=== PATIENT | female | born 1935 | race Caucasian/White ===

== ENCOUNTER 2019-08-30 13:57 | Inpatient (IN) | payer MEDICARE, SELFPAY ==
[2019-08-30] VITALS (8 sets, daily range): BP systolic 157–190; BP diastolic 98–109; PULSE 75–103; RESP 18–24; TEMP 36.2–37.4; O2SAT 83–95; BMI 27.3
--- NOTE | ~2019-08-30 | NM_ITS ---
EXAMINATION: NM pulmonary perfusion DATE: 08/31/2019 13:28 INDICATION: Severe hypoxemia. TECHNIQUE: 5.5 mCi Tc-99m MAA was administered intravenously for perfusion images. Scintigraphic maribel ges of the chest were obtained. COMPARISON: Chest single view 08/30/2019 FINDINGS: Perfusion images show small defects in the upper lobes. ] IMPRESSION: 1. Pulmonary embolism absent (normal or very low probability). Reviewed, dictated and finalized at location A.
--- NOTE | ~2019-08-30 | CT_ITS ---
EXAMINATION: CTA chest PE protocol DATE: 08/31/2019 13:04 INDICATION: Hypoxia, shortness of breath TECHNIQUE: Computed tomography angiography (CTA) of the chest was performed with 100 mL Omnipaque-350 intravenous contrast timed to evaluate the pulmonary arteries. Coronal maximum intensity projection 3D-reconstructions were created by the technologist. Automated exposure control and iterative reconst ruction technique were employed. Exam dose: 223.32 mGy-cm total exam DLP. COMPARISON: 08/30/2019 portable AP chest FINDINGS: There is diagnostic contrast enhancement of the pulmonary arteries and no evidence of main or segmental pulmonary artery embolism. The peripheral pulmonary arteries are not optimally demonstra noemy due to motion. Cardiomegaly. No pericardial or pleural effusion. No hilar or mediastinal mass lesion or lymphadenopathy. Normal size and homogeneous enhancement of th e thyroid gland. Mild thoracic aortic aneurysm, the ascending aorta measuring up to 4.2 cm approximat e diameter, the aortic arch approximately 3.1 cm diameter. No evidence of thoracic aortic dissection. No pulmonary consolidation. Normal adrenal glands. Status post cholecystectomy. Diverticulosis of the colon. There is a large osteosclerotic lesion of L1, most likely a bone island; osteosclerotic metastatic le carly would be less likely. IMPRESSION: No evidence of pulmonary embolism Mild thoracic aortic aneurysm Reviewed, dictated and finalized at Location A. Reviewed, dictated and finalized at location B.
--- NOTE | ~2019-08-30 | XR_ITS ---
EXAMINATION: XR chest 1V portable EXAM DATE: 08/30/2019 15:55 INDICATION: Hypoxia and shortness of breath. TECHNIQUE: Portable AP frontal chest x-ray was obtained. Comparison is made to prior examination from 08/17/2018. FINDINGS: The lungs are clear. There are no pleural effusions. The cardiac silhouette is enlarged. There is no pneumothorax suspected. Bones appear osteopenic. IMPRESSION: Cardiomegaly. Reviewed, dictated and finalized at location A. IMPRESSION: Cardiomegaly.
--- NOTE | 2019-08-30 14:38 | ECG_ITS ---
Measurements Intervals [place] Rate: 98 P: -2 [place]: 169 QRS: -21 QRSD: 93 T: -18 QT: 344 QTc: 439 Interpretive Statements SINUS RHYTHM WITH SINUS ARRHYTHMIA POSSIBLE LEFT ATRIAL ENLARGEMENT POSSIBLE LEFT VENTRICULAR HYPERTROPHY BORDERLINE ST-T WAVE ABNORMALITY- DIFFUSE LEADS BASELINE ARTIFACT- I, III, AVL, AVF BORDERLINE ECG Electronically Signed On 08-30-2019 16:14:19 CDT by Nithin Lobo D.O.
--- NOTE | 2019-08-30 14:45 | ED.SOB ---
HPI - SOB/Dyspnea General Chief Complaint: Shortness of Breath/Dyspnea Stated Complaint: sob. sent from md office Time Seen by Provider: 08/30/19 14:23 Source: patient and family Mode of arrival: wheelchair Limitations: no limitations History of Present Illness HPI Narrative: THis patient is an 83 year old female with history of chronic hypoxemia, on home oxygen who presents from Dr. Wilde's office due to low oxygen saturation. Patient states that she wears 2 NC at home and she went for follow up appointment today. Patient was told that her oxygen was too low and she was found to have high blood pressure so she was sent to ER. Patient reports she does not feel more short of breath than usual. She denies worsening cough, fever, chills, nausea or vomiting. She also denies URI symptoms. Patient also denies chest pain. She reportes she has some anxiousness and dizziness early but she states she feels fine. She states she does not want to be intubated but she is okay with BIPAP. Related Data Home Medications Medication Instructions Recorded Confirmed aspirin 81 mg tablet,delayed 81 mg PO DAILY 01/27/19 08/30/19 release calcium carbonate 600 mg calcium 600 mg PO DAILY 01/27/19 08/30/19 (1,500 mg) tablet docusate sodium 50 mg capsule 50 mg PO DAILY 01/27/19 08/30/19 ibuprofen 200 mg tablet 200 mg PO Q6H PRN 01/27/19 08/30/19 multivitamin 1 tablet PO DAILY 01/27/19 08/30/19 vitamin B complex 1 tablet PO DAILY 01/27/19 08/30/19 Allergies Allergy/AdvReac Type Severity Reaction Status Date / Time Iodinated Contrast Media Allergy Unknown Hives Verified 08/30/19 14:43 iodine Allergy Unknown Unknown Verified 08/30/19 14:43 Penicillins Allergy Unknown Rash Verified 08/30/19 14:43 shellfish derived Allergy Unknown Hives Verified 08/30/19 14:43 IV CONTRAST Allergy Unknown unknown Uncoded 08/30/19 14:43 Review of Systems Review of Systems: All systems reviewed & are unremarkable except as noted in HPI and below Constitutional: Constitutional: Denies chills, Denies fever(s) and Denies weakness Cardiovascular: Cardiovascular: Denies chest pain Respiratory: Respiratory: Denies chest congestion, Denies cough, Reports dyspnea (chronc) and Denies wheezing Gastrointestinal: Gastrointestinal: Denies abdominal pain, Denies diarrhea, Denies nausea and Denies vomiting Integumentary/Breasts: Skin/Breast: Denies breast pain PMFSH Past Medical History Medical History (Updated 08/30/19 @ 18:56 by Yanni Contreras MD) Breast cancer Hypertension PFO (patent foramen ovale) Family History Family History (Updated 05/27/17 @ 08:18 by DOCTOR UNKNOWN) Father Family history of cardiovascular disease Mother Family history of cardiovascular disease Sibling Family history of cardiovascular disease Social History Social History Smoking status: Never smoker Second hand tobacco smoke exposure: No Alcohol intake: never Exam Narrative: Exam Narrative: GENERAL: Well-appearing, well-nourished, and in no acute distress. HEAD: Normocephalic, atraumatic EYES: PERRLA and EOMI, conjunctiva clear without discharge EARS: TM's clear bilaterally without erythema or dullness NOSE: Nares clear, no rhinorrhea or epistaxis THROAT:Mucous membranes moist, Oropharynx normal without erythema, exudate, peritonsillar swelling or fluctuance NECK: Supple, without lymphadenopathy or mass RESPIRATORY: No respiratory distress, Airway patent, Respirations non-labored, Clear to auscultation without rales, rhonchi or wheeze HEART: Regular rate and rhythm. No murmur heard. Normal peripheral pulses. ABDOMEN: Soft, nontender, nondistended, normal active bowel sounds. No masses. No rebound or guarding, No organomegaly. EXTREMITIES: No edema, normal strength with full range of motion. SKIN: Warm, dry, normal color without rash NEURO: Alert and oriented x3. CN 2-12 grossly intact.
[2019-08-30 15:05] LABS: Alveolar/Arterial O2 Gradient 290.7 mmHg; Base Excess ABG -1.8 mEq/l (+/-2.0); Carboxyhemoglobin 0.6 % THb (0-2.0); Fractional Inspired Oxygen 52 %; HCO3 ABG 20.8 mEq/l (22.0-26.0); Methemoglobin ABG 0.3 %THb (0-1.5); Oxygen Content ABG 20.6 %vol (16.0-22.0); Oxyhemoglobin 84.9 % THb (90.0-100.0); PCO2 ABG 30.5 mmHg (35.0-45.0); PO2 FiO2 Ratio Arterial Blood 0.88 %; Reduced Hemoglobin 14.2 %THb (0-5.0); Total Hemoglobin 17.3 g/dL (12.0-18.0); pH ABG 7.451 (7.350-7.450)
[2019-08-30 15:10] LABS: PO2 ABG 45.9 mmHg (80.0-100.0)
[2019-08-30 15:11] LABS: Device NASAL CANNULA; Modified Allen's Test Pass; Oxygen Saturation ABG 84.5 % (95.0-100.0); Site Drawn RIGHT RADIAL
[2019-08-30 15:21] LABS: Basophils Absolute Auto 0.1 K/mm3 (0.0-0.1); Basophils Percent Auto 0.5 % (0.2-1.2); Eosinophils Absolute Auto 0.2 K/mm3 (0-0.3); Eosinophils Percent Auto 2.3 % (0-4.4); Hematocrit 51.6 % (37.0-47.0); Hemoglobin 17.2 g/dL (12.0-15.0); Immature Granulocyte Absolute 0.04 K/mm3 (0.00-0.031); Immature Granulocyte Percent A 0.4 % (0-0.5); Lymphocytes Absolute Auto 2.09 K/mm3 (0.9-3.2); Lymphocytes Percent Auto 21.8 % (18.3-44.2); Mean Corpuscular HGB Conc 33.3 g/dl (32-36); Mean Corpuscular Hemoglobin 29.5 pg (26-34); Mean Corpuscular Volume 88.5 fl (80-100); Mean Platelet Volume 9.3 fl (7.4-10.4); Monocytes Absolute Auto 0.6 K/mm3 (0.1-0.6); Monocytes Percent Auto 6.1 % (2.6-8.5); Neutrophils Absolute Auto 6.6 K/mm3 (1.3-6.7); Neutrophils Percent Auto 68.9 % (45.5-73.1); Platelet Count Result 324 k/mm3 (150-375); Red Blood Count 5.83 M/mm3 (4.2-5.4); Red Cell Distribution Width 14.7 % (11.5-14.5); White Blood Count 9.6 K/mm3 (4.5-10.0)
[2019-08-30 15:37] LABS: Alanine Aminotransferase 23 U/L (4-35); Albumin Level 4.5 g/dL (3.5-5.1); Alkaline Phosphatase 114 U/L (38-126); Aspartate Amino Transferase 31 U/L (14-36); Bilirubin,Total 0.7 mg/dL (0.2-1.3); Blood Urea Nitrogen 14 mg/dL (7-17); Carbon Dioxide 25 mmol/L (22-30); Chloride 103 mmol/L (98-107); Estimated CRCL calculation 49 ml/min; Estimated Glomerular Filt Rate > 60; Glucose 100 mg/dL (65-105); Potassium 3.6 mmol/L (3.4-5.0); Sodium 137 mmol/L (137-145)
[2019-08-30] MEDS: ENOXAPARIN 80 MG/0.8 ML SYRINGE 70 MG SUB-Q (17:31)
--- NOTE | 2019-08-30 19:38 | ADMGEN ---
This patient, Allison Gong, was admitted to IMU Room 204-01. Patient/family oriented to hospital policies and general routines including ID bracelet, bed and alarms, visiting hours, pain management, procedures, bathroom and other care routines, personal items, smoking policy, room service/diet, and visiting hours. Valuables list has been completed. Information on how to activate the Rapid Response Team has been discussed. Patient/Family are encouraged to report perceived risks to care and to ask questions if they do not understand what they are told or what they should do.
--- NOTE | 2019-08-30 21:59 | PM.IMHP ---
H&P: HPI History of Present Illness Chief complaint: chronic hypoxemia/hypertension Narrative: Allisno Gong is a 83 year old female the patient has had chronic hypoxia has been on O2 at 2 L during the day and 1 L at night. The patient tells me that she feels fine she is not short of breath. She tells me that she has had an extensive workup for her hypoxia in the past. The patient does have a patent pfo. there is a temporary closure of the PFO at 1 time to see if her hypoxia improved and had not. The patient saw Pieter bruno and Dr. Wilde is office today and the patient's O2 saturations were found to be too low. And her blood pressure was high. The patient does not feel any more short of breath than usual. She has no fever no chills no cough no dizziness. She states that she feels fine. She was sent to the emergency room due to low O2 saturations and high blood pressure. Dr. Wilde has been notified. The patient is unable to get a CT pulmonary at this time due to contrast allergy. However subcu Lovenox was given prophylactically for possible PE. The patient has had a small PE in the past had had been on Xarelto For short period of time. Patient was placed on a non-rebreather. The patient is now satting 95% on 15 L per nasal cannula. Date of service 08/30/2019 Review of Systems Review of Systems: All systems reviewed & are unremarkable except as noted in HPI and below Constitutional: Constitutional: Reports as per HPI and Reports no additional constitutional complaints Eyes: Eyes: Reports as per HPI and Reports no additional eye complaints ENT: Reports system reviewed and no additional complaints, except as documented and Reports Normal hearing present Cardiovascular: Cardiovascular: Reports no additional cardiovascular complaints Respiratory: Respiratory: Reports no additional respiratory complaints and Reports no additional respiratory complaints Gastrointestinal: Gastrointestinal: Reports as per HPI and Reports no additional gastrointestinal complaints Musculoskeletal: Musculoskeletal: Reports no additional musculoskeletal complaints Integumentary/Breasts: Skin/Breast: Reports system reviewed and no additional complaints, except as docu and Reports as per HPI Neurologic: Reports system reviewed and no additional complaints, except as documented, Reports as per HPI and Reports Normal hearing present Psychiatric: Psychiatric: Reports no additional psychiatric complaints and Reports as per HPI Endocrine: Endocrine: Reports no additional endocrine complaints Hematologic/Lymphatic: Hematologic/Lymphatic: Reports no additional hematologic/lymphatic complaints Allergic/Immunologic: Allergic/Immunologic: Reports no additional allergic/immunologic complaints PMFSH Past Medical History Medical History (Updated 08/30/19 @ 22:14 by Florecita Moseley NP) Breast cancer CVA (cerebral vascular accident) cerebellar Depression History of breast cancer lumpectomy and tamoxifen History of kidney stones Hyperlipidemia Hypertension Hypertension Migraines Osteoporosis PFO (patent foramen ovale) Pulmonary emboli the patient stated that she was on Xarelto for Scharff. Time. Right wrist fracture Surgical History Surgical History (Updated 08/30/19 @ 22:10 by Florecita Moseley NP) H/O cataract extraction bilateral History of appendectomy History of laparoscopic cholecystectomy Status post left breast lumpectomy Status post-operative repair of closed fracture of right hip Family History Family History (Updated 08/30/19 @ 22:11 by Florecita Moseley NP) Father Family history of cardiovascular disease Mother Family history of cardiovascular disease Cancer Sibling Family history of cardiovascular disease Son Murder of stranger Social History Social History (Updated 08/30/19 @ 22:12 by Florecita Moseley NP) Social History: the patient has been recently and has lost her son. She had 7 children prior
[2019-08-30] MEDS: DOCUSATE SODIUM 100 MG CAPSULE PO (22:33)
[2019-08-30] MEDS: AMITRIPTYLINE HCL 10 MG TABLET PO (22:33)
[2019-08-30] MEDS: predniSONE 10 MG TABLET 50 MG PO (22:34)
[2019-08-30] MEDS: IBUPROFEN 200 MG TABLET PO (22:36)
[2019-08-31] VITALS (19 sets, daily range): BP systolic 114–148; BP diastolic 66–92; PULSE 71–100; RESP 16–22; TEMP 36.5–36.9; O2SAT 90–100
--- NOTE | 2019-08-31 | ECHO_ITS ---
Patient Info Name: Allison Gong Age: 83 years : 1935 Gender: Female Ht: 62 in Wt: 149 lbs BSA: 1.74 m2 HR: 74 bpm BP: 114 / 66 mmHg Heart Rhythm: Sinus Rhythm Exam Date: 08/31/2019 10:27 AM Exam Location: [facility] Pulmonary Patient Status: Inpatient Admit Date: 08/30/2019 Staff Ordering Physician: Anneliese Mayo MD Crystal Attacher: Charo Galvez RDCS Attending Provider: Helio Fitzgerald MD Exam Type: CA echo doppler w bubble study Study Info Indications - HYPOXEMIA H/O PARTIAL PFO CLOSURE Complete two-dimensional, color flow and Doppler transthoracic echocardiogram is performed with agitated saline. Contrast/Agitated Saline Contrast/Ag. Saline: Agitated Saline Amount: 20.00 ml Administered By: Sergei Dalton RN Existing IV Access: Yes IV Access Condition: patent with no signs of infiltration Summary 1. Left ventricular chamber dimension is normal. 2. Left ventricular systolic function is normal, estimated at >70%. 3. There is no increased left ventricular wall thickness. 4. Left ventricular septal wall motion is normal. 5. The left ventricular diastolic function is abnormal. 6. Left atrial chamber dimension is moderately enlarged. 7. Right atrial chamber dimension is mildly enlarged. 8. Atrial septal defect occluder visualized by agitated saline imaging. 9. Positive agitated saline study consistent with PFO. 10. There is mild aortic valve regurgitation. 11. There is mild tricuspid valve regurgitation. 12. There is mild pulmonic regurgitation. Left Ventricle Left ventricular chamber dimension is normal. Left ventricular systolic function is normal, estimated at >70%. There is no increased left ventricular wall thickness. Left ventricular septal wall motion is normal. The left ventricular diastolic function is abnormal. Right Ventricle Right ventricular chamber dimension is normal. Right ventricular systolic function is normal. Left Atria Left atrial chamber dimension is moderately enlarged. Right Atria Right atrial chamber dimension is mildly enlarged. Atrial Septum Atrial septal defect occluder visualized by agitated saline imaging. Positive agitated saline study consistent with PFO. Aortic Valve The aortic valve is trileaflet. There is mild aortic valve sclerosis. There is no aortic valve stenosis. There is mild aortic valve regurgitation. Pulmonic Valve The pulmonic valve is normal. There is no pulmonic valve stenosis. There is mild pulmonic regurgitation. Mitral Valve The mitral valve has calcified annulus. There is no mitral valve stenosis. There is trace mitral valve regurgitation. Tricuspid Valve The tricuspid valve leaflets are normal. There is no significant tricuspid valve stenosis. There is mild tricuspid valve regurgitation. No pulmonary hypertension, estimated pulmonary arterial systolic pressure is 29 mmHg. Pericardium/Pleural The pericardium appears normal. There is trivial pericardial effusion. Inferior Vena Cava Normal inferior vena cava with >50% collapse upon inspiration consistent with elevated right atrial pressure, 10 mmHg. Aorta The aortic root size at the sinus of Valsalva is normal. The prox ascending aorta size is normal. Left Ventricular Outflow Tract Name Value Normal
[2019-08-31] MEDS: hydrALAZINE HCL 20 MG/ML VIAL 10 MG IV PUSH (00:03)
[2019-08-31 05:04] LABS: Lactic Acid 3.2 mmol/L (0.7-2.1)
[2019-08-31 05:10] LABS: Alanine Aminotransferase 21 U/L (4-35); Albumin Level 4.2 g/dL (3.5-5.1); Alkaline Phosphatase 112 U/L (38-126); Aspartate Amino Transferase 27 U/L (14-36); Bilirubin,Total 0.8 mg/dL (0.2-1.3); Blood Urea Nitrogen 15 mg/dL (7-17); CRP 0.5 mg/dL (<1.0); Calcium 10.4 mg/dL (8.4-10.2); Carbon Dioxide 22 mmol/L (22-30); Chloride 104 mmol/L (98-107); Estimated CRCL calculation 55 ml/min; Estimated Glomerular Filt Rate > 60; Glucose 155 mg/dL (65-105); Magnesium 2.2 mg/dL (1.6-2.3); Potassium 3.6 mmol/L (3.4-5.0); Sodium 137 mmol/L (137-145)
[2019-08-31] MEDS: predniSONE 10 MG TABLET 50 MG PO ×2 (05:20→12:05)
--- NOTE | 2019-08-31 09:28 | PM.CNPUL ---
Assessment and Plan Assessment and plan (1) Acute on chronic respiratory failure with hypoxemia: Code(s): J96.21 - Acute and chronic respiratory failure with hypoxia Status: Acute Assessment and Plan: Likely due to PFO or other intracardiac shunts or extracardiac shunting. I agree with ruling out P.E. although this is unlikely - since she has signs of worsening hypoxemia with elevated Hgb and Hct she should be transferred to [place] for further workup of intracardiac shunting and to reconsider closure of PFO. History of Present Illness History of Present Illness Consult date: 08/31/19 Chief complaint: chronic hypoxemia/hypertension Narrative: 83 y/o with chronic hypoxemia presents with acute on chronic hypoxemia in the clinic with sats into low 80's. We admitted her to the hospital even thougth she was asymptomatic and she required up to 15 liters of oxygen overnight and this morning weaned to 5 liters with sats remaining above 92%. Her Hgb and Hct wwere also increased suggesting worsening chronic hypoxemia at home. She has normal PFT with normal DLCO. She does have a PFO with partial closure showing no improvment in O2 saturation. Her BP was also a bit high yesterday. She feels fine today and is asymptomatic. Review of Systems Review of Systems: All systems reviewed & are unremarkable except as noted in HPI and below PMFSH Past Medical History Medical History (Updated 08/31/19 @ 09:38 by Anneliese Maoy MD) Breast cancer CVA (cerebral vascular accident) cerebellar Depression History of breast cancer lumpectomy and tamoxifen History of kidney stones Hyperlipidemia Hypertension Hypertension Migraines Osteoporosis PFO (patent foramen ovale) Pulmonary emboli the patient stated that she was on Xarelto for Scharff. Time. Right wrist fracture Surgical History Surgical History (Updated 08/30/19 @ 22:10 by Florecita Moseley NP) H/O cataract extraction bilateral History of appendectomy History of laparoscopic cholecystectomy Status post left breast lumpectomy Status post-operative repair of closed fracture of right hip Family History Family History (Updated 08/30/19 @ 22:11 by Florecita Moseley NP) Father Family history of cardiovascular disease Mother Family history of cardiovascular disease Cancer Sibling Family history of cardiovascular disease Son Murder of stranger Social History Social History (Updated 08/30/19 @ 22:12 by Florecita Moseley NP) Social History: the patient has been recently and has lost her son. She had 7 children prior to that. 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 No alcohol or illicit drugs. She has a modified code she does want to be on the ventilator. Koki Sutton is her daughter who is a durable power bee robber for healthcare. Smoking status: Never smoker Second hand tobacco smoke exposure: No Alcohol intake: never Substance use: never Gender identity (if verbalized by the patient): Female Spiritual care concerns: Yes Meds Home Medications and Allergies Home Medications Medication Instructions Recorded Confirmed Type aspirin 81 mg tablet,delayed 81 mg PO DAILY 01/27/19 08/30/19 History release calcium carbonate 600 mg calcium 600 mg PO QAM 01/27/19 08/30/19 History (1,500 mg) tablet docusate sodium 50 mg capsule 50 mg PO QPM 01/27/19 08/30/19 History ibuprofen 200 mg tablet 200 mg PO Q6H PRN 01/27/19 08/30/19 History multivitamin 1 tablet PO DAILY 01/27/19 08/30/19 History vitamin B complex 1 tablet PO DAILY 01/27/19 08/30/19 History hydrochlorothiazide 25 mg tablet 25 mg PO DAILY #90 tablet 02/08/19 08/30/19 Rx lisinopril 40 mg tablet 40 mg PO DAILY #90 tablet 03/26/19 08/30/19 Rx atorvastatin 20 mg tablet 20 mg PO DAILY #90 tablet 05/17/19 08/30/19 Rx pramipexole 0.25 mg tablet 0.25 mg PO BID #180 tablet 06/07/19 08/30/19 Rx amitriptyline 10 mg tablet 10 mg PO .qhs #30 tablet 0
[2019-08-31] MEDS: CALCIUM CARBONATE (OSCAL) 500 MG TABLET PO (10:21)
[2019-08-31] MEDS: ASPIRIN 81 MG ENTERIC TABLET PO (10:21)
[2019-08-31] MEDS: ATORVASTATIN 20 MG TABLET PO (10:21)
[2019-08-31] MEDS: ENOXAPARIN 80 MG/0.8 ML SYRINGE 70 MG SUB-Q (10:21)
[2019-08-31] MEDS: hydroCHLOROthiazide 25 MG TABLET PO (10:22)
[2019-08-31] MEDS: MULTIVITAMINS THERAPEUTIC TAB (*BKC) 1 TABLET PO (10:22)
[2019-08-31] MEDS: lisinopriL 20 MG TABLET 40 MG PO (10:22)
[2019-08-31] MEDS: VITAMIN B COMPLEX CAPSULE 1 CAP PO (10:23)
[2019-08-31] MEDS: diphenhydrAMINE HCl CAP 25 MG CAPSULE PO (12:06)
--- NOTE | 2019-08-31 17:16 | PM.IMPN ---
Progress Note: A&P Assessment and Plan (1) Hypoxemia: Code(s): R09.02 - Hypoxemia Status: Chronic Assessment and Plan: Even when the patient is on a non-rebreather and also on high-flow the patient's O2 saturations not come up any greater than 89%. This is a chronic condition and the patient apparently has been tolerating this. She does not look toxic and is not short of breath. Patient has a patent PF all and even when that was temporarily closed it still did not make any difference. Will do a CT pulmonary to check for any PEs as she has had a history of having small PE in the past. She had been on Xarelto for small prior and of time. Weight empirically started her on some subcu Lovenox in the event that she would possibly have of PE. However the patient is not tachycardic or tachypneic I do not believe that it is a PE but just for thoroughness sake will check CT a pulmonary. Pulmonology has been consulted. 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 however this is chronic condition for the patient, patient was seen at the [facility] and had extensive workup without any surgical correction of her PFO, patient has remained clinically stable and does not wish to be transferred to [facility]. patient is seen by her central office inspector and further recommendation to follow (2) Hypertension: Code(s): I10 - Essential (primary) hypertension Status: Acute Assessment and Plan: P.r.n. hydralazine. Continue with hydrochlorothiazide and lisinopril. (3) PFO (patent foramen ovale): Code(s): Q21.1 - Atrial septal defect Status: Chronic Assessment and Plan: Patient was seen by specialist. It is a chronic condition. We will repeat an echo but not with the bubble study his VRE know that she has a patent PFO. (4) Depression: Code(s): F32.9 - Major depressive disorder, single episode, unspecified Status: Chronic Assessment and Plan: Continue with amitriptyline. (5) Hyperlipidemia: Code(s): E78.5 - Hyperlipidemia, unspecified Status: Chronic Assessment and Plan: Continue with Lipitor. 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 however this is chronic condition for the patient, patient was seen at the [facility] and had extensive workup without any surgical correction of her PFO, patient has remained clinically stable and does not wish to be transferred to [facility]. patient is seen by her central office inspector and further recommendation to follow Review of Systems Review of Systems: All systems reviewed & are unremarkable except as noted in HPI and below Exam Narrative: Exam Narrative: elderly frail Const: General: comfortable and no acute distress HENMT: General nose exam: Normal nares present Mouth: Yes moist mucous membranes Eyes: Sclera: sclerae normal Neck: Neck: supple Resp: Other: bilateral poor air entry with harsh breath sounds Cardio: Rate: regular rate Rhythm: regular rhythm GI: Auscultation: normal bowel sounds Skin: General skin exam: normal colo
[2019-08-31] MEDS: AMITRIPTYLINE HCL 10 MG TABLET PO (19:59)
[2019-08-31] MEDS: DOCUSATE SODIUM 100 MG CAPSULE PO (20:00)
[2019-08-31] MEDS: IBUPROFEN 200 MG TABLET PO (20:00)
[2019-08-31] MEDS: PRAMIPEXOLE 0.25 MG TABLET PO (20:00)
[2019-09-01] VITALS (10 sets, daily range): BP systolic 112–148; BP diastolic 82–99; PULSE 60–87; RESP 18–22; TEMP 36.6–36.8; O2SAT 90–99
[2019-09-01 04:43] LABS: Hematocrit 46.9 % (37.0-47.0); Hemoglobin 15.9 g/dL (12.0-15.0); Mean Corpuscular HGB Conc 33.9 g/dl (32-36); Mean Corpuscular Hemoglobin 30.2 pg (26-34); Mean Corpuscular Volume 89.2 fl (80-100); Mean Platelet Volume 9.6 fl (7.4-10.4); Platelet Count Result 330 k/mm3 (150-375); Red Blood Count 5.26 M/mm3 (4.2-5.4); Red Cell Distribution Width 14.7 % (11.5-14.5); White Blood Count 19.6 K/mm3 (4.5-10.0)
[2019-09-01 04:55] LABS: Blood Urea Nitrogen 22 mg/dL (7-17); Calcium 11.2 mg/dL (8.4-10.2); Carbon Dioxide 22 mmol/L (22-30); Chloride 101 mmol/L (98-107); Estimated CRCL calculation 47 ml/min; Estimated Glomerular Filt Rate > 60; Glucose 123 mg/dL (65-105); Potassium 3.4 mmol/L (3.4-5.0); Sodium 134 mmol/L (137-145)
--- NOTE | 2019-09-01 06:02 | WPDCDIQUERY2 ---
CDI Query Clarification Request - Pt on home O2 at 2L per history - Acute on chronic respiratory failure and Chronic hypoxemia presents with acute on chronic hypoxemia in the clinic with sats into low80's. We admitted her to the hospital even though she was asymptomatic, she required up to 15 liters of oxygen overnight and this morning weaned to 5 liters with sats remaining above 92%. documented by auto claim representative. - 08/29 ABG's pH 7.451 pCO2 30.5, pO2 45.9, HCO3 20.8, O2sats 84.9% on 8L O2 - Chronic respiratory failure documented by hospitalists. Please clarify if acute respiratory failure was ruled in or ruled out. <Suri Enrique RN - Last Filed: 09/01/19 08:02>
[2019-09-01] MEDS: lisinopriL 20 MG TABLET 40 MG PO (08:25)
[2019-09-01] MEDS: hydroCHLOROthiazide 25 MG TABLET PO (08:25)
[2019-09-01] MEDS: ATORVASTATIN 20 MG TABLET PO (08:25)
[2019-09-01] MEDS: CALCIUM CARBONATE (OSCAL) 500 MG TABLET PO (08:25)
[2019-09-01] MEDS: ASPIRIN 81 MG ENTERIC TABLET PO (08:25)
[2019-09-01] MEDS: VITAMIN B COMPLEX CAPSULE 1 CAP PO (08:26)
[2019-09-01] MEDS: MULTIVITAMINS THERAPEUTIC TAB (*BKC) 1 TABLET PO (08:26)
--- NOTE | 2019-09-01 14:43 | PM.IMPN ---
Progress Note: A&P Assessment and Plan (1) Hypoxemia: Code(s): R09.02 - Hypoxemia Status: Chronic Assessment and Plan: Even when the patient is on a non-rebreather and also on high-flow the patient's O2 saturations not come up any greater than 89%. This is a chronic condition and the patient apparently has been tolerating this. She does not look toxic and is not short of breath. Patient has a patent PF all and even when that was temporarily closed it still did not make any difference. Will do a CT pulmonary to check for any PEs as she has had a history of having small PE in the past. She had been on Xarelto for small prior and of time. Weight empirically started her on some subcu Lovenox in the event that she would possibly have of PE. However the patient is not tachycardic or tachypneic I do not believe that it is a PE but just for thoroughness sake will check CT a pulmonary. Pulmonology has been consulted. 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 however this is chronic condition for the patient, patient was seen at the [facility] and had extensive workup without any surgical correction of her PFO, patient has remained clinically stable and does not wish to be transferred to [facility]. patient is seen by her high school english teacher and further recommendation to follow, today patient states is feeling much able to ambulate to the bathroom without any difficulty, is not a short of breath as when she arrived, will have a PT OT evaluate patient, patient be seen by Dr. Wilde and further recommendation to follow (2) Hypertension: Code(s): I10 - Essential (primary) hypertension Status: Acute Assessment and Plan: P.r.n. hydralazine. Continue with hydrochlorothiazide and lisinopril. (3) PFO (patent foramen ovale): Code(s): Q21.1 - Atrial septal defect Status: Chronic Assessment and Plan: Patient was seen by specialist. It is a chronic condition. We will repeat an echo but not with the bubble study his VRE know that she has a patent PFO. (4) Depression: Code(s): F32.9 - Major depressive disorder, single episode, unspecified Status: Chronic Assessment and Plan: Continue with amitriptyline. (5) Hyperlipidemia: Code(s): E78.5 - Hyperlipidemia, unspecified Status: Chronic Assessment and Plan: Continue with Lipitor. (6) Acute on chronic respiratory failure with hypoxemia: Code(s): J96.21 - Acute and chronic respiratory failure with hypoxia Status: Acute Assessment and Plan: patient with a history of chronic respiratory failure on home oxygen now presents with acute on chronic respiratory failure most likely exacerbation of her PFO. 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 however this is chronic condition for the patient, patient was seen at the [facility] and had extensive workup without any surgical correction of her PFO, patient has remained clinically stable and does not wish to be transferred to [facility]. patient is seen by her high school english teacher
--- NOTE | 2019-09-01 17:16 | PM.PNPUL ---
Progress Note: A&P Assessment and Plan (1) Acute on chronic respiratory failure with hypoxemia: Code(s): J96.21 - Acute and chronic respiratory failure with hypoxia Status: Acute Assessment and Plan: Likely due to PFO or other intracardiac shunts or extracardiac shunting. She does not have a PE, had a negative CTA 08/30. She does not want additional evaluation at [facility]. She has elevated Hgb and Hct indicating worsening hypoxemia. Subjective Date/time seen: 09/01/19 17:16 This patient is 83 yo, seen in follow up for hypoxemia due to PFO. She is on 3 L min with saturation 86-92%. Her saturation drops with exertion. I spoke with Dae, . He asked questions about titrating O2. It is fine for her to increase flow rate if her saturation drops. However, a PFO is a shunt, and additional supplemental O2 does not often help saturation in the setting of a shunt. Increased O2 may help if she has another process such as pneumonia, mucus plugging, which she does nto seem to have now. Her CTA was negative for PE. She is free to follow up in the office. I told him that I am not providing much in the way of therapeutic intervention, but at her age, many patients like the routine of going to a doctor's visit, so she is welcome to have an appointment when she pleases. I let Dr Neves know that she is stable to discharge from a pulmonary standpoint. She has been to [facility] twice for this, and was not a candidate to have the PFO closed previously. Goal is O2 to keep saturation 88-92% on supplemental O2, now at 3 L/min. Review of Systems Review of Systems: All systems reviewed & are unremarkable except as noted in HPI and below (HPI) Exam Const: General: comfortable and no acute distress HENMT: Other: no perioral cyanosis present Eyes: General: appearance normal, both eyes and all related structures Neck: Neck: supple and no JVD Resp: Effort & Inspection: normal respiratory effort Auscultation: clear to auscultation bilaterally, no crackles, no rales, no rhonchi, no wheezes and lung sounds not diminished Cardio: Rate: regular rate Rhythm: regular rhythm Heart sounds: no murmurs GI: Auscultation: normal bowel sounds Skin: General skin exam: normal color Extrem: General: normal to inspection and no edema Other: no cyanosis or clubbing Objective Data Vital Signs Vital Signs: Vital Signs - 24 hr 08/31/19 18:00 08/31/19 19:11 08/31/19 20:00 Temperature 36.6 C Pulse Rate 98 97 96 Respiratory Rate 18 18 Blood Pressure 143/80 H Pulse Oximetry 97 90 08/31/19 22:00 08/31/19 23:53 09/01/19 00:00 Temperature 36.6 C Pulse Rate 86 87 72 Respiratory Rate 20 18 Blood Pressure 130/82 Pulse Oximetry 97 94 09/01/19 02:00 09/01/19 04:00 09/01/19 06:00 Temperature 36.6 C Pulse Rate 71 82 70 Respiratory Rate 20 Blood Pressure 136/99 H Pulse Oximetry 99 09/01/19 08:00 09/01/19 10:00 09/01/19 12:00 Temperature 36.6 C 36.8 C Pulse Rate 60 79 76 Respiratory Rate 20 18 Blood Pressure 148/82 H 130/89 Pulse Oximetry 93 92 09/01/19 16:00 09/01/19 17:09 Temperature Pulse Rate 74 87 Respiratory Rate 18 Blood Pressure Pulse Oximetry 92 Intake/Output Intake/Output: Intake & Output 08/29/19 08/30/19 08/31/19 09/01/19 23:59 23:59 23:59 23:59 Intake Total 600 300 Output Total 1500 1750 Balance -900 -1450 Meds/Results Medications: Active Medications Generic Name Dose Route Start Last Admin Trade Name Freq PRN Reason Stop Dose Admin Amitriptyline HCl 10 mg 08/30/19 22:10 08/31/19 19:59 Elavil PO 10 mg HS YEN Administration Aspirin 81 mg 08/31/19 09:00 09/01/19 08:25 Aspirin Ec PO 81 mg DAILY YEN Administration Atorvastatin Calcium 20 mg 08/31/19 09:00 09/01/19 08:25 Lipitor PO 20 mg DAILY YEN Administration Calcium Carbonate 500 mg 08/31/19 09:00 09/01/19 08:25 Oscal 500 Mg PO 09/30/19 09:01 500 mg
--- NOTE | 2019-09-01 17:50 | PM.DS ---
DS: Admitting Diagnosis Admitting Diagnosis Admitting Diagnosis: Hypoxemia DS: Discharge Diagnosis Discharge Diagnosis (1) Hypoxemia: Code(s): R09.02 - Hypoxemia Status: Chronic Assessment and Plan: Even when the patient is on a non-rebreather and also on high-flow the patient's O2 saturations not come up any greater than 89%. This is a chronic condition and the patient apparently has been tolerating this. She does not look toxic and is not short of breath. Patient has a patent PF all and even when that was temporarily closed it still did not make any difference. Will do a CT pulmonary to check for any PEs as she has had a history of having small PE in the past. She had been on Xarelto for small prior and of time. Weight empirically started her on some subcu Lovenox in the event that she would possibly have of PE. However the patient is not tachycardic or tachypneic I do not believe that it is a PE but just for thoroughness sake will check CT a pulmonary. Pulmonology has been consulted. 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 however this is chronic condition for the patient, patient was seen at the [facility] and had extensive workup without any surgical correction of her PFO, patient has remained clinically stable and does not wish to be transferred to [facility]. patient is seen by her heavy duty diesel mechanic and further recommendation to follow, today patient states is feeling much able to ambulate to the bathroom without any difficulty, is not a short of breath as when she arrived, will have a PT OT evaluate patient, patient be seen by Dr. Wilde and further recommendation to follow (2) Hypertension: Code(s): I10 - Essential (primary) hypertension Status: Acute Assessment and Plan: P.r.n. hydralazine. Continue with hydrochlorothiazide and lisinopril. (3) PFO (patent foramen ovale): Code(s): Q21.1 - Atrial septal defect Status: Chronic Assessment and Plan: Patient was seen by specialist. It is a chronic condition. We will repeat an echo but not with the bubble study his VRE know that she has a patent PFO. (4) Depression: Code(s): F32.9 - Major depressive disorder, single episode, unspecified Status: Chronic Assessment and Plan: Continue with amitriptyline. (5) Hyperlipidemia: Code(s): E78.5 - Hyperlipidemia, unspecified Status: Chronic Assessment and Plan: Continue with Lipitor. (6) Acute on chronic respiratory failure with hypoxemia: Code(s): J96.21 - Acute and chronic respiratory failure with hypoxia Status: Acute Assessment and Plan: patient with a history of chronic respiratory failure on home oxygen now presents with acute on chronic respiratory failure most likely exacerbation of her PFO. DS: Summary Hospital Course Reason for hospitalization: Narrative: Allison Gong is a 83 year old female the patient has had chronic hypoxia has been on O2 at 2 L during the day and 1 L at night. The patient tells me that she feels fine she is not short of breath. She tells me that she has had an extensive workup for her hypoxia in the past. The patient does have a patent pfo. there is a temporary closure of the PFO at 1 time to see if her hypoxia improved and had not. The patient saw Pieter bruno and Dr. Wilde is office today and the patient's O2 saturations were found to be too low. And her blood pressure was high. The patient does not feel any more short of breath than usual. She
== END 2019-09-01 19:40 | disposition home or self-care (01) | DRG 189 ==
LOC: ANHED 14:45 → ANHIMU 18:56
PROVIDERS: Nurse Practitioner; Admitting Provider Internal Medicine; Emergency Provider General Practice; PCP Family Medicine; Visit Provider Family Medicine
DX: J96.21 Acute and chronic respiratory failure with hypoxia; Q21.1 Atrial septal defect; Z99.81 Dependence on supplemental oxygen; E78.5 Hyperlipidemia, unspecified; I10 Essential (primary) hypertension; F32.9 Major depressive disorder, single episode, unspecified; M81.0 Age-related osteoporosis without current pathological fracture; Z79.82 Long term (current) use of aspirin; Z85.3 Personal history of malignant neoplasm of breast; Z86.711 Personal history of pulmonary embolism; Z86.73 Personal history of transient ischemic attack (TIA), and cerebral infarction without residual deficits; Z98.41 Cataract extraction status, right eye; Z98.42 Cataract extraction status, left eye; Z79.899 Other long term (current) drug therapy
CPT/HCPCS: 36415; 36600; 71045; 71275; 78580; 80048; 80053; 82375; 82805; 83050; 83605; 83735; 84443; 85025; 85027; 86140; 93005; 93306; 96375; 97161; 97165; 99285; A9270; A9540; J0360; J1650; J7512; Q9967

== ENCOUNTER 2020-04-06 07:22 | Outpatient (CLI) | payer MEDICARE, SELFPAY ==
--- NOTE | ~2020-04-06 | DEXA_ITS ---
Bone Density Report Name: Allison Gong Age: 84 Sex: Female Ethnicity: White Date of : 1935 Indication: osteopenia; monitoring treatment; height loss; prior fracture; cancer; Referring Provider: Sergei Luis Study: Bone densitometry was performed. Exam Date: April 06, 2020 Accession number: [id number] Bone Density: Region BMD T-score Z-score Classification AP Spine (L1, L4) 0.928 -1.0 1.8 Normal Femoral Neck (Left) 0.556 -2.6 -0.2 Osteoporosis Total Hip (Left) 0.650 -2.4 -0.1 Osteopenia World Health Organization criteria for BMD impression classify patients as: Normal (T-score at or above -1.0), Osteopenia (T-score between -1.0 and -2.5), or Osteoporosis (T-score at or below -2.5). 10-year Fracture Risk: FRAX not reported because: Some T-score for Spine Total or Hip Total or Femoral Neck at or below -2.5 Prior hip or vertebral fracture Treated for osteopor Previous Exams: Region Exam Age BMD T-score BMD Change BMD Change Date g/cm2 vs Baseline vs Previous AP Spine(L1, L4) 04/06/2020 84 0.928 -1.0 0.020(2.2%)# -0.078(-7.7%)* 05/30/2017 81 1.006 -0.3 0.098(10.8%)# 0.017(1.8%)# 12/19/2009 74 0.988 -0.4 0.081(8.9%)* 0.081(8.9%)* 10/07/2005 70 0.908 -1.2 Total Hip(Left) 04/06/2020 84 0.650 -2.4 -0.086(-11.7%) -0.062(-8.7%)* 05/30/2017 81 0.713 -1.9 -0.024(-3.2%)# -0.001(-0.2%)# 12/19/2009 74 0.714 -1.9 -0.022(-3.0%) -0.022(-3.0%) 10/07/2005 70 0.736 -1.7 *Denotes significance at 95% confidence level, LSC for AP Spine = 0.022 g/cm2, LSC for Total Hip = 0.027 g/cm2 Clinical Information Provided by Patient: Have had a previous hip or vertebral fracture Has had a low trauma fracture Is being treated for osteoporosis Has used the following medications: Fosamax (i.e. alendronate), Vitamin D, Calcium Has the following medical conditions: Cancer Patient maximum height was 64 Menopause Age: 46 Drinks caffeinated beverages Onset of menses at age 15 Number of children 7 Impression: The patient has established osteoporosis, based on the Left Femoral Neck T-score and the existence of a prior fracture. The patient has risk factors, including: previous fracture. The BMD for the AP Spine(L1, L4) decreased, changing by -7.7% since the last DXA exam. The BMD for the Total Hip(Left) decreased, changing by -8.7% since the last DXA exam. Discussion: SIGNIFICANT BONE LOSS OBSERVED. Adherence to therapy (including calcium and vitamin D intake) should be assessed. If compliance is not
--- NOTE | ~2020-04-06 | NM_ITS ---
EXAMINATION: NM parathyroid w imaging DATE: 04/06/2020 11:34 INDICATION: Hypercalcemia TECHNIQUE: 21.1 mCi Tc99m sestamibi (Cardiolite) was administered by intravenous route. Anterior imag es of the neck were obtained at 10 minutes and 2 hours. COMPARISON: None. FINDINGS/IMPRESSION: There is no focus of persistent activity in the area of the thyroid or mediastinum to suggest parathy roid adenoma. Reviewed, dictated and finalized at location A. L BOAT OPERATOR
--- NOTE | ~2020-04-06 | MM_ITS ---
EXAMINATION: MM screening lauryn BI w girma HISTORY: Screening mammogram, history of left breast cancer TECHNIQUE: Craniocaudal and mediolateral oblique 3-D tomosynthesis images were obtained and synthetic 2-D images were generated. CAD analysis was submitted and interpreted. COMPARISON: 05/30/2017, 01/24/2017, 12/25/2015, 11/24/2014 BREAST PARENCHYMAL COMPOSITION: There are scattered areas of fibroglandular density. FINDINGS: There is no evidence of suspicious mass, calcification, or architectural distortion to sugg est malignancy in either breast. There has been no suspicious interval change. IMPRESSION: 1. No mammographic evidence of malignancy. 2. Recommend routine screening mammography while the patient remains in good health. BI-RADS Category 2: Benign finding(s). Reviewed, dictated and finalized at location A. RTMENTAL BUYER IMPRESSION: 1. No mammographic evidence of malignancy. 2. Recommend routine screening mammography while the patient remains in good he alth. BI-RADS Category 2: Benign finding(s).
== END 2020-04-06 07:23 | disposition home or self-care (01) ==
PROVIDERS: Family Provider Family Medicine; PCP Family Medicine; Visit Provider Family Medicine
DX: Z78.0 Asymptomatic menopausal state (principal); E83.52 Hypercalcemia; Z12.31 Encounter for screening mammogram for malignant neoplasm of breast; M81.0 Age-related osteoporosis without current pathological fracture; M85.852 Other specified disorders of bone density and structure, left thigh
CPT/HCPCS: 77063; 77067; 77080; 78070; A9500

== ENCOUNTER 2020-06-26 13:17 | Inpatient (IN) | payer MEDICARE, SELFPAY ==
[2020-06-26] VITALS (22 sets, daily range): BP systolic 145–173; BP diastolic 92–110; PULSE 93–116; RESP 11–20; TEMP 37; O2SAT 88–94; BMI 26.2
--- NOTE | ~2020-06-26 | NM_ITS ---
EXAMINATION: NM pulmonary perfusion DATE: 07/06/2020 13:16 INDICATION: Shortness of breath. TECHNIQUE: 5.3 mCi Tc-99m MAA was administered intravenously for perfusion images. Scintigraphic maribel ges of the chest, head, and abdomen were obtained. COMPARISON: Chest single view 07/04/2020, chest CT 07/01/2020 FINDINGS: Perfusion images show normal perfusion in the lungs. There is no significant activity in the brain or kidneys. IMPRESSION: 1. No significant right to left shunt. 2. Pulmonary embolism absent. Reviewed, dictated and finalized at location B.
--- NOTE | ~2020-06-26 | XR_ITS ---
XR chest 1V portable DATE: 06/26/2020 14:02 INDICATION: Cough, sore throat TECHNIQUE: Portable AP chest on 06/26/2020 at 1358 hours COMPARISON: 08/31/2019 pulmonary perfusion scan 08/31/2019 CT pulmonary scan 08/30/2019 portable AP chest FINDINGS: Cardiac megaly. Aortic ectasia, calcification, tortuosity. Mild elevation right diaphragm. Minimal infiltrate or atelectasis at right lung base. The lungs other stewart appear clear. Surgical clips overlie left breast. Surgical clips, right upper quadrant, consistent with cholecystectomy. Diffuse osteopenia. Thoracic and lumbar scoliosis and degenerative change IMPRESSION: Cardiomegaly Aortic calcification, ectasia and tortuosity Mild infiltrate or atelectasis at the right lung base, mild elevation right diaphragm Reviewed, dictated and finalized at location A. IMPRESSION: Cardiomegaly Aortic calcification, ectasia and tortuosity Mild infiltrate or atelectasis at the right lung base, mild elevation right arabella phragm
--- NOTE | ~2020-06-26 | XR_ITS ---
EXAMINATION: XR chest 1V portable DATE: 07/04/2020 10:49 INDICATION: Shortness of breath. Congestive heart failure. TECHNIQUE: A single frontal view of the chest was obtained. COMPARISON: Chest single view 07/02/2020, chest CT 07/01/2020 FINDINGS: There is mild atelectasis in the lower lung zones. A calcified right lung nodule is consist ent with old granulomatous disease. No pleural effusion or pneumothorax. Cardiomegaly is noted. Surgi bridget clips in the right upper quadrant are likely from cholecystectomy. IMPRESSION: 1. Mild atelectasis in the lower lung zones. 2. Cardiomegaly. Reviewed, dictated and finalized at location B.
--- NOTE | ~2020-06-26 | CT_ITS ---
EXAMINATION: CT diagnostic chest wo con DATE: 06/26/2020 18:10 INDICATION: Shortness of breath TECHNIQUE: Computed tomography (CT) of the chest was performed without intravenous contrast. The dose -length product (DLP) was 08/31/2019 mGy-cm. Automated exposure control and iterative reconstruction t echnique were employed. COMPARISON: 08/31/2019 FINDINGS: There are minimal airspace opacities in the right lower lobe. No pleural effusion or pneumo thorax is identified. Cardiomegaly is noted. There is calcified coronary artery atherosclerosis. Ther e are no pathologically enlarged thoracic lymph nodes. Punctate calcifications in an otherwise normal spleen likely represent healed granulomatous disease. There is moderate thoracic spondylosis. IMPRESSION: 1. Minimal airspace opacities of the right lower lobe, consistent with atelectasis versus pneumonia. Reviewed, dictated and finalized at location A. IMPRESSION: 1. Minimal airspace opacities of the right lower lobe, consistent with atelecta sis versus pneumonia.
--- NOTE | ~2020-06-26 | XR_ITS ---
EXAMINATION: XR chest 1V portable DATE: 07/02/2020 08:38 INDICATION: Pneumonia TECHNIQUE: frontal view of the chest was obtained. COMPARISON: Chest radiograph dated 06/30/[address] dated 07/01/2020 FINDINGS: Mild elevation right hemidiaphragm with adjacent mild right basilar atelectasis. Additional discoid a telectasis/scarring in the left lower lung zone. Calcified nodule in the right lower lung zone and ca lcified right hilar lymph nodes consistent with old granulomatous disease. No pneumonia, pulmonary ed jesus, pleural effusion or pneumothorax. Cardiomegaly. Tortuous and ectatic thoracic aorta. Cholecystec idania clips in the right upper quadrant. Surgical clips at the inferolateral left breast. Severe right glenohumeral osteoarthritis. IMPRESSION: 1. Mild atelectasis in the bilateral lower lung zones. 2. Cardiomegaly 3. Tortuous and ectatic thoracic aorta. Reviewed, dictated and finalized at location A.
--- NOTE | ~2020-06-26 | XR_ITS ---
EXAMINATION: XR chest 1V portable EXAM DATE: 06/29/2020 09:28 INDICATION: Worsening hypoxemia. TECHNIQUE: Portable AP frontal chest x-ray was obtained. Comparison is made to prior examination from 06/26/2020. FINDINGS: There is cardiomegaly. There is tortuosity of the aorta. Right midlung zone granuloma. Some patchy right basilar atelectasis or pneumonia unchanged. The lungs are otherwise clear. There are n o pleural effusions. The cardiomediastinal silhouette is within normal limits. There is no pneumoth orax suspected. There are bony degenerative changes. IMPRESSION: 1. Unchanged patchy right basilar atelectasis and/or pneumonia. 2. Cardiomegaly. Reviewed, dictated and finalized at location A.
--- NOTE | ~2020-06-26 | XR_ITS ---
EXAMINATION: XR chest 2V DATE: 06/30/2020 08:50 INDICATION: Pneumonia. TECHNIQUE: Frontal and lateral views of the chest were obtained. COMPARISON: Chest single view 06/29/2020, chest CT 06/26/2020 FINDINGS: There are airspace opacities in right lower lung zone. A calcified right lung nodule and ca lcified right hilar lymph nodes are consistent with old granulomatous disease. No pleural effusion or pneumothorax. The heart size is normal. Surgical clips in the right upper quadrant are likely from c holecystectomy. IMPRESSION: 1. Worsened airspace opacities in right lower lung zone, consistent with atelectasis versus pneumonia . Reviewed, dictated and finalized at location A. IMPRESSION: 1. Worsened airspace opacities in right lower lung zone, consistent with atelec tasis versus pneumonia.
--- NOTE | ~2020-06-26 | CT_ITS ---
EXAMINATION: CTA chest PE protocol DATE: 07/01/2020 10:14 INDICATION: Hypoxia TECHNIQUE: Computed tomography angiography (CTA) of the chest was performed with 100 mL Omnipaque-350 intravenous contrast timed to evaluate the pulmonary arteries. Coronal maximum intensity projection 3D-reconstructions were created by the technologist. The dose-length product (DLP) was 421.64 mGy-cm. Automated exposure control and iterative reconstruction technique were employed. COMPARISON: 06/26/2020 FINDINGS: The pulmonary arteries are well-opacified. No pulmonary embolism is identified. There is wo rsening dependent atelectasis. No pleural effusion or pneumothorax is identified. A calcified nodule of the right lower lobe is consistent with old granulomatous disease. Cardiomegaly is noted. There ar e no pathologically enlarged thoracic nodes. There is moderate thoracic spondylosis. Punctate calcifi cations in an otherwise normal spleen likely represent healed granulomatous disease. The gallbladder is surgically absent. IMPRESSION: 1. No pulmonary embolism. 2. Worsening dependent atelectasis. 3. Cardiomegaly. Reviewed, dictated and finalized at location A.
--- NOTE | 2020-06-26 13:27 | ECG_ITS ---
Measurements Intervals [place] Rate: 92 P: -10 OR: 163 QRS: -22 QRSD: 95 T: -27 QT: 347 QTc: 431 Interpretive Statements SINUS RHYTHM ATRIAL PREMATURE COMPLEX LEFT VENTRICULAR HYPERTROPHY WITH ST-T CHANGE NONSPECIFIC ST & T-WAVE ABNORMALITY- DIFFUSE LEADS BASELINE ARTIFACT- I, III, AVL, V3-V5 BORDERLINE ECG Electronically Signed On 06-26-2020 13:45:14 CDT by Nithin Lobo D.O.
--- NOTE | 2020-06-26 13:58 | ED.SOB ---
HPI - SOB/Dyspnea General Chief Complaint: Shortness of Breath/Dyspnea <DO Jonathan Gonzalez Last Filed: 06/26/20 17:02> Stated Complaint: DIFFICULTY BREATHING,COUGH,FEVER <DO Jonathan Gonzalez Last Filed: 06/26/20 17:02> Time Seen by Provider: 06/26/20 13:30 <Rigoberto Henderson DO - Last Filed: 06/26/20 17:02> Source: RN notes reviewed <Rigoberto Henderson DO - Last Filed: 06/26/20 17:02> History of Present Illness HPI Narrative: Patient presents to emergency department from home for shortness of breath. Patient has a history of PFO and is chronically on 2 L nasal cannula she states that she developed a cough yesterday that is nonproductive as well as a fever up to 101 and a sore throat patient denies take anything for the fever she denies any chest pain abdominal pain nausea vomiting or any other symptoms. Patient states she does not use albuterol or any inhalers at home <DO Jonathan Gonzalez Last Filed: 06/26/20 17:02> Related Data Home Medications: Home Medications Medication Instructions Recorded Confirmed aspirin 81 mg tablet,delayed 81 mg PO DAILY 01/27/19 06/26/20 release calcium carbonate 600 mg calcium 600 mg PO QAM 01/27/19 06/26/20 (1,500 mg) tablet docusate sodium 50 mg capsule 50 mg PO QPM 01/27/19 06/26/20 ibuprofen 200 mg tablet 200 mg PO Q6H PRN 01/27/19 06/26/20 multivitamin 1 tablet PO DAILY 01/27/19 06/26/20 vitamin B complex 1 tablet PO DAILY 01/27/19 06/26/20 amitriptyline 10 mg PO HS 06/26/20 06/26/20 lisinopril 40 mg PO DAILY 06/26/20 06/26/20 lisinopril 40 mg PO DAILY 06/26/20 06/26/20 <DO Jonathan Gonzalez Last Filed: 06/26/20 17:02> Allergies/Adverse Reactions: Allergies Allergy/AdvReac Type Severity Reaction Status Date / Time Iodinated Contrast Media Allergy Unknown Hives Verified 06/26/20 13:27 iodine Allergy Unknown Unknown Verified 06/26/20 13:27 Penicillins Allergy Unknown Rash Verified 06/26/20 13:27 shellfish derived Allergy Unknown Hives Verified 06/26/20 13:27 IV CONTRAST Allergy Unknown unknown Uncoded 06/26/20 13:27 <Rigoberto Henderson DO - Last Filed: 06/26/20 17:02> Review of Systems Review of Systems: Narrative: Gen.: Reports fever Eyes: Denies eye pain or visual change ENT: Denies congestion reports sore throat Respiratory: See HPI CV: Denies chest pain or palpitations GI: Denies abdominal pain nausea, emesis or diarrhea Musculoskeletal: Denies back pain or muscle pain Neuro: Denies numbness, tingling, weakness or focal weakness Skin: Denies rash Except as documented, all other systems reviewed and negative <Rigoberto Henderson DO - Last Filed: 06/26/20 17:02> PMFSH Past Medical History Medical History: Medical History Breast cancer CVA (cerebral vascular accident) cerebellar Depression History of breast cancer lumpectomy and tamoxifen History of kidney stones Hyperlipidemia Hypertension Hypertension Migraines Osteoporosis PFO (patent foramen ovale) Pulmonary emboli the patient stated that she was on Xarelto for Scharff. Time. Right wrist fracture Thoracic aortic aneurysm <Rigoberto Henderson DO - Last Filed: 06/26/20 17:02> Surgical History Surgical History: Surgical History H/O cataract extraction bilateral History of appendectomy History of laparoscopic cholecystectomy Status post left breast lumpectomy Status post-operative repair of closed fracture of right hip <Rigoberto Henderson DO - Last Filed: 06/26/20 17:02> Family History Family History: Family History Father Family history of cardiovascular disease Mother Family history of cardiovascular disease Cancer Sibling Family history of cardiovascular disease Son Murder of stranger <Rigoberto Henderson DO - Last Filed: 06/26/20 17:02> Social History
[2020-06-26 14:09] LABS: Alveolar/Arterial O2 Gradient 197.7 mmHg; Base Excess ABG 0.5 mEq/l (+/-2.0); Fractional Inspired Oxygen 40 %; HCO3 ABG 23.6 mEq/l (22.0-26.0); Oxygen Content ABG 20.6 %vol (16.0-22.0); Oxyhemoglobin 86.1 % THb (90.0-100.0); PCO2 ABG 33.9 mmHg (35.0-45.0); PO2 FiO2 Ratio Arterial Blood 1.21 %; Total Hemoglobin 17.1 g/dL (12.0-18.0)
[2020-06-26 14:10] LABS: PO2 ABG 48.5 mmHg (80.0-100.0)
[2020-06-26 14:11] LABS: Device NASAL CANNULA; Modified Allen's Test Pass; Oxygen Saturation ABG 86.7 % (95.0-100.0); Site Drawn RIGHT RADIAL
[2020-06-26 14:11] LABS: Basophils Absolute Auto 0.1 K/mm3 (0.0-0.1); Basophils Percent Auto 0.5 % (0.2-1.2); Eosinophils Absolute Auto 0.3 K/mm3 (0-0.3); Hematocrit 47.9 % (37.0-47.0); Hemoglobin 16.1 g/dL (12.0-15.0); Immature Granulocyte Absolute 0.08 K/mm3 (0.00-0.031); Immature Granulocyte Percent A 0.5 % (0-0.5); Lymphocytes Absolute Auto 1.53 K/mm3 (0.9-3.2); Lymphocytes Percent Auto 9.4 % (18.3-44.2); Mean Corpuscular HGB Conc 33.6 g/dl (32-36); Mean Corpuscular Hemoglobin 30.3 pg (26-34); Mean Corpuscular Volume 90.2 fl (80-100); Mean Platelet Volume 9.1 fl (7.4-10.4); Monocytes Absolute Auto 0.8 K/mm3 (0.1-0.6); Monocytes Percent Auto 4.7 % (2.6-8.5); Neutrophils Absolute Auto 13.5 K/mm3 (1.3-6.7); Neutrophils Percent Auto 82.9 % (45.5-73.1); Platelet Count Result 273 k/mm3 (150-375); Red Blood Count 5.31 M/mm3 (4.2-5.4); Red Cell Distribution Width 14.8 % (11.5-14.5); White Blood Count 16.3 K/mm3 (4.5-10.0)
[2020-06-26] MEDS: IPRATROPIUM BR 0.02% INH SOLN 0.5 MG/2.5 ML VIAL INHALATION ×2 (14:17→22:21)
[2020-06-26] MEDS: ALBUTEROL SULFATE NEB 2.5 MG/0.5 ML INH 5 MG INHALATION (14:17)
[2020-06-26 14:21] LABS: INR 0.9; Prothrombin Time 12.9 Seconds (11.1-14.7)
[2020-06-26 14:22] LABS: Partial Thromboplastin Time 26.9 SECONDS (22.3-36.8)
[2020-06-26 14:51] LABS: Lactic Acid Reflex 1.7 mmol/L (0.7-2.1)
[2020-06-26 15:27] LABS: Alanine Aminotransferase 26 U/L (4-35); Albumin Level 4.3 g/dL (3.5-5.1); Alkaline Phosphatase 112 U/L (38-126); Anion Gap 8 mmol/L (8-16); Aspartate Amino Transferase 31 U/L (14-36); Blood Urea Nitrogen 14 mg/dL (7-17); Calcium 10.9 mg/dL (8.4-10.2); Carbon Dioxide 25 mmol/L (22-30); Chloride 106 mmol/L (98-107); Estimated CRCL calculation 52 ml/min; Estimated Glomerular Filt Rate > 60; Glucose 123 mg/dL (65-105); Potassium 3.2 mmol/L (3.4-5.0); Sodium 139 mmol/L (137-145)
[2020-06-26] MEDS: SODIUM CHLORIDE 0.9% IV 1,000 ML 999 ML IV CONT (16:57)
--- NOTE | 2020-06-26 17:11 | PC.NURSE ---
Dr. Henderson at bedside discussing results with pt.
[2020-06-26] MEDS: ACETAMINOPHEN 500 MG TABLET 1000 MG PO (17:23)
--- NOTE | 2020-06-26 18:02 | PC.NURSE ---
Pt to CT.
--- NOTE | 2020-06-26 19:16 | PC.NURSE ---
Report given to ENAM Park
--- NOTE | 2020-06-26 20:14 | PC.NURSE ---
Report received from ENMA Park.
--- NOTE | 2020-06-26 20:37 | ADMIMU ---
This patient, Allison Gong, was admitted to IMU status, and placed in Intensive Care Unit-1 at 2024 on 06/26/21. Patient/family oriented to hospital policies and general routines including ID bracelet, bed and alarms, visiting hours, pain management, procedures, bathroom and other care routines, personal items, smoking policy, room service/diet, and visiting hours. Valuables list has been completed. Information on how to activate the Rapid Response Team has been discussed. Patient/Family are encouraged to report perceived risks to care and to ask questions if they do not understand what they are told or what they should do.
[2020-06-27] VITALS (23 sets, daily range): BP systolic 132–165; BP diastolic 83–91; PULSE 64–87; RESP 13–24; TEMP 36.1–36.9; O2SAT 84–98
--- NOTE | 2020-06-27 00:03 | PM.IMHP ---
H&P: HPI History of Present Illness Date/Time: 06/27/20 00:03 Chief Complaint: Shortness of breath Narrative: 84-year-old female with past medical history significant for chronic hypoxic respiratory failure on supplemental oxygen patient states that she is supposed to have it on at all times however she only were said when she feels short of breath after she has been up and about going about her daily routine, hypertension, peripheral neuropathy, osteoporosis, thoracic aortic aneurysm, migraines headaches, dyslipidemia, a stroke. Patient presented to the emergency room after she has has noticed worsening shortness of breath that started sometime during the night she was not able to go back to sleep she also had cough, sore throat a sputum production that is a yellowish to greenish. Patient denies any chest pain she has not been able to eat due to poor appetite. She denies any leg swelling she denies syncope or near syncope, had chills , rigors , fevers she states that she has been in her usual state of health up until this happened. Preliminary workup was significant for a CT of chest with right lower with bgase infiltrates. Review of Systems Review of Systems: Narrative: Worsening shortness of breath Constitutional: Constitutional: Reports chills, Reports fatigue, Reports fever(s), Reports malaise and Reports poor appetite Eyes: Eyes: Denies change in vision ENT: Denies dizziness, Denies nasal congestion, Denies nasal discharge, Denies post nasal drip and Reports sore throat Cardiovascular: Cardiovascular: Denies chest pain and Denies leg edema Respiratory: Respiratory: Reports change in phlegm color, Reports chest congestion, Reports cough and Reports dyspnea Gastrointestinal: Gastrointestinal: Denies abdominal pain Genitourinary: Genitourinary: Denies dysuria Musculoskeletal: Musculoskeletal: Denies myalgias and Denies arthralgias Integumentary/Breasts: Skin/Breast: Denies rash Neurologic: Denies focal weakness Endocrine: Endocrine: Reports no additional endocrine complaints Hematologic/Lymphatic: Hematologic/Lymphatic: Reports no additional hematologic/lymphatic complaints Allergic/Immunologic: Allergic/Immunologic: Reports no additional allergic/immunologic complaints [facility] Past Medical History Medical History Breast cancer CVA (cerebral vascular accident) cerebellar Depression History of breast cancer lumpectomy and tamoxifen History of kidney stones Hyperlipidemia Hypertension Hypertension Migraines Osteoporosis PFO (patent foramen ovale) Pulmonary emboli the patient stated that she was on Xarelto for Scharff. Time. Right wrist fracture Thoracic aortic aneurysm Surgical History Surgical History H/O cataract extraction bilateral History of appendectomy History of laparoscopic cholecystectomy Status post left breast lumpectomy Status post-operative repair of closed fracture of right hip Family History Family History Father Family history of cardiovascular disease Mother Family history of cardiovascular disease Cancer Sibling Family history of cardiovascular disease Son Murder of stranger Social History Social History Social History: the patient has been recently and has lost her son. She had 7 children prior to that. 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 No alcohol or illicit drugs. She has a modified code she does want to be on the ventilator. Koki Sutton is her daughter who is a durable power trust and estates attorney for healthcare. Smoking status: Never smoker Second hand tobacco smoke exposure: Yes Alcohol intake: former Substance use: never Gender identity (if verbalized by the patient): Female Spiritual care concerns: Ye
[2020-06-27 00:50] LABS: Alveolar/Arterial O2 Gradient 311.8 mmHg; Base Excess ABG -1.2 mEq/l (+/-2.0); Fractional Inspired Oxygen 60 %; HCO3 ABG 21.8 mEq/l (22.0-26.0); Oxygen Content ABG 22.2 %vol (16.0-22.0); Oxygen Saturation ABG 96.4 % (95.0-100.0); Oxyhemoglobin 95.6 % THb (90.0-100.0); PCO2 ABG 32.2 mmHg (35.0-45.0); PO2 ABG 80.6 mmHg (80.0-100.0); PO2 FiO2 Ratio Arterial Blood 1.34 %; Total Hemoglobin 16.5 g/dL (12.0-18.0); pH ABG 7.448 (7.350-7.450)
[2020-06-27 00:51] LABS: Device HIGH FLOW NASAL CANN; Modified Allen's Test Pass; Site Drawn RIGHT RADIAL
[2020-06-27] MEDS: IPRATROPIUM BR 0.02% INH SOLN 0.5 MG/2.5 ML VIAL INHALATION ×4 (02:06→19:56)
[2020-06-27] MEDS: AMITRIPTYLINE HCL 10 MG TABLET PO ×2 (03:53→20:10)
[2020-06-27] MEDS: AZTREONAM 2 GM in DEXTROSE 5% 100 ML 200 ML IVPB ×3 (03:53→18:41)
[2020-06-27 05:51] LABS: Basophils Absolute Auto 0.1 K/mm3 (0.0-0.1); Basophils Percent Auto 0.5 % (0.2-1.2); Eosinophils Absolute Auto 0.3 K/mm3 (0-0.3); Eosinophils Percent Auto 2.2 % (0-4.4); Hematocrit 48.7 % (37.0-47.0); Immature Granulocyte Absolute 0.06 K/mm3 (0.00-0.031); Immature Granulocyte Percent A 0.5 % (0-0.5); Lymphocytes Absolute Auto 2.01 K/mm3 (0.9-3.2); Lymphocytes Percent Auto 16.1 % (18.3-44.2); Mean Corpuscular HGB Conc 32.9 g/dl (32-36); Mean Corpuscular Hemoglobin 30.2 pg (26-34); Mean Corpuscular Volume 91.9 fl (80-100); Mean Platelet Volume 9.2 fl (7.4-10.4); Monocytes Absolute Auto 0.8 K/mm3 (0.1-0.6); Monocytes Percent Auto 6.2 % (2.6-8.5); Neutrophils Absolute Auto 9.3 K/mm3 (1.3-6.7); Neutrophils Percent Auto 74.5 % (45.5-73.1); Platelet Count Result 276 k/mm3 (150-375); Red Cell Distribution Width 14.7 % (11.5-14.5); White Blood Count 12.5 K/mm3 (4.5-10.0)
[2020-06-27 05:55] LABS: Alanine Aminotransferase 24 U/L (4-35); Albumin Level 4.2 g/dL (3.5-5.1); Alkaline Phosphatase 103 U/L (38-126); Anion Gap 8 mmol/L (8-16); Aspartate Amino Transferase 35 U/L (14-36); Bilirubin,Total 1.1 mg/dL (0.2-1.3); Blood Urea Nitrogen 9 mg/dL (7-17); Carbon Dioxide 28 mmol/L (22-30); Chloride 105 mmol/L (98-107); Estimated CRCL calculation 48 ml/min; Estimated Glomerular Filt Rate > 60; Glucose 116 mg/dL (65-105); Potassium 3.1 mmol/L (3.4-5.0); Sodium 141 mmol/L (137-145)
[2020-06-27] MEDS: lisinopriL 20 MG TABLET 40 MG PO (09:24)
[2020-06-27] MEDS: amLODIPine BESYLATE 2.5 MG TABLET PO (09:25)
[2020-06-27] MEDS: ASPIRIN 81 MG ENTERIC TABLET PO (09:25)
[2020-06-27] MEDS: hydroCHLOROthiazide 25 MG TABLET PO (09:26)
[2020-06-27] MEDS: PRAMIPEXOLE 0.25 MG TABLET PO ×2 (09:26→18:42)
[2020-06-27] MEDS: ATORVASTATIN 20 MG TABLET PO (09:26)
[2020-06-27] MEDS: MULTIVITAMINS THERAPEUTIC TAB (*BKC) 1 TABLET PO (09:27)
[2020-06-27] MEDS: VITAMIN B COMPLEX CAPSULE 1 CAP PO (09:28)
[2020-06-27] MEDS: CALCIUM CARBONATE (OSCAL) 500 MG TABLET PO (09:28)
--- NOTE | 2020-06-27 10:17 | PC.NURSE ---
Son. Pearl updated on plan of care for the day.
--- NOTE | 2020-06-27 10:57 | WPDINTPN ---
Progress Note: A&P Assessment and Plan (1) Acute on chronic respiratory failure with hypoxemia: Code(s): J96.21 - Acute and chronic respiratory failure with hypoxia Status: Acute Assessment and Plan: Patient is usually on oxygen at home 2 L by nasal cannula she is supposed to wear continuously however patient uses only after the she gets short of breath after doing her activities of daily living she will wear it on and off. Patient was requiring 10 L high-flow by nasal cannula oxygen and was placed on Bipap overnight Now off of Bipap and saturating adequately on nasal cannula 8 L Up in chair and incentive spirometry (2) Right lower lobe pulmonary infiltrate: Code(s): R91.8 - Other nonspecific abnormal finding of lung field Status: Acute Assessment and Plan: CT IMPRESSION: 1. Minimal airspace opacities of the right lower lobe, consistent with atelectasis versus pneumonia. Continue aztreonam and Zithromax Await cultures Check urine Legionella and strep antigen SARS-CoV-2 PCR sent and results pending although her clinical picture is not consistent with COVID Patient is in Airborne, Droplet and Contact Isolation (3) Idiopathic peripheral neuropathy: Code(s): G60.9 - Hereditary and idiopathic neuropathy, unspecified Status: Acute Assessment and Plan: Continue home meds (4) PFO (patent foramen ovale): Code(s): Q21.1 - Atrial septal defect Status: Chronic Assessment and Plan: Continue Aspirin (5) Hypertension: Code(s): I10 - Essential (primary) hypertension Status: Acute Assessment and Plan: Continue home meds Continue to monitor (6) Restless legs syndrome: Code(s): G25.81 - Restless legs syndrome Status: Acute Assessment and Plan: Continue home meds continue to monitor (7) Thoracic aortic aneurysm: Code(s): I71.2 - Thoracic aortic aneurysm, without rupture Status: Acute Assessment and Plan: Continue to monitor try and keep blood pressure at 130/80 Restart home meds (8) Electrolyte abnormality: Code(s): E87.8 - Other disorders of electrolyte and fluid balance, not elsewhere classified Status: Acute Assessment and Plan: Replace low potassium Additional Plan DVT prophylaxis -start Lovenox Nutrition -advance diet Code Status - Full Code Subjective Date/time seen: 06/27/20 10:57 Patient states her breathing is much better today and she denies feeling shortness of breath at this time. She does continue to have cough which is associated with greenish to whitish sputum. She feels weak but denies any fever. Patient denies chest pain, shortness of breath, nausea vomiting, abdominal pain, diarrhea, headache or constipation. All other systems were reviewed and were negative Review of Systems Review of Systems: All systems reviewed & are unremarkable except as noted in HPI and below (HPI) Exam Narrative: Exam Narrative: General: Pt is alert awake and in NAD Lungs/Chest: Trachea central course BS B/L, No crackles or wheezing. Cardiac: RRR. Normal S1 S2. No murmurs Circulation: Pedal pulses are intact and symmetrical. Abdomen: Normal bowel sounds.. Soft. NT. ND. Extremities: No clubbing, cyanosis or edema. Warm : Julio in place Neurologic: Follows commands. Moves all 4 extremities PERRL Skin: No Rash Objective Data Vital Signs Vital Signs: Vital Signs - 24 hr 06/26/20 13:22 06/26/20 13:43 06/26/20 14:18 Temperature 37.0 C Pulse Rate 102 H 99 Respiratory Rate 20 18 Blood Pressure 163/106 H Pulse Oximetry 90 90 06/26/20 14:26 06/26/20 14:29 06/26/20 15:27 Temperature Pulse Rate 99 109 H 111 H Respiratory Rate 18 18 18 Blood Pressure 145/105 H 145/92 H Pulse Oximetry 89 L 90 06/26/20 16:19 06/26/20 16:51 06/26/20 17:27 Temperature Pulse Rate 116 H 113 H 107 H Respiratory Rate 16 20 20 Blood Pressure 173/101 H 158/103 H Pul
[2020-06-27] MEDS: POTASSIUM CHLORIDE 20 MEQ TABLET 40 MEQ PO (12:44)
[2020-06-27] MEDS: ENOXAPARIN 40 MG/0.4 ML SYRINGE SUB-Q (12:44)
--- NOTE | 2020-06-27 13:49 | PM.CNPUL ---
Assessment and Plan Assessment and plan (1) Acute bronchitis: Code(s): J20.9 - Acute bronchitis, unspecified Status: Acute Assessment and Plan: I see no evidence of pneumonia but she does have signs and symptoms of acute bronchitis and this is what likely exacerbated the chronic hypoxemic respiratory failure with PFO and led to acute hypoxemia. Her CT scan is fairly clear. I recommend treatment with antibiotics covering for community-acquired bacteria. Of course COVID PCR is still pending and should rule out COVID. (2) Acute respiratory failure with hypoxemia: Code(s): J96.01 - Acute respiratory failure with hypoxia Status: Acute (3) PFO (patent foramen ovale): Code(s): Q21.1 - Atrial septal defect Status: Chronic History of Present Illness History of Present Illness Consult date: 06/27/20 Chief complaint: pneumonia, oxygen dependent Narrative: This is an 84-year-old female well known to me with a history of PFO with chronic hypoxemia and polycythemia. She presents after a 1-2 day history of cough productive of thick sputum that began suddenly. She denied sore throat, runny nose, loss of taste or smell, diarrhea or fever chills or night sweats. She did have some vomiting with the coughing but no nausea. She was significantly [place] [id number] [place] left shift. Although a chest x-ray suggested a basilar infiltrate she underwent a CT scan which showed no evidence of pneumonia or other parenchymal infiltrates. Today she has been weaned down from 15 L to about 7.5 L satting around 95% and her cough has improved with antibiotic therapy. Her COVID PCR test is currently pending. She has received 2 doses of med during a vaccine and her 2nd dose was in April of 2020. Review of Systems Review of Systems: All systems reviewed & are unremarkable except as noted in HPI and below PMFSH Past Medical History Medical History Breast cancer CVA (cerebral vascular accident) cerebellar Depression History of breast cancer lumpectomy and tamoxifen History of kidney stones Hyperlipidemia Hypertension Hypertension Migraines Osteoporosis PFO (patent foramen ovale) Pulmonary emboli the patient stated that she was on Xarelto for Scharff. Time. Right wrist fracture Thoracic aortic aneurysm Surgical History Surgical History H/O cataract extraction bilateral History of appendectomy History of laparoscopic cholecystectomy Status post left breast lumpectomy Status post-operative repair of closed fracture of right hip Family History Family History Father Family history of cardiovascular disease Mother Family history of cardiovascular disease Cancer Sibling Family history of cardiovascular disease Son Murder of stranger Social History Social History Social History: the patient has been recently and has lost her son. She had 7 children prior to that. 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 No alcohol or illicit drugs. She has a modified code she does want to be on the ventilator. Koki Sutton is her daughter who is a durable power state's attorney for healthcare. Smoking status: Never smoker Second hand tobacco smoke exposure: Yes Alcohol intake: former Substance use: never Gender identity (if verbalized by the patient): Female Spiritual care concerns: Yes (Nondenominational) Meds Home Medications and Allergies Home Medications Medication Instructions Recorded Confirmed Type aspirin 81 mg tablet,delayed 81 mg PO DAILY 01/27/19 06/26/20 History release calcium carbonate 600 mg calcium 600 mg PO QAM 01/27/19 06/26/20 History (1,500 mg) tablet docusate sodium 50 mg capsule 50
[2020-06-27] MEDS: POTASSIUM CHLORIDE 20 MEQ PACKET (FOR LIQUID) 40 MEQ PO (18:41)
[2020-06-27] MEDS: DOCUSATE SODIUM LIQ 100 MG/10 ML UDC 50 MG PO (18:42)
[2020-06-27 20:06] LABS: SARS-CoV-2 RNA PCR Negative
[2020-06-27] MEDS: MELATONIN 5 MG TABLET PO (20:10)
[2020-06-28] VITALS (22 sets, daily range): BP systolic 111–150; BP diastolic 81–93; PULSE 50–92; RESP 14–22; TEMP 36–36.8; O2SAT 83–98
[2020-06-28] MEDS: IPRATROPIUM BR 0.02% INH SOLN 0.5 MG/2.5 ML VIAL INHALATION ×4 (01:33→19:42)
[2020-06-28] MEDS: AZTREONAM 2 GM in DEXTROSE 5% 100 ML 200 ML IVPB ×3 (01:55→17:19)
[2020-06-28 04:46] LABS: Hematocrit 47.3 % (37.0-47.0); Hemoglobin 15.6 g/dL (12.0-15.0); Mean Corpuscular Hemoglobin 30.1 pg (26-34); Mean Corpuscular Volume 91.3 fl (80-100); Mean Platelet Volume 9.2 fl (7.4-10.4); Platelet Count Result 266 k/mm3 (150-375); Red Blood Count 5.18 M/mm3 (4.2-5.4); Red Cell Distribution Width 14.8 % (11.5-14.5); White Blood Count 11.7 K/mm3 (4.5-10.0)
[2020-06-28 05:16] LABS: Anion Gap 5 mmol/L (8-16); Blood Urea Nitrogen 12 mg/dL (7-17); Calcium 10.3 mg/dL (8.4-10.2); Carbon Dioxide 28 mmol/L (22-30); Chloride 104 mmol/L (98-107); Estimated CRCL calculation 48 ml/min; Estimated Glomerular Filt Rate > 60; Glucose 125 mg/dL (65-105); Magnesium 2.3 mg/dL (1.6-2.3); Sodium 137 mmol/L (137-145)
[2020-06-28] MEDS: amLODIPine BESYLATE 2.5 MG TABLET PO (08:05)
[2020-06-28] MEDS: ATORVASTATIN 20 MG TABLET PO (08:05)
[2020-06-28] MEDS: ASPIRIN 81 MG ENTERIC TABLET PO (08:05)
[2020-06-28] MEDS: CALCIUM CARBONATE (OSCAL) 500 MG TABLET PO (08:05)
[2020-06-28] MEDS: PRAMIPEXOLE 0.25 MG TABLET PO ×2 (08:05→17:19)
[2020-06-28] MEDS: ENOXAPARIN 40 MG/0.4 ML SYRINGE SUB-Q (08:05)
[2020-06-28] MEDS: VITAMIN B COMPLEX CAPSULE 1 CAP PO (08:06)
[2020-06-28] MEDS: hydroCHLOROthiazide 25 MG TABLET PO (08:06)
[2020-06-28] MEDS: MULTIVITAMINS THERAPEUTIC TAB (*BKC) 1 TABLET PO (08:06)
[2020-06-28] MEDS: lisinopriL 20 MG TABLET 40 MG PO (08:06)
--- NOTE | 2020-06-28 11:47 | PC.NURSE ---
This patient, Allison Gong, was received from [ ICU] on 06/28/20 at 1148. Patient/family oriented to unit policies and routines
--- NOTE | 2020-06-28 12:38 | PC.NURSE ---
This patient, Allison Gong, was transferred to [ ] on 06/28/20 at 1142. Personal belongings sent with patient. Report given to [Lilian NORWOOD ]. Appropriate documentation sent with patient.
--- NOTE | 2020-06-28 17:02 | PM.IMPN ---
Progress Note: A&P Assessment and Plan (1) Acute on chronic respiratory failure with hypoxemia: Code(s): J96.21 - Acute and chronic respiratory failure with hypoxia Status: Acute Assessment and Plan: Patient is usually on oxygen at home 2 L by nasal cannula she is supposed to wear continuously however patient uses only after the she gets short of breath after doing her activities of daily living she will wear it on and off. Patient was requiring 10 L high-flow by nasal cannula oxygen Decided to place on BiPAP continues overnight Try and keep oxygen saturation at 88 at % or above patient's baseline is 88% Patient is feeling much better. Will continue current treatment transfer to medical floor. (2) Right lower lobe pulmonary infiltrate: Code(s): R91.8 - Other nonspecific abnormal finding of lung field Status: Acute Assessment and Plan: Patient has allergy to penicillins Is started on aztreonam and Zithromax Await cultures Deescalate antibiotics as needed (3) Idiopathic peripheral neuropathy: Code(s): G60.9 - Hereditary and idiopathic neuropathy, unspecified Status: Acute Assessment and Plan: Continue home meds (4) PFO (patent foramen ovale): Code(s): Q21.1 - Atrial septal defect Status: Chronic Assessment and Plan: No murmurs auscultated at physical exam Continue to monitor (5) Hypertension: Code(s): I10 - Essential (primary) hypertension Status: Acute Assessment and Plan: Continue home meds Continue to monitor (6) Restless legs syndrome: Code(s): G25.81 - Restless legs syndrome Status: Acute Assessment and Plan: Continue home meds continue to monitor (7) Thoracic aortic aneurysm: Code(s): I71.2 - Thoracic aortic aneurysm, without rupture Status: Acute Assessment and Plan: Continue to monitor try and keep blood pressure at 130/80 Restart home meds Additional Plan Will continue with current plan of care and treatment. Monitor oxygen. Monitor CBC. Will also order urine culture, Urine was slightly cloudy. Subjective Date/time seen: 06/28/20 17:02 Patient was seen during the rounds today. Patient is feeling much better. Decreased shortness of breath, no chest pain. No nausea vomiting or diarrhea. Mood stable. Review of Systems Constitutional: Constitutional: Reports chills, Reports fatigue, Reports fever(s), Reports malaise and Reports poor appetite Eyes: Eyes: Denies change in vision ENT: Denies dizziness, Denies nasal congestion, Denies nasal discharge, Denies post nasal drip and Reports sore throat Cardiovascular: Cardiovascular: Denies chest pain, Denies leg edema and Reports dyspnea Respiratory: Respiratory: Reports change in phlegm color, Reports chest congestion, Reports cough and Reports dyspnea Gastrointestinal: Gastrointestinal: Denies abdominal pain Genitourinary: Genitourinary: Denies dysuria Musculoskeletal: Musculoskeletal: Denies myalgias and Denies arthralgias Integumentary/Breasts: Skin/Breast: Denies rash Neurologic: Denies dizziness and Denies focal weakness Endocrine: Endocrine: Reports no additional endocrine complaints and Reports fatigue Hematologic/Lymphatic: Hematologic/Lymphatic: Reports no additional hematologic/lymphatic complaints Allergic/Immunologic: Allergic/Immunologic: Reports no additional allergic/immunologic complaints Exam Narrative: Exam Narrative: Patient is laying in bed she is on oxygen 2 L by nasal cannula. Const: General: comfortable, no acute distress, well developed, alert and awake Nutritional Appearance: average body habitus Orientation/consciousness: patient oriented x3 HENMT: Head: normal to inspection, normocephalic and atraumatic Ears: hearing grossly normal bilaterally Face and sinus: normal facial exam Eyes: General: appearance normal, both eyes and all related structures Pupils: Equal, round and reacti
[2020-06-28] MEDS: DOCUSATE SODIUM LIQ 100 MG/10 ML UDC 50 MG PO (17:19)
[2020-06-28] MEDS: MELATONIN 5 MG TABLET PO (19:59)
[2020-06-28] MEDS: AMITRIPTYLINE HCL 10 MG TABLET PO (19:59)
[2020-06-28 22:31] LABS: Pneumococcal Antigen Urine Not Detected (Not Detected)
[2020-06-29] VITALS (24 sets, daily range): BP systolic 105–136; BP diastolic 70–85; PULSE 67–92; RESP 18–24; TEMP 36.2–36.6; O2SAT 81–91
[2020-06-29] MEDS: AZTREONAM 2 GM in DEXTROSE 5% 100 ML 200 ML IVPB ×2 (00:59→09:06)
[2020-06-29] MEDS: IPRATROPIUM BR 0.02% INH SOLN 0.5 MG/2.5 ML VIAL INHALATION ×4 (01:49→21:00)
[2020-06-29 06:26] LABS: Hematocrit 45.6 % (37.0-47.0); Hemoglobin 15.1 g/dL (12.0-15.0); Mean Corpuscular HGB Conc 33.1 g/dl (32-36); Mean Corpuscular Hemoglobin 29.9 pg (26-34); Mean Corpuscular Volume 90.3 fl (80-100); Mean Platelet Volume 9.2 fl (7.4-10.4); Platelet Count Result 296 k/mm3 (150-375); Red Blood Count 5.05 M/mm3 (4.2-5.4); Red Cell Distribution Width 14.8 % (11.5-14.5); White Blood Count 11.2 K/mm3 (4.5-10.0)
--- NOTE | 2020-06-29 06:48 | PM.IMPN ---
Progress Note: A&P Assessment and Plan (1) Acute on chronic respiratory failure with hypoxemia: Code(s): J96.21 - Acute and chronic respiratory failure with hypoxia Status: Acute Assessment and Plan: Patient is usually on oxygen at home 2 L by nasal cannula she is supposed to wear continuously however patient uses only after the she gets short of breath after doing her activities of daily living she will wear it on and off. Patient was requiring 10 L high-flow by nasal cannula oxygen Decided to place on BiPAP continues overnight Try and keep oxygen saturation at 88 at % or above patient's baseline is 88% Patient is feeling much better. Will continue current treatment. Increase activity. Repeat x-ray. Possible discharge in the morning. (2) Right lower lobe pulmonary infiltrate: Code(s): R91.8 - Other nonspecific abnormal finding of lung field Status: Acute Assessment and Plan: Patient has allergy to penicillins Is started on aztreonam and Zithromax Await cultures Continue antibiotics. possible discharge in the morning. (3) Idiopathic peripheral neuropathy: Code(s): G60.9 - Hereditary and idiopathic neuropathy, unspecified Status: Acute Assessment and Plan: Continue home meds (4) PFO (patent foramen ovale): Code(s): Q21.1 - Atrial septal defect Status: Chronic Assessment and Plan: No murmurs auscultated at physical exam Continue to monitor (5) Hypertension: Code(s): I10 - Essential (primary) hypertension Status: Acute Assessment and Plan: Continue home meds Continue to monitor (6) Restless legs syndrome: Code(s): G25.81 - Restless legs syndrome Status: Acute Assessment and Plan: Continue home meds continue to monitor (7) Thoracic aortic aneurysm: Code(s): I71.2 - Thoracic aortic aneurysm, without rupture Status: Acute Assessment and Plan: Continue to monitor try and keep blood pressure at 130/80 Restart home meds Additional Plan Will continue with current plan of care and treatment. Monitor oxygen. Monitor CBC. Will also order urine culture, Urine was slightly cloudy. Check cultures. Repeat chest x-ray. Increase activity. Possible discharge in the morning. Subjective Date/time seen: 06/29/20 06:48 Patient was seen during the morning rounds today. Feeling slightly better. Decreased shortness of breath. No chest pain. No nausea or vomiting. Mood stable. Review of Systems Review of Systems: All systems reviewed & are unremarkable except as noted in HPI and below ( the history and physical exam) Constitutional: Constitutional: Reports chills, Reports fatigue, Reports fever(s), Reports malaise and Reports poor appetite Eyes: Eyes: Denies change in vision ENT: Denies dizziness, Denies nasal congestion, Denies nasal discharge, Denies post nasal drip and Reports sore throat Cardiovascular: Cardiovascular: Denies chest pain, Denies leg edema and Reports dyspnea Respiratory: Respiratory: Reports change in phlegm color, Reports chest congestion, Reports cough and Reports dyspnea Gastrointestinal: Gastrointestinal: Denies abdominal pain Genitourinary: Genitourinary: Denies dysuria Musculoskeletal: Musculoskeletal: Denies myalgias and Denies arthralgias Integumentary/Breasts: Skin/Breast: Denies rash Neurologic: Denies dizziness and Denies focal weakness Endocrine: Endocrine: Reports no additional endocrine complaints and Reports fatigue Hematologic/Lymphatic: Hematologic/Lymphatic: Reports no additional hematologic/lymphatic complaints Allergic/Immunologic: Allergic/Immunologic: Reports no additional allergic/immunologic complaints Exam Narrative: Exam Narrative: Patient is laying in bed she is on oxygen 2 L by nasal cannula. Const: General: comfortable, no acute distress, well developed, alert and awake Nutritional Appearance: average body habitus [place]
[2020-06-29 06:52] LABS: Anion Gap 5 mmol/L (8-16); Blood Urea Nitrogen 11 mg/dL (7-17); Calcium 10.6 mg/dL (8.4-10.2); Carbon Dioxide 28 mmol/L (22-30); Chloride 103 mmol/L (98-107); Estimated CRCL calculation 66 ml/min; Estimated Glomerular Filt Rate > 60; Glucose 102 mg/dL (65-105); Magnesium 2.1 mg/dL (1.6-2.3); Potassium 3.7 mmol/L (3.4-5.0); Sodium 136 mmol/L (137-145)
[2020-06-29] MEDS: CALCIUM CARBONATE (OSCAL) 500 MG TABLET PO (08:31)
[2020-06-29] MEDS: PRAMIPEXOLE 0.25 MG TABLET PO ×2 (08:31→18:22)
[2020-06-29] MEDS: amLODIPine BESYLATE 2.5 MG TABLET PO (08:31)
[2020-06-29] MEDS: MULTIVITAMINS THERAPEUTIC TAB (*BKC) 1 TABLET PO (08:31)
[2020-06-29] MEDS: ASPIRIN 81 MG ENTERIC TABLET PO (08:31)
[2020-06-29] MEDS: VITAMIN B COMPLEX CAPSULE 1 CAP PO (08:31)
[2020-06-29] MEDS: ENOXAPARIN 40 MG/0.4 ML SYRINGE SUB-Q ×2 (08:31→22:02)
[2020-06-29] MEDS: ATORVASTATIN 20 MG TABLET PO (08:31)
[2020-06-29] MEDS: hydroCHLOROthiazide 25 MG TABLET PO (08:31)
[2020-06-29] MEDS: lisinopriL 20 MG TABLET 40 MG PO (08:31)
--- NOTE | 2020-06-29 10:01 | P.CDI_ITS ---
CDI Query Clarification Request -Right lower lobe pulmonary infiltrate and Is started on aztreonam and Zithromax has been documented -06/29 CXR impression:Unchanged patchy right basilar atelectasis and/or pneumonia. Please clarify if there is a possible corresponding diagnosis for above Xray findings of right lower lobe pulmonary infiltrate. * Atelectasis * Pneumonia * Other * Unable to determine
[2020-06-29 10:43] LABS: Legionella pneumophila Ag Ur Not Detected (Not Detected)
[2020-06-29 11:18] LABS: Alveolar/Arterial O2 Gradient 441.6 mmHg; Base Excess ABG 1.5 mEq/l (+/-2.0); Carboxyhemoglobin 0.1 % THb (0-2.0); Fractional Inspired Oxygen 72 %; HCO3 ABG 24.1 mEq/l (22.0-26.0); Methemoglobin ABG 0.3 %THb (0-1.5); Oxygen Content ABG 17.9 %vol (16.0-22.0); Oxyhemoglobin 76.8 % THb (90.0-100.0); PO2 FiO2 Ratio Arterial Blood 0.51 %; Reduced Hemoglobin 22.8 %THb (0-5.0); Total Hemoglobin 16.7 g/dL (12.0-18.0); pH ABG 7.482 (7.350-7.450)
[2020-06-29 11:20] LABS: Device HIGH FLOW NASAL CANN; Oxygen Saturation ABG 74.8 % (95.0-100.0); PO2 ABG 36.5 mmHg (80.0-100.0); Site Drawn LEFT BRACHIAL
--- NOTE | 2020-06-29 13:03 | PM.PNPUL ---
Progress Note: A&P Assessment and Plan (1) Acute respiratory failure with hypoxemia: Code(s): J96.01 - Acute respiratory failure with hypoxia Status: Acute (2) Acute bronchitis: Code(s): J20.9 - Acute bronchitis, unspecified Status: Acute Assessment and Plan: Does not need broad-spectrum antibiotics. I will switch her to Levaquin 500 mg daily for an additional 5 days. (3) PFO (patent foramen ovale): Code(s): Q21.1 - Atrial septal defect Status: Chronic Assessment and Plan: She has presence of shunt physiology with increasing hypoxemia but no obvious lung parenchymal causes and no suspicion of pulmonary embolism. This is very difficult to treat. Laying down versus sitting up may help also will try a dose of Lasix to see if we can decrease the right atrial pressure a bit which may help as well. Otherwise continue high-flow oxygen to maintain O2 saturations at 85% or above. Subjective Date/time seen: 06/29/20 13:03 Interval history: She feels well today and in fact tells me that she feels much better than when she came in. She still has a productive cough Which is getting better. She continues to be hypoxic and I suspect that this is due to her underlying PFO with [id number] shunting that is currently exacerbated. Her CT scan is unimpressive for pneumonia and I do not suspect pulmonary embolism. Review of Systems Review of Systems: All systems reviewed & are unremarkable except as noted in HPI and below Exam Const: General: comfortable, no acute distress, well developed, alert and awake Nutritional Appearance: average body habitus Orientation/consciousness: patient oriented x3 HENMT: Head: normal to inspection, normocephalic and atraumatic Ears: hearing grossly normal bilaterally Face and sinus: normal facial exam Eyes: General: appearance normal, both eyes and all related structures Pupils: Equal, round and reactive pupils present EOM: EOMs intact bilaterally Neck: Neck: full ROM, no lymphadenopathy and no JVD Thyroid: thyroid normal Lymphatic: no lymphadenopathy noted Resp: Effort & Inspection: normal respiratory effort and able to speak in complete sentences Auscultation: clear to auscultation bilaterally Cardio: Jugular venous distension: no JVD Rate: regular rate Rhythm: regular rhythm Heart sounds: S1 normal heart sound present and S2 normal heart sound present : General: Yes deferred Skin: Rashes: no rashes Wounds: no wounds Neuro: General: patient oriented x3 and CN's II-XI intact bilaterally Cranial nerves: Yes CN's II-XII intact bilaterally and Yes Equal, round and reactive pupils present Cognition (Neuro): normal cognition Speech: normal speech Gait exam (Neuro): Normal gait present Motor exam (neuro): 5/5 motor strength present throughout Extrem: General: normal to inspection, full ROM, no joint enlargement and no pedal edema Objective Data Vital Signs Vital Signs: Vital Signs - 24 hr 06/28/20 13:42 06/28/20 13:44 06/28/20 13:50 Temperature Pulse Rate 92 82 Respiratory Rate 20 20 Blood Pressure Pulse Oximetry 93 06/28/20 14:00 06/28/20 16:00 06/28/20 19:45 Temperature 36.6 C Pulse Rate 86 85 78 Respiratory Rate 20 20 Blood Pressure 118/81 Pulse Oximetry 91 90 06/28/20 19:52 06/28/20 20:00 06/28/20 22:00 Temperature 36.3 C L Pulse Rate 79 78 88 Respiratory Rate 20 20 Blood Pressure 143/90 H Pulse Oximetry 93 89 L 06/29/20 00:00 06/29/20 01:50 06/29/20 02:00 Temperature Pulse Rate 78 74 72 Respiratory Rate 20 20 Blood Pressure Pulse Oximetry 06/29/20 03:15 06/29/20 04:00 06/29/20 06:00 Temperature 36.6 C Pulse Rate 74 67 Respiratory Rate 22 H Blood Pressure 122/75 Pulse Oximetry 87 L 90 06/29/20 07:45 06/29/20 07:47 06/29/20 07:48 Temperature Pulse Rate 71 Respiratory Rate 20 Blood Pressure Pulse Oximetry 87 L 90 06/29/20 08:00
[2020-06-29] MEDS: FUROSEMIDE INJ 40 MG/4 ML VIAL 20 MG IV PUSH (13:40)
--- NOTE | 2020-06-29 13:45 | PC.NURSE ---
This patient, Allison Gong, was received from [ [facility] [place] ] on 06/29/20 at 1330. Patient/family oriented to unit policies and routines
[2020-06-29] MEDS: levoFLOXacin 500 MG/D5W 100 ML 500 MG/100 ML BAG 100 MG IVPB (15:52)
[2020-06-29] MEDS: DOCUSATE SODIUM LIQ 100 MG/10 ML UDC 50 MG PO (18:22)
[2020-06-29] MEDS: AMITRIPTYLINE HCL 10 MG TABLET PO (22:02)
[2020-06-29] MEDS: MELATONIN 5 MG TABLET PO (22:03)
[2020-06-30] VITALS (26 sets, daily range): BP systolic 101–144; BP diastolic 66–82; PULSE 68–90; RESP 17–24; TEMP 36.2–37.1; O2SAT 78–90
[2020-06-30] MEDS: CALCIUM CARBONATE (TUMS) 500 MG (200 MG ELEMENTAL) PO (00:36)
[2020-06-30] MEDS: IPRATROPIUM BR 0.02% INH SOLN 0.5 MG/2.5 ML VIAL INHALATION ×4 (02:33→20:33)
[2020-06-30 05:08] LABS: Hemoglobin 15.7 g/dL (12.0-15.0); Mean Corpuscular HGB Conc 33.4 g/dl (32-36); Mean Corpuscular Hemoglobin 30.4 pg (26-34); Mean Corpuscular Volume 90.9 fl (80-100); Mean Platelet Volume 9.2 fl (7.4-10.4); Platelet Count Result 281 k/mm3 (150-375); Red Blood Count 5.17 M/mm3 (4.2-5.4); Red Cell Distribution Width 14.6 % (11.5-14.5); White Blood Count 11.8 K/mm3 (4.5-10.0)
[2020-06-30 05:23] LABS: Anion Gap 6 mmol/L (8-16); Blood Urea Nitrogen 14 mg/dL (7-17); Calcium 11.3 mg/dL (8.4-10.2); Carbon Dioxide 28 mmol/L (22-30); Chloride 99 mmol/L (98-107); Estimated CRCL calculation 57 ml/min; Estimated Glomerular Filt Rate > 60; Glucose 111 mg/dL (65-105); Magnesium 1.8 mg/dL (1.6-2.3); Potassium 3.4 mmol/L (3.4-5.0); Sodium 133 mmol/L (137-145)
[2020-06-30] MEDS: lisinopriL 20 MG TABLET 40 MG PO (09:02)
[2020-06-30] MEDS: hydroCHLOROthiazide 25 MG TABLET PO (09:02)
[2020-06-30] MEDS: ASPIRIN 81 MG ENTERIC TABLET PO (09:02)
[2020-06-30] MEDS: PRAMIPEXOLE 0.25 MG TABLET PO ×2 (09:02→19:33)
[2020-06-30] MEDS: ATORVASTATIN 20 MG TABLET PO (09:02)
[2020-06-30] MEDS: VITAMIN B COMPLEX CAPSULE 1 CAP PO (09:03)
[2020-06-30] MEDS: ENOXAPARIN 40 MG/0.4 ML SYRINGE SUB-Q (09:03)
[2020-06-30] MEDS: amLODIPine BESYLATE 2.5 MG TABLET PO (09:03)
[2020-06-30] MEDS: CALCIUM CARBONATE (OSCAL) 500 MG TABLET PO (09:03)
[2020-06-30] MEDS: MULTIVITAMINS THERAPEUTIC TAB (*BKC) 1 TABLET PO (09:03)
[2020-06-30] MEDS: levoFLOXacin 500 MG/D5W 100 ML 500 MG/100 ML BAG 100 MG IVPB (09:03)
[2020-06-30] MEDS: ENOXAPARIN 60 MG/0.6 ML SYRINGE 55 MG SUB-Q (10:16)
--- NOTE | 2020-06-30 11:14 | PCPTNOTE ---
Attempted PT evsondra. Deepika RN stated to hold therapy due to O2 issues. Will follow.
--- NOTE | 2020-06-30 11:24 | PCOTNOTE ---
Attempted OT evaluation, but unable to complete at this time. ENMA Poe recommended to hold on therapy evaluation at this time due to low oxygen levels. RN to call MD. Will continue to follow.
[2020-06-30] MEDS: MAG HYDROX/AL HYDROX/SIMETH 30 ML UDC PO (12:57)
[2020-06-30] MEDS: PANTOPRAZOLE SODIUM IV 40 MG VIAL IV PUSH (13:58)
[2020-06-30] MEDS: guaiFENesin 12 HR 600 MG TABCR 1200 MG PO ×2 (13:59→21:41)
--- NOTE | 2020-06-30 16:27 | PM.IMPN ---
Progress Note: A&P Assessment and Plan (1) Acute on chronic respiratory failure with hypoxemia: Code(s): J96.21 - Acute and chronic respiratory failure with hypoxia Status: Acute Assessment and Plan: Patient is usually on oxygen at home 2 L by nasal cannula she is supposed to wear continuously however patient uses only after the she gets short of breath after doing her activities of daily living she will wear it on and off. Patient was requiring 10 L high-flow by nasal cannula oxygen Decided to place on BiPAP continues overnight Try and keep oxygen saturation at 88 at % or above patient's baseline is 88% Patient is feeling much better. Will continue current treatment. Increase activity. Repeat x-ray presence of shunt physiology with increasing hypoxemia, no PE (2) Right lower lobe pulmonary infiltrate: Code(s): R91.8 - Other nonspecific abnormal finding of lung field Status: Acute Assessment and Plan: Patient has allergy to penicillins Is started on aztreonam and Zithromax Await cultures Continue antibiotics. swtihced to levaquin. (3) Idiopathic peripheral neuropathy: Code(s): G60.9 - Hereditary and idiopathic neuropathy, unspecified Status: Acute Assessment and Plan: Continue home meds (4) PFO (patent foramen ovale): Code(s): Q21.1 - Atrial septal defect Status: Chronic Assessment and Plan: No murmurs auscultated at physical exam Continue to monitor will get echo. echo from 08/2019 reveiwed. had an ASD workup (5) Hypertension: Code(s): I10 - Essential (primary) hypertension Status: Acute Assessment and Plan: Continue home meds Continue to monitor (6) Restless legs syndrome: Code(s): G25.81 - Restless legs syndrome Status: Acute Assessment and Plan: Continue home meds continue to monitor (7) Thoracic aortic aneurysm: Code(s): I71.2 - Thoracic aortic aneurysm, without rupture Status: Acute Assessment and Plan: Continue to monitor try and keep blood pressure at 130/80 Restart home meds (8) Enterococcus UTI: Code(s): N39.0 - Urinary tract infection, site not specified; B95.2 - Enterococcus as the cause of diseases classified elsewhere Status: Acute Assessment and Plan: add nitrofurantoin Additional Plan Subjective Date/time seen: 06/30/20 16:27 Interval history: She feels about the same, she is on high larry xogyen. oxygenatin has been the same, low to mid 80s. she is feeling better than when she came in. cough persist, sshe has undelrign PFO with right to left shunting Review of Systems Review of Systems: All systems reviewed & are unremarkable except as noted in HPI and below ( the history and physical exam) Constitutional: Constitutional: Reports chills, Reports fatigue, Reports fever(s), Reports malaise and Reports poor appetite Eyes: Eyes: Denies change in vision ENT: Denies dizziness, Denies nasal congestion, Denies nasal discharge, Denies post nasal drip and Reports sore throat Cardiovascular: Cardiovascular: Denies chest pain, Denies leg edema and Reports dyspnea Respiratory: Respiratory: Reports change in phlegm color, Reports chest congestion, Reports cough and Reports dyspnea Gastrointestinal: Gastrointestinal: Denies abdominal pain Genitourinary: Genitourinary: Denies dysuria Musculoskeletal: Musculoskeletal: Denies myalgias and Denies arthralgias Integumentary/Breasts: Skin/Breast: Denies rash Neurologic: Denies dizziness and Denies focal weakness Endocrine: Endocrine: Reports no additional endocrine complaints and Reports fatigue Hematologic/Lymphatic: Hematologic/Lymphatic: Reports no additional hematologic/lymphatic complaints Allergic/Immunologic: Allergic/Immunologic: Reports no additional allergic/immunologic complaints Exam Narrative: Exam Narrative: GENERAL: The patient is well developed, not in acute distress, hyp
[2020-06-30] MEDS: DOCUSATE SODIUM LIQ 100 MG/10 ML UDC 50 MG PO (19:33)
[2020-06-30] MEDS: predniSONE 40 MG, predniSONE 10 MG 50 MG PO (21:42)
[2020-06-30] MEDS: AMITRIPTYLINE HCL 10 MG TABLET PO (21:42)
[2020-06-30] MEDS: NITROFURANTOIN MONOHYD MACROCR 100 MG CAP PO (21:42)
[2020-06-30] MEDS: MELATONIN 5 MG TABLET PO (21:42)
[2020-06-30] MEDS: ENOXAPARIN 100 MG/ML SYRINGE 95 MG SUB-Q (21:43)
[2020-07-01] VITALS (23 sets, daily range): BP systolic 101–133; BP diastolic 61–91; PULSE 63–98; RESP 16–20; TEMP 36–36.7; O2SAT 78–90
--- NOTE | 2020-07-01 | ECHO_ITS ---
Patient Info Name: Allison Gong Age: 84 years : 1935 Gender: Female Ht: 62 in Wt: 213 lbs BSA: 2.11 m2 HR: 98 bpm BP: 126 / 86 mmHg Heart Rhythm: Atrial Fibrillation Technical Quality: Good Exam Date: 07/01/2020 11:36 AM Exam Location: [facility] Pulmonary Exam Room: 212 Patient Status: Inpatient Admit Date: 06/27/2020 Staff Ordering Physician: Seferino Josue MD Correction Officer: Светлана Perez RDCS Attending Provider: Seferino Josue MD Exam Type: CA echo doppler color flow Study Info Indications - ASD S/P CLOSURE Complete two-dimensional, color flow and Doppler transthoracic echocardiogram is performed. Summary 1. Complete two-dimensional, color flow and Doppler transthoracic echocardiogram is performed. 2. Left ventricular systolic function is hyperdynamic, estimated at >70%. 3. Atrial septal occluder device is noted. 4. Mildly sclerotic aortic valve otherwise no significant valvular lesions. 5. Compared to exam from August of 2019 no significant change, saline contrast not injected during today's exam. Left Ventricle Left ventricular chamber dimension is normal. Left ventricular systolic function is hyperdynamic, estimated at >70%. The left ventricular diastolic function is grade I diastolic dysfunction. Right Ventricle Right ventricular chamber dimension is normal. Left Atria Left atrial chamber dimension is mildly enlarged. Right Atria Right atrial chamber dimension is mildly enlarged. Atrial Septum Atrial septal occluder device is noted. Aortic Valve The aortic valve is not well visualized. There is mild aortic valve sclerosis. There is trace aortic valve regurgitation. Pulmonic Valve The pulmonic valve is not well visualized. Mitral Valve The mitral valve has normal leaflets. Tricuspid Valve The tricuspid valve leaflets are normal. Pericardium/Pleural The pericardium appears normal. Aorta The aortic root size at the sinus of Valsalva is normal. Left Ventricular Outflow Tract Name Value Normal LVOT 2D LVOT Diameter 2.0 cm LVOT Doppler LVOT Peak Gradient 6 mmHg LVOT Mean Gradient 3 mmHg LVOT VTI 17 cm LVOT VTI/AV VTI Ratio 0.8 LVOT Stroke Volume 52 ml LVOT CO 14.4 l/min LVOT CI 6.8 l/min/m2 Pulmonic Valve Name Value Normal PV Doppler PV Peak Gradient 2 mmHg Mitral Valve Name Value Normal MV Doppler MV Decel [place]
[2020-07-01] MEDS: predniSONE 40 MG, predniSONE 10 MG 50 MG PO ×2 (02:01→08:50)
[2020-07-01] MEDS: IPRATROPIUM BR 0.02% INH SOLN 0.5 MG/2.5 ML VIAL INHALATION ×4 (02:49→20:37)
[2020-07-01 05:46] LABS: Hematocrit 47.3 % (37.0-47.0); Mean Corpuscular HGB Conc 33.8 g/dl (32-36); Mean Corpuscular Hemoglobin 29.9 pg (26-34); Mean Corpuscular Volume 88.2 fl (80-100); Mean Platelet Volume 9.3 fl (7.4-10.4); Platelet Count Result 318 k/mm3 (150-375); Red Blood Count 5.36 M/mm3 (4.2-5.4); Red Cell Distribution Width 14.2 % (11.5-14.5)
[2020-07-01 06:18] LABS: Anion Gap 7 mmol/L (8-16); Blood Urea Nitrogen 17 mg/dL (7-17); Calcium 10.9 mg/dL (8.4-10.2); Carbon Dioxide 27 mmol/L (22-30); Chloride 95 mmol/L (98-107); Estimated CRCL calculation 48 ml/min; Estimated Glomerular Filt Rate > 60; Glucose 170 mg/dL (65-105); Magnesium 1.9 mg/dL (1.6-2.3); Potassium 3.4 mmol/L (3.4-5.0); Sodium 129 mmol/L (137-145)
[2020-07-01] MEDS: diphenhydrAMINE HCl CAP 25 MG CAPSULE 50 MG PO (08:50)
[2020-07-01 08:54] LABS: Add Urine Microscopic? YES; Appearance Urine Cloudy (Clear); Bacteria Urine 3+ /hpf; Bilirubin Urine Negative (Negative); Blood Urine Negative (Negative); Color Urine Yellow (Yellow); Glucose Urine UA Negative (Negative); Ketones Urine Negative (Negative); Leukocyte Esterase Ur 2+ LEU/UL (NEGATIVE); Mucus Urine Rare /lpf; Nitrate Urine Negative (Negative); Protein Urine Negative (Negative); Specific Grav Ur 1.013 (1.001-1.035); Squamous Epithelial Cell Urine Many /hpf (Few); Urobilinogen Urine Negative mg/dL (<2.0); WBC Urine 16-20 /hpf (0-3)
--- NOTE | 2020-07-01 09:33 | PM.IMPN ---
Progress Note: A&P Assessment and Plan (1) Acute on chronic respiratory failure with hypoxemia: Code(s): J96.21 - Acute and chronic respiratory failure with hypoxia Status: Acute Assessment and Plan: Patient is usually on oxygen at home 2 L by nasal cannula she is supposed to wear continuously however patient uses only after the she gets short of breath after doing her activities of daily living she will wear it on and off. Patient was requiring 10 L high-flow by nasal cannula oxygen Decided to place on BiPAP continues overnight Try and keep oxygen saturation at 88 at % or above patient's baseline is 88% Patient is feeling much better. Will continue current treatment. Increase activity. Repeat x-ray presence of shunt physiology with increasing hypoxemia, no PE Will continue current treatment and repeat chest x-ray in the morning. (2) Right lower lobe pulmonary infiltrate: Code(s): R91.8 - Other nonspecific abnormal finding of lung field Status: Acute Assessment and Plan: Patient has allergy to penicillins Is started on aztreonam and Zithromax Await cultures Continue antibiotics. swtihced to levaquin. Repeat chest x-ray in the morning. (3) Idiopathic peripheral neuropathy: Code(s): G60.9 - Hereditary and idiopathic neuropathy, unspecified Status: Acute Assessment and Plan: Continue home meds (4) PFO (patent foramen ovale): Code(s): Q21.1 - Atrial septal defect Status: Chronic Assessment and Plan: No murmurs auscultated at physical exam Continue to monitor will get echo. echo from 08/2019 reveiwed. had an ASD workup (5) Hypertension: Code(s): I10 - Essential (primary) hypertension Status: Acute Assessment and Plan: Continue home meds Continue to monitor (6) Restless legs syndrome: Code(s): G25.81 - Restless legs syndrome Status: Acute Assessment and Plan: Continue home meds continue to monitor (7) Thoracic aortic aneurysm: Code(s): I71.2 - Thoracic aortic aneurysm, without rupture Status: Acute Assessment and Plan: Continue to monitor try and keep blood pressure at 130/80 Restart home meds (8) Enterococcus UTI: Code(s): N39.0 - Urinary tract infection, site not specified; B95.2 - Enterococcus as the cause of diseases classified elsewhere Status: Acute Assessment and Plan: add nitrofurantoin Additional Plan Will continue with oxygen and IV antibiotics. Point alert and electrolytes. Increase activity as tolerated. Repeat chest x-ray in the morning. Subjective Date/time seen: 07/01/20 09:33 Interval history: 07/01:- Patient was seen during the morning rounds today. She feels about the same, she is on high flow oxygen. Saturation has been the same, low to mid 80s. She is feeling slightly better than when she came in.She has underling PFO with right to left shunting. No abdominal pain, nausea vomiting. Mood stable. Review of Systems Review of Systems: All systems reviewed & are unremarkable except as noted in HPI and below ( the history and physical exam) Constitutional: Constitutional: Reports chills, Reports fatigue, Reports fever(s), Reports malaise and Reports poor appetite Eyes: Eyes: Denies change in vision ENT: Denies dizziness, Denies nasal congestion, Denies nasal discharge, Denies post nasal drip and Reports sore throat Cardiovascular: Cardiovascular: Denies chest pain, Denies leg edema and Reports dyspnea Respiratory: Respiratory: Reports change in phlegm color, Reports chest congestion, Reports cough and Reports dyspnea Gastrointestinal: Gastrointestinal: Denies abdominal pain Genitourinary: Genitourinary: Denies dysuria Musculoskeletal: Musculoskeletal: Denies myalgias and Denies arthralgias Integumentary/Breasts: Skin/Breast: Denies rash Neurologic: Denies dizziness and Denies focal weakness Endocrine: Endocrine: Reports no add
[2020-07-01] MEDS: ALPRAZolam (*CRX) 0.5 MG TABLET PO (09:57)
[2020-07-01] MEDS: PRAMIPEXOLE 0.25 MG TABLET PO ×2 (10:25→17:52)
[2020-07-01] MEDS: ATORVASTATIN 20 MG TABLET PO (10:26)
[2020-07-01] MEDS: amLODIPine BESYLATE 2.5 MG TABLET PO (10:26)
[2020-07-01] MEDS: NITROFURANTOIN MONOHYD MACROCR 100 MG CAP PO ×2 (10:27→21:47)
[2020-07-01] MEDS: VITAMIN B COMPLEX CAPSULE 1 CAP PO (10:27)
[2020-07-01] MEDS: lisinopriL 20 MG TABLET 40 MG PO (10:27)
[2020-07-01] MEDS: ASPIRIN 81 MG ENTERIC TABLET PO (10:27)
[2020-07-01] MEDS: levoFLOXacin 500 MG/D5W 100 ML 500 MG/100 ML BAG 100 MG IVPB (10:36)
--- NOTE | 2020-07-01 12:08 | PM.PNPUL ---
Progress Note: A&P Assessment and Plan (1) Acute respiratory failure with hypoxemia: Code(s): J96.01 - Acute respiratory failure with hypoxia Status: Acute Assessment and Plan: PE rule out. This most likely is PFO exacerbation with Right to left shunting. She may need a repeat Echo or ROLANDO with contrast to see if there is significant right to left shunting. (2) Acute bronchitis: Code(s): J20.9 - Acute bronchitis, unspecified Status: Acute Assessment and Plan: Resolving, continue Levaquin as prescribed. No evidence of pneumonia (3) PFO (patent foramen ovale): Code(s): Q21.1 - Atrial septal defect Status: Chronic Assessment and Plan: She has presence of shunt physiology with increasing hypoxemia but no obvious lung parenchymal causes and no suspicion of pulmonary embolism. This is very difficult to treat. Laying down versus sitting up may help also will try a dose of Lasix to see if we can decrease the right atrial pressure a bit which may help as well. Otherwise continue high-flow oxygen to maintain O2 saturations at 85% or above. (4) Atelectasis of both lungs: Code(s): J98.11 - Atelectasis Status: Acute Assessment and Plan: mild, continue incentive spirometer Q2h while awake Subjective Date/time seen: 07/01/20 12:08 Interval history: CT scan PE protocol shows no obvious pulmonary embolism in the central pulmonary emboli but still awaiting for radiology report for confirmation. There is some mild bibasilar atelectasis but no obvious pneumonia or other pulmonary infiltrates. Review of Systems Review of Systems: All systems reviewed & are unremarkable except as noted in HPI and below Exam Const: General: comfortable, no acute distress, well developed, alert and awake Nutritional Appearance: average body habitus Orientation/consciousness: patient oriented x3 HENMT: Head: normal to inspection, normocephalic and atraumatic Ears: hearing grossly normal bilaterally Face and sinus: normal facial exam Eyes: General: appearance normal, both eyes and all related structures Pupils: Equal, round and reactive pupils present EOM: EOMs intact bilaterally Neck: Neck: full ROM, no lymphadenopathy and no JVD Thyroid: thyroid normal Lymphatic: no lymphadenopathy noted Resp: Effort & Inspection: normal respiratory effort and able to speak in complete sentences Auscultation: clear to auscultation bilaterally Cardio: Jugular venous distension: no JVD Rate: regular rate Rhythm: regular rhythm Heart sounds: S1 normal heart sound present and S2 normal heart sound present : General: Yes deferred Skin: Rashes: no rashes Wounds: no wounds Neuro: General: patient oriented x3 and CN's II-XI intact bilaterally Cranial nerves: Yes CN's II-XII intact bilaterally and Yes Equal, round and reactive pupils present Cognition (Neuro): normal cognition Speech: normal speech Gait exam (Neuro): Normal gait present Motor exam (neuro): 5/5 motor strength present throughout Extrem: General: normal to inspection, full ROM, no joint enlargement and no pedal edema Objective Data Vital Signs Vital Signs: Vital Signs - 24 hr 06/30/20 13:42 06/30/20 13:43 06/30/20 13:50 Temperature Pulse Rate 81 82 Respiratory Rate 18 20 Blood Pressure Pulse Oximetry 80 L 06/30/20 14:00 06/30/20 15:49 06/30/20 16:00 Temperature 36.7 C Pulse Rate 78 83 Respiratory Rate 17 Blood Pressure 115/75 Pulse Oximetry 78 L 81 L 06/30/20 18:00 06/30/20 19:17 06/30/20 20:00 Temperature 36.6 C Pulse Rate 79 76 78 Respiratory Rate 20 Blood Pressure 122/74 Pulse Oximetry 85 L 80 L 06/30/20 20:34 06/30/20 20:36 06/30/20 20:45 Temperature Pulse Rate 80 75 82 Respiratory Rate 20 20 20 Blood Pressure Pulse Oximetry 80 L 06/30/20 22:00 07/01/20 00:00 07/01/20 02:00 Temperature 36.4 C Pulse Rate 87 76 67 Respiratory Rate 16 Blood Pres
[2020-07-01] MEDS: MULTIVITAMINS THERAPEUTIC TAB (*BKC) 1 TABLET PO (15:22)
[2020-07-01] MEDS: ENOXAPARIN 80 MG/0.8 ML SYRINGE 70 MG SUB-Q ×2 (15:23→21:47)
[2020-07-01] MEDS: PANTOPRAZOLE SODIUM IV 40 MG VIAL IV PUSH (15:23)
[2020-07-01] MEDS: DOCUSATE SODIUM LIQ 100 MG/10 ML UDC 50 MG PO (17:53)
[2020-07-01] MEDS: MELATONIN 5 MG TABLET PO (21:47)
[2020-07-01] MEDS: AMITRIPTYLINE HCL 10 MG TABLET PO (21:47)
[2020-07-02] VITALS (20 sets, daily range): BP systolic 94–128; BP diastolic 56–80; PULSE 55–88; RESP 14–20; TEMP 36.1–36.6; O2SAT 89–99
[2020-07-02] MEDS: IPRATROPIUM BR 0.02% INH SOLN 0.5 MG/2.5 ML VIAL INHALATION ×4 (01:59→20:41)
[2020-07-02 04:51] LABS: Hematocrit 42.1 % (37.0-47.0); Hemoglobin 14.5 g/dL (12.0-15.0); Mean Corpuscular HGB Conc 34.4 g/dl (32-36); Mean Corpuscular Hemoglobin 30.5 pg (26-34); Mean Corpuscular Volume 88.6 fl (80-100); Mean Platelet Volume 9.3 fl (7.4-10.4); Platelet Count Result 291 k/mm3 (150-375); Red Blood Count 4.75 M/mm3 (4.2-5.4); White Blood Count 18.9 K/mm3 (4.5-10.0)
[2020-07-02 05:17] LABS: Anion Gap 5 mmol/L (8-16); Blood Urea Nitrogen 16 mg/dL (7-17); Calcium 10.3 mg/dL (8.4-10.2); Carbon Dioxide 28 mmol/L (22-30); Chloride 94 mmol/L (98-107); Estimated CRCL calculation 56 ml/min; Estimated Glomerular Filt Rate > 60; Glucose 137 mg/dL (65-105); Magnesium 2.1 mg/dL (1.6-2.3); Potassium 2.9 mmol/L (3.4-5.0); Sodium 127 mmol/L (137-145)
[2020-07-02 05:24] LABS: NT Pro B Type Natriuretic Pept 131 pg/mL (5-100)
--- NOTE | 2020-07-02 08:56 | PM.IMPN ---
Progress Note: A&P Assessment and Plan (1) Acute on chronic respiratory failure with hypoxemia: Code(s): J96.21 - Acute and chronic respiratory failure with hypoxia Status: Acute Assessment and Plan: Patient is usually on oxygen at home 2 L by nasal cannula she is supposed to wear continuously however patient uses only after the she gets short of breath after doing her activities of daily living she will wear it on and off. Patient was requiring 10 L high-flow by nasal cannula oxygen Decided to place on BiPAP continues overnight Try and keep oxygen saturation at 88 at % or above patient's baseline is 88% Patient is feeling much better. Will continue current treatment. Increase activity. Repeat x-ray presence of shunt physiology with increasing hypoxemia, no PE 07/02:- Will continue current treatment, oxygen and antibiotic (2) Right lower lobe pulmonary infiltrate: Code(s): R91.8 - Other nonspecific abnormal finding of lung field Status: Acute Assessment and Plan: Patient has allergy to penicillins Is started on aztreonam and Zithromax Await cultures Continue antibiotics. swtihced to levaquin. Repeat chest x-ray in am. (3) Idiopathic peripheral neuropathy: Code(s): G60.9 - Hereditary and idiopathic neuropathy, unspecified Status: Acute Assessment and Plan: Continue home meds (4) PFO (patent foramen ovale): Code(s): Q21.1 - Atrial septal defect Status: Chronic Assessment and Plan: No murmurs auscultated at physical exam Continue to monitor will get echo. echo from 08/2019 reveiwed. had an ASD workup (5) Hypertension: Code(s): I10 - Essential (primary) hypertension Status: Acute Assessment and Plan: Continue home meds Continue to monitor (6) Restless legs syndrome: Code(s): G25.81 - Restless legs syndrome Status: Acute Assessment and Plan: Continue home meds continue to monitor (7) Thoracic aortic aneurysm: Code(s): I71.2 - Thoracic aortic aneurysm, without rupture Status: Acute Assessment and Plan: Continue to monitor try and keep blood pressure at 130/80 Restart home meds (8) Enterococcus UTI: Code(s): N39.0 - Urinary tract infection, site not specified; B95.2 - Enterococcus as the cause of diseases classified elsewhere Status: Acute Assessment and Plan: add nitrofurantoin Additional Plan Will continue with oxygen and IV antibiotics. Point alert and electrolytes. Increase activity as tolerated. Repeat chest x-ray in the morning. Potassium was replaced, will repeat in a.m.. Subjective Date/time seen: 07/02/20 08:56 Interval history: 07/01:- Patient was seen during the morning rounds today. She feels about the same, she is on high flow oxygen. Saturation has been the same, low to mid 80s. She is feeling slightly better than when she came in.She has underling PFO with right to left shunting. No abdominal pain, nausea vomiting. Mood stable. 07/02:-patient was seen during morning rounds. Mild shortness of breath, no chest pain. No abdominal pain, no nausea, no vomiting. Mood stable. Review of Systems Review of Systems: All systems reviewed & are unremarkable except as noted in HPI and below ( the history and physical exam) Constitutional: Constitutional: Reports chills, Reports fatigue, Reports fever(s), Reports malaise and Reports poor appetite Eyes: Eyes: Denies change in vision ENT: Denies dizziness, Denies nasal congestion, Denies nasal discharge, Denies post nasal drip and Reports sore throat Cardiovascular: Cardiovascular: Denies chest pain, Denies leg edema and Reports dyspnea Respiratory: Respiratory: Reports change in phlegm color, Reports chest congestion, Reports cough and Reports dyspnea Gastrointestinal: Gastrointestinal: Denies abdominal pain Genitourinary: Genitourinary: Denies dysuria Musculoskeletal: Musculoskeletal: Denies myalg
[2020-07-02] MEDS: lisinopriL 20 MG TABLET 40 MG PO (09:01)
[2020-07-02] MEDS: NITROFURANTOIN MONOHYD MACROCR 100 MG CAP PO ×2 (09:01→20:56)
[2020-07-02] MEDS: ASPIRIN 81 MG ENTERIC TABLET PO (09:01)
[2020-07-02] MEDS: amLODIPine BESYLATE 2.5 MG TABLET PO (09:01)
[2020-07-02] MEDS: VITAMIN B COMPLEX CAPSULE 1 CAP PO (09:01)
[2020-07-02] MEDS: PANTOPRAZOLE SODIUM IV 40 MG VIAL IV PUSH (09:01)
[2020-07-02] MEDS: PRAMIPEXOLE 0.25 MG TABLET PO ×2 (09:02→17:46)
[2020-07-02] MEDS: ATORVASTATIN 20 MG TABLET PO (09:02)
[2020-07-02] MEDS: levoFLOXacin 500 MG/D5W 100 ML 500 MG/100 ML BAG 100 MG IVPB (09:02)
[2020-07-02] MEDS: MULTIVITAMINS THERAPEUTIC TAB (*BKC) 1 TABLET PO (09:02)
[2020-07-02] MEDS: POTASSIUM CHLORIDE 20 MEQ PACKET (FOR LIQUID) PO (09:02)
[2020-07-02] MEDS: ENOXAPARIN 80 MG/0.8 ML SYRINGE 70 MG SUB-Q (09:02)
[2020-07-02] MEDS: FUROSEMIDE INJ 40 MG/4 ML VIAL IV PUSH (09:02)
--- NOTE | 2020-07-02 09:39 | PM.CNCAR ---
Assessment and Plan Additional Plan This is an 84-year-old lady who has a chronically diagnosed patent foramen ovale. Pain foramen ovale will potentially result in paradoxical embolic events. I generally do not consider this to be a likely reason for systemic hypoxemia. There was an elegant study in the cardiac catheterization lab as I mentioned above I will put this on the chart for the benefit of the other physicians. I am not aware of a reason to think that a defect like this would enlarge spontaneously and now resulted in the need to re-evaluate this issue again. Her echocardiogram/from bubble study does represent/demonstrate a persistently positive bubble study but that of course is to be expected and is I do not believe of any additional concern. Awais Pickard MD [facility] History of Present Illness History of Present Illness Consult date/time: 07/02/20 09:39 Reason For Visit: pneumonia, oxygen dependent Narrative: This is an 84-year-old woman who I am asked to see at the request of the hospitalist and pulmonology service apparently to render an opinion as to whether a patent foramen ovale would potentially be causing a now off [id number] intracardiac shunting to explain worsening arterial hypoxemia. The patient has a history of hypoxemia that has been difficult to explain from what I can see in her chart. She apparently has some element of chronic lung disease that is not well delineated. She also for a number of years has been found to have a patent foramen ovale. For this exact same reason she was referred to the Cardiology Department done at [facility] back in 2015. She was seeing the pulmonology and cardiology physicians there to evaluate episodes of increasing hypoxemia. It must be stated clearly that the patient does not have any atrial septal defect she has a small patent foramen ovale. To definitively assess whether not there was an of shunting to explain any of this or whether she would benefit from PFO closure she was brought to the cardiac clinical laboratory service teacher at [facility] on May 05, 2015. She underwent right heart catheterization with oxygen saturation run and test balloon occlusion of the PFO. During that procedure and [place] lots her exchange wire was advanced across the PFO into the left atrium and a balloon occluder was inflated into the patent foramen ovale for 5 minutes without any change in the pressures or in the oxygen saturation results. It was therefore concluded that there was not enough shunting to explain her arterial hypoxemia and that further evaluation of this was not necessary. I must say that I have never been aware of the case of a patent foramen ovale that results in arterial desaturation. Obviously ostium secundum an ostium primum ASD is a can be implicated in this but I have not seen or heard of a case where this happens because of a patent foramen ovale. It seems that this issue was definitively evaluated in the clinical laboratory service teacher at [facility] about 5 years ago. She has no other cardiovascular complaints she denies any chest pain orthopnea PND edema or syncope. Review of Systems Constitutional: Constitutional: Reports fatigue Eyes: Eyes: Reports no additional eye complaints ENT: Reports system reviewed and no additional complaints, except as documented Cardiovascular: Cardiovascular: Reports no additional cardiovascular complaints Respiratory: Respiratory: Reports dyspnea on exertion Gastrointestinal: Gastrointestinal: Reports no additional gastrointestinal complaints Musculoskeletal: Musculoskeletal: Reports no additional musculoskeletal complaints Integumentary/Breasts: Skin/Breast: Reports system reviewed and no additional complaints, except as docu Endocrine: Endocrine: Reports no additional endocrine complaints Hematologic/Lymphatic: Hematologic/Lymphatic: Reports no additional hematologic/lymphatic complaints Allergic/Immunologic: Allergic/Immunologic: Reports no additional allergic/immunologi
[2020-07-02] MEDS: MAGNESIUM OXIDE 200 MG TABLET PO ×2 (12:12→20:56)
[2020-07-02] MEDS: POTASSIUM CHLORIDE 20 MEQ PACKET (FOR LIQUID) 40 MEQ PO (12:13)
--- NOTE | 2020-07-02 13:37 | PM.PNPUL ---
Progress Note: A&P Assessment and Plan (1) Acute respiratory failure with hypoxemia: Code(s): J96.01 - Acute respiratory failure with hypoxia Status: Acute Assessment and Plan: She has no P.E., COPD, Asthma, ILD, pneumonia or other discernable pulmonary reasons for profound hypoxia. Bilateral atelectesis is minimal and does not offer an explaination. Cardiac shunting rather than pulmonary shunting is highly suspected given history of PFO. Although PFO catheter closure testing done many years ago at [place] did not show benefit, I feel this needs to be reexamined. Other causes such as Eustacian valve, pulmonary venous connection or development of pulmonary hypertension with right to left shunting should be examined. (2) Acute bronchitis: Code(s): J20.9 - Acute bronchitis, unspecified Status: Acute Assessment and Plan: Resolving, continue Levaquin as prescribed. No evidence of pneumonia (3) PFO (patent foramen ovale): Code(s): Q21.1 - Atrial septal defect Status: Chronic Assessment and Plan: She has presence of shunt physiology with increasing hypoxemia but no obvious lung parenchymal causes and no suspicion of pulmonary embolism. This is very difficult to treat. Laying down versus sitting up may help also will try a dose of Lasix to see if we can decrease the right atrial pressure a bit which may help as well. Otherwise continue high-flow oxygen to maintain O2 saturations at 85% or above. (4) Atelectasis of both lungs: Code(s): J98.11 - Atelectasis Status: Acute Assessment and Plan: mild, continue incentive spirometer Q2h while awake Subjective Date/time seen: 07/02/20 13:37 Interval history: She has no P.E., COPD, Asthma, ILD, pneumonia or other discernable pulmonary reasons for profound hypoxia. Bilateral atelectesis is minimal and does not offer an explaination. Cardiac shunting rather than pulmonary shunting is highly suspected given history of PFO. Although PFO catheter closure testing done many years ago at [place] did not show benefit, I feel this needs to be reexamined. Other causes such as Eustacian valve, pulmonary venous connection or development of pulmonary hypertension with right to left shunting should be examined. Review of Systems Review of Systems: All systems reviewed & are unremarkable except as noted in HPI and below Exam Const: General: comfortable, no acute distress, well developed, alert and awake Nutritional Appearance: average body habitus Orientation/consciousness: patient oriented x3 HENMT: Head: normal to inspection, normocephalic and atraumatic Ears: hearing grossly normal bilaterally Face and sinus: normal facial exam Eyes: General: appearance normal, both eyes and all related structures Pupils: Equal, round and reactive pupils present EOM: EOMs intact bilaterally Neck: Neck: full ROM, no lymphadenopathy and no JVD Thyroid: thyroid normal Lymphatic: no lymphadenopathy noted Resp: Effort & Inspection: normal respiratory effort and able to speak in complete sentences Auscultation: clear to auscultation bilaterally Cardio: Jugular venous distension: no JVD Rate: regular rate Rhythm: regular rhythm Heart sounds: S1 normal heart sound present and S2 normal heart sound present : General: Yes deferred Skin: Rashes: no rashes Wounds: no wounds Neuro: General: patient oriented x3 and CN's II-XI intact bilaterally Cranial nerves: Yes CN's II-XII intact bilaterally and Yes Equal, round and reactive pupils present Cognition (Neuro): normal cognition Speech: normal speech Gait exam (Neuro): Normal gait present Motor exam (neuro): 5/5 motor strength present throughout Extrem: General: normal to inspection, full ROM, no joint enlargement and no pedal edema Objective Data Vital Signs Vital Signs: Vital Signs - 24 hr 07/01/20 14:00 07/01/20 16:00 07/01/20 18:00 Temperature 36.7 C Pulse Rate 89 80 82 Respirato
[2020-07-02] MEDS: DOCUSATE SODIUM LIQ 100 MG/10 ML UDC 50 MG PO (17:45)
[2020-07-02] MEDS: MELATONIN 5 MG TABLET PO (20:56)
[2020-07-02] MEDS: AMITRIPTYLINE HCL 10 MG TABLET PO (20:56)
[2020-07-03] VITALS (31 sets, daily range): BP systolic 98–117; BP diastolic 49–79; PULSE 57–88; RESP 18–22; TEMP 36.1–37; O2SAT 79–98
[2020-07-03] MEDS: IPRATROPIUM BR 0.02% INH SOLN 0.5 MG/2.5 ML VIAL INHALATION ×4 (02:02→19:48)
[2020-07-03 04:50] LABS: Hematocrit 46.1 % (37.0-47.0); Hemoglobin 15.4 g/dL (12.0-15.0); Mean Corpuscular HGB Conc 33.4 g/dl (32-36); Mean Corpuscular Hemoglobin 29.7 pg (26-34); Mean Corpuscular Volume 88.8 fl (80-100); Mean Platelet Volume 9.2 fl (7.4-10.4); Platelet Count Result 295 k/mm3 (150-375); Red Blood Count 5.19 M/mm3 (4.2-5.4); Red Cell Distribution Width 14.2 % (11.5-14.5); White Blood Count 11.5 K/mm3 (4.5-10.0)
[2020-07-03 06:17] LABS: Anion Gap 1 mmol/L (8-16); Blood Urea Nitrogen 14 mg/dL (7-17); Carbon Dioxide 30 mmol/L (22-30); Chloride 102 mmol/L (98-107); Estimated CRCL calculation 49 ml/min; Estimated Glomerular Filt Rate > 60; Glucose 89 mg/dL (65-105); Sodium 133 mmol/L (137-145)
[2020-07-03] MEDS: levoFLOXacin 500 MG/D5W 100 ML 500 MG/100 ML BAG 100 MG IVPB (08:28)
[2020-07-03] MEDS: lisinopriL 20 MG TABLET 40 MG PO (08:28)
[2020-07-03] MEDS: ATORVASTATIN 20 MG TABLET PO (08:29)
[2020-07-03] MEDS: ASPIRIN 81 MG ENTERIC TABLET PO (08:29)
[2020-07-03] MEDS: amLODIPine BESYLATE 2.5 MG TABLET PO (08:29)
[2020-07-03] MEDS: NITROFURANTOIN MONOHYD MACROCR 100 MG CAP PO ×2 (08:29→21:33)
[2020-07-03] MEDS: MAGNESIUM OXIDE 200 MG TABLET PO ×2 (08:29→21:33)
[2020-07-03] MEDS: FUROSEMIDE INJ 40 MG/4 ML VIAL IV PUSH (08:29)
[2020-07-03] MEDS: MULTIVITAMINS THERAPEUTIC TAB (*BKC) 1 TABLET PO (08:29)
[2020-07-03] MEDS: PRAMIPEXOLE 0.25 MG TABLET PO ×2 (08:29→17:19)
[2020-07-03] MEDS: VITAMIN B COMPLEX CAPSULE 1 CAP PO (08:29)
[2020-07-03] MEDS: PANTOPRAZOLE SODIUM IV 40 MG VIAL IV PUSH (08:29)
[2020-07-03] MEDS: POTASSIUM CHLORIDE 20 MEQ PACKET (FOR LIQUID) PO (08:30)
[2020-07-03] MEDS: ENOXAPARIN 40 MG/0.4 ML SYRINGE SUB-Q (08:30)
--- NOTE | 2020-07-03 09:44 | PM.IMPN ---
Progress Note: A&P Assessment and Plan (1) Acute on chronic respiratory failure with hypoxemia: Code(s): J96.21 - Acute and chronic respiratory failure with hypoxia Status: Acute Assessment and Plan: Patient is usually on oxygen at home 2 L by nasal cannula she is supposed to wear continuously however patient uses only after the she gets short of breath after doing her activities of daily living she will wear it on and off. Patient was requiring 10 L high-flow by nasal cannula oxygen Decided to place on BiPAP continues overnight Try and keep oxygen saturation at 88 at % or above patient's baseline is 88% Patient is feeling much better. Will continue current treatment. Increase activity. Repeat x-ray presence of shunt physiology with increasing hypoxemia, no PE Will continue current treatment, oxygen and antibiotic (2) Right lower lobe pulmonary infiltrate: Code(s): R91.8 - Other nonspecific abnormal finding of lung field Status: Acute Assessment and Plan: Patient has allergy to penicillins Is started on aztreonam and Zithromax Await cultures Continue antibiotics. Repeat chest x-ray in am. (3) Idiopathic peripheral neuropathy: Code(s): G60.9 - Hereditary and idiopathic neuropathy, unspecified Status: Acute Assessment and Plan: Continue home meds (4) PFO (patent foramen ovale): Code(s): Q21.1 - Atrial septal defect Status: Chronic Assessment and Plan: No murmurs auscultated at physical exam Continue to monitor will get echo. echo from 08/2019 reveiwed. had an ASD workup (5) Hypertension: Code(s): I10 - Essential (primary) hypertension Status: Acute Assessment and Plan: Continue home meds Continue to monitor (6) Restless legs syndrome: Code(s): G25.81 - Restless legs syndrome Status: Acute Assessment and Plan: Continue home meds continue to monitor (7) Thoracic aortic aneurysm: Code(s): I71.2 - Thoracic aortic aneurysm, without rupture Status: Acute Assessment and Plan: Continue to monitor try and keep blood pressure at 130/80 Restart home meds (8) Enterococcus UTI: Code(s): N39.0 - Urinary tract infection, site not specified; B95.2 - Enterococcus as the cause of diseases classified elsewhere Status: Acute Assessment and Plan: add nitrofurantoin Additional Plan Will continue with oxygen and IV antibiotics. Point alert and electrolytes. Increase activity as tolerated. Consult noted. Will ask social worker assistant to see patient possible care home placement. Subjective Date/time seen: 07/03/20 09:44 Interval history: 07/01:- Patient was seen during the morning rounds today. She feels about the same, she is on high flow oxygen. Saturation has been the same, low to mid 80s. She is feeling slightly better than when she came in.She has underling PFO with right to left shunting. No abdominal pain, nausea vomiting. Mood stable. 07/02:-patient was seen during morning rounds. Mild shortness of breath, no chest pain. No abdominal pain, no nausea, no vomiting. Mood stable. 07/03:-patient was seen during the morning rounds today. Feeling slightly better. Mild shortness of breath no chest pain. Mood stable. Review of Systems Review of Systems: All systems reviewed & are unremarkable except as noted in HPI and below ( the history and physical exam) Constitutional: Constitutional: Reports chills, Reports fatigue, Reports fever(s), Reports malaise and Reports poor appetite Eyes: Eyes: Denies change in vision ENT: Denies dizziness, Denies nasal congestion, Denies nasal discharge, Denies post nasal drip and Reports sore throat Cardiovascular: Cardiovascular: Denies chest pain, Denies leg edema and Reports dyspnea Respiratory: Respiratory: Reports change in phlegm color, Reports chest congestion, Reports cough and Reports dyspnea Gastrointestinal: Gastrointestinal: Ovi
--- NOTE | 2020-07-03 11:29 | PM.PNPUL ---
Progress Note: A&P Assessment and Plan (1) Acute respiratory failure with hypoxemia: Code(s): J96.01 - Acute respiratory failure with hypoxia Status: Acute Assessment and Plan: 07/03 She has no P.E., COPD, Asthma, ILD, pneumonia or other discernable pulmonary reasons for profound hypoxia. Bilateral atelectesis is minimal and does not offer an explaination. Cardiac shunting rather than pulmonary shunting is highly suspected given history of PFO. Although PFO catheter closure testing done many years ago at [place] did not show benefit, I feel this needs to be reexamined. Other causes such as Eustacian valve, pulmonary venous connection or development of pulmonary hypertension with right to left shunting should be examined. 07/04 She tells me that she will not have any additional testing on heart at [facility]. (2) Acute bronchitis: Code(s): J20.9 - Acute bronchitis, unspecified Status: Acute Assessment and Plan: Group A Streptococcus in throat culture. 07/02 Resolving, continue Levaquin as prescribed. No evidence of pneumonia. 07/03 states less cough and phlegm is now clear. Continue levaquin. (3) PFO (patent foramen ovale): Code(s): Q21.1 - Atrial septal defect Status: Chronic Assessment and Plan: She has presence of shunt physiology with increasing hypoxemia but no obvious lung parenchymal causes and negative CTA for PE. This is very difficult to treat. Laying down versus sitting up may help also will try a dose of Lasix to see if we can decrease the right atrial pressure a bit which may help as well. Otherwise continue high-flow oxygen to maintain O2 saturations at 85% or above. 07/04 no additiona testing to be done per patient. Subjective Date/time seen: 07/03/20 11:29 Interval history: 07/02/20 Interval history: She has no P.E., COPD, Asthma, ILD, pneumonia or other discernable pulmonary reasons for profound hypoxia. Bilateral atelectesis is minimal and does not offer an explaination. Cardiac shunting rather than pulmonary shunting is highly suspected given history of PFO. Although PFO catheter closure testing done many years ago at [place] did not show benefit, I feel this needs to be reexamined. Other causes such as Eustacian valve, pulmonary venous connection or development of pulmonary hypertension with right to left shunting should be examined. 07/03 Patient states that cough is improved, currently on AirVO 40L 45% with sats 89%. Denies any noé SOB at rest. She does not want any additional testing on her heart done at [facility] at this time. Review of Systems Review of Systems: All systems reviewed & are unremarkable except as noted in HPI and below Eyes: Eyes: Reports no additional eye complaints ENT: Reports system reviewed and no additional complaints, except as documented and Reports sinus pressure Cardiovascular: Cardiovascular: Reports no additional cardiovascular complaints Respiratory: Respiratory: Reports no additional respiratory complaints Gastrointestinal: Gastrointestinal: Reports no additional gastrointestinal complaints Musculoskeletal: Musculoskeletal: Reports no additional musculoskeletal complaints Integumentary/Breasts: Skin/Breast: Reports system reviewed and no additional complaints, except as docu Neurologic: Reports system reviewed and no additional complaints, except as documented and Reports behavioral changes Psychiatric: Psychiatric: Reports no additional psychiatric complaints and Reports behavioral changes Endocrine: Endocrine: Reports no additional endocrine complaints Exam Const: General: cooperative and healthy appearing Orientation/consciousness: oriented to person, oriented to place and oriented to time HENMT: Head: normal to inspection Ears: hearing grossly normal bilaterally Mouth: Yes Normal oral and palatal mucosa present Throat: tonsils absent Eyes: General: appearance normal, both eyes and all related
[2020-07-03] MEDS: ACETAMINOPHEN 500 MG TABLET PO (15:05)
[2020-07-03] MEDS: DOCUSATE SODIUM LIQ 100 MG/10 ML UDC 50 MG PO (17:19)
[2020-07-03] MEDS: MELATONIN 5 MG TABLET PO (21:33)
[2020-07-03] MEDS: AMITRIPTYLINE HCL 10 MG TABLET PO (21:33)
[2020-07-04] VITALS (22 sets, daily range): BP systolic 99–135; BP diastolic 65–80; PULSE 60–92; RESP 16–22; TEMP 36.1–36.6; O2SAT 84–97; BMI 28.7
[2020-07-04] MEDS: IPRATROPIUM BR 0.02% INH SOLN 0.5 MG/2.5 ML VIAL INHALATION ×4 (01:56→20:03)
[2020-07-04] MEDS: MAGNESIUM OXIDE 200 MG TABLET PO ×2 (08:27→20:59)
[2020-07-04] MEDS: ASPIRIN 81 MG ENTERIC TABLET PO (08:27)
[2020-07-04] MEDS: MULTIVITAMINS THERAPEUTIC TAB (*BKC) 1 TABLET PO (08:27)
[2020-07-04] MEDS: VITAMIN B COMPLEX CAPSULE 1 CAP PO (08:27)
[2020-07-04] MEDS: ATORVASTATIN 20 MG TABLET PO (08:27)
[2020-07-04] MEDS: FUROSEMIDE INJ 40 MG/4 ML VIAL IV PUSH (08:28)
[2020-07-04] MEDS: POTASSIUM CHLORIDE 20 MEQ PACKET (FOR LIQUID) PO (08:28)
[2020-07-04] MEDS: PANTOPRAZOLE SODIUM IV 40 MG VIAL IV PUSH (08:28)
[2020-07-04] MEDS: PRAMIPEXOLE 0.25 MG TABLET PO ×2 (08:28→17:25)
[2020-07-04] MEDS: ENOXAPARIN 40 MG/0.4 ML SYRINGE SUB-Q (08:28)
[2020-07-04] MEDS: NITROFURANTOIN MONOHYD MACROCR 100 MG CAP PO ×2 (08:28→20:59)
[2020-07-04] MEDS: lisinopriL 20 MG TABLET 40 MG PO (08:28)
[2020-07-04] MEDS: amLODIPine BESYLATE 2.5 MG TABLET PO (08:28)
[2020-07-04] MEDS: levoFLOXacin 500 MG/D5W 100 ML 500 MG/100 ML BAG 100 MG IVPB (08:34)
--- NOTE | 2020-07-04 10:20 | PM.IMPN ---
Progress Note: A&P Assessment and Plan (1) Acute on chronic respiratory failure with hypoxemia: Code(s): J96.21 - Acute and chronic respiratory failure with hypoxia Status: Acute Assessment and Plan: Patient is usually on oxygen at home 2 L by nasal cannula she is supposed to wear continuously however patient uses only after the she gets short of breath after doing her activities of daily living she will wear it on and off. Patient was requiring 10 L high-flow by nasal cannula oxygen Decided to place on BiPAP continues overnight Try and keep oxygen saturation at 88 at % or above patient's baseline is 88% Patient is feeling much better. Will continue current treatment. Increase activity. Repeat x-ray presence of shunt physiology with increasing hypoxemia, no PE Will continue current treatment, oxygen and antibiotic (2) Right lower lobe pulmonary infiltrate: Code(s): R91.8 - Other nonspecific abnormal finding of lung field Status: Acute Assessment and Plan: Patient has allergy to penicillins Is started on aztreonam and Zithromax Await cultures Continue antibiotics. Repeat chest x-ray in am. (3) Idiopathic peripheral neuropathy: Code(s): G60.9 - Hereditary and idiopathic neuropathy, unspecified Status: Acute Assessment and Plan: Continue home meds (4) PFO (patent foramen ovale): Code(s): Q21.1 - Atrial septal defect Status: Chronic Assessment and Plan: No murmurs auscultated at physical exam Continue to monitor will get echo. echo from 08/2019 reveiwed. had an ASD workup (5) Hypertension: Code(s): I10 - Essential (primary) hypertension Status: Acute Assessment and Plan: Continue home meds Continue to monitor (6) Restless legs syndrome: Code(s): G25.81 - Restless legs syndrome Status: Acute Assessment and Plan: Continue home meds continue to monitor (7) Thoracic aortic aneurysm: Code(s): I71.2 - Thoracic aortic aneurysm, without rupture Status: Acute Assessment and Plan: Continue to monitor try and keep blood pressure at 130/80 Restart home meds (8) Enterococcus UTI: Code(s): N39.0 - Urinary tract infection, site not specified; B95.2 - Enterococcus as the cause of diseases classified elsewhere Status: Acute Assessment and Plan: add nitrofurantoin Additional Plan Will continue with oxygen and IV antibiotics. Case discussed with Pulmonary and family in detail. Patient is still requiring high-flow oxygen. Possibility pulmonary hypertension ,shunting and atrial septal defect contributing to the condition. If okay with family will transfer the patient to [facility] further evaluation treatment. Subjective Date/time seen: 07/04/20 10:20 Interval history: 07/01:- Patient was seen during the morning rounds today. She feels about the same, she is on high flow oxygen. Saturation has been the same, low to mid 80s. She is feeling slightly better than when she came in.She has underling PFO with right to left shunting. No abdominal pain, nausea vomiting. Mood stable. 07/02:-patient was seen during morning rounds. Mild shortness of breath, no chest pain. No abdominal pain, no nausea, no vomiting. Mood stable. 07/03:-patient was seen during the morning rounds today. Feeling slightly better. Mild shortness of breath no chest pain. Mood stable. 07/04:-patient was seen during the morning rounds today. Still requiring high-flow oxygen, has mild shortness of breath. No abdominal pain, no nausea or vomiting. No chest pain. Mood stable. Review of Systems Review of Systems: All systems reviewed & are unremarkable except as noted in HPI and below ( the history and physical exam) Constitutional: Constitutional: Reports chills, Reports fatigue, Reports fever(s), Reports malaise and Reports poor appetite Eyes: Eyes: Denies change in vision ENT: Denies dizziness, Denies na
--- NOTE | 2020-07-04 10:22 | PM.PNPUL ---
Progress Note: A&P Assessment and Plan (1) Acute respiratory failure with hypoxemia: Code(s): J96.01 - Acute respiratory failure with hypoxia Status: Acute Assessment and Plan: 07/02 She has no P.E., COPD, Asthma, ILD, pneumonia or other discernable pulmonary reasons for profound hypoxia. Bilateral atelectesis is minimal and does not offer an explaination. Cardiac shunting rather than pulmonary shunting is highly suspected given history of PFO. Although PFO catheter closure testing done in 2016 at [place] did not show benefit, I feel this needs to be reexamined. Other causes such as Eustacian valve, pulmonary venous connection or development of pulmonary hypertension with right to left shunting should be examined. 07/03 My first day seeing patient. Consider pulmonary AVM as cause of hypoxemia, would need angiogram. No pulmonary pressures measures on echo from 07/01. She tells me that she will not have any additional testing on heart at [facility]. 07/04 Patient states that she is essentially unchanged. She denies any rest dyspnea on exertion but states that her cough and phlegm are still increased compared to her baseline. Patient is on high-flow airflow 50 L with 80% FiO2 and saturations 92%. I spoke with daughter, Elizabeth, and again strongly recommended that patient be transferred to higher level of care for refractory hypoxemia with history of PFO. Despite 7 days at [place] she is on high flow oxygen 50L and 80% at this time. Daughter will discuss transfer with remainder of family and let us know. I did mention that alternative option is hospice. (2) Acute bronchitis: Code(s): J20.9 - Acute bronchitis, unspecified Status: Acute Assessment and Plan: Group A Streptococcus in throat culture. 07/02 Resolving, continue Levaquin as prescribed. No evidence of pneumonia. Day 4 07/03 states less cough and phlegm is now clear. Continue levaquin. Day 5. 07/04 Day 6 levaquin, cough and phlegm improved but increased to usual for her. (3) PFO (patent foramen ovale): Code(s): Q21.1 - Atrial septal defect Status: Chronic Assessment and Plan: 07/02 She has presence of shunt physiology with increasing hypoxemia but no obvious lung parenchymal causes and negative CTA for PE. This is very difficult to treat. Laying down versus sitting up may help also will try a dose of Lasix to see if we can decrease the right atrial pressure a bit which may help as well. Otherwise continue high-flow oxygen to maintain O2 saturations at 85% or above. 07/03 Previous work up in 2016 was wihtout change in hypoxia with PFO occluded for 5 minutes. Per patient no additional testing to be done per patient. 07/04 Concern for shunt and I recommend transfer to [place] for re-evaluatin as she has changed clinically since 2016 when last evaluation performed. Family to decide. I spoke with Dr. Macedo regarding my recommendation for transfer. Subjective Date/time seen: 07/04/20 10:22 Interval history: 06/[address] Mayo This is an 84-year-old female well known to me with a history of PFO with chronic hypoxemia and polycythemia. She presents after a 1-2 day history of cough productive of thick sputum that began suddenly. She denied sore throat, runny nose, loss of taste or smell, diarrhea or fever chills or night sweats. She did have some vomiting with the coughing but no nausea. She was significantly [place] [id number] in left shift. Although a chest x-ray suggested a basilar infiltrate she underwent a CT scan which showed no evidence of pneumonia or other parenchymal infiltrates. Today she has been weaned down from 15 L to about 7.5 L satting around 95% and her cough has improved with antibiotic therapy. Her COVID PCR test is currently pending. She has received 2 doses of med during a vaccine and her 2nd dose was in April of 2020. 07/02/20 Interval history: She has no P.E., CO
[2020-07-04 11:01] LABS: Alveolar/Arterial O2 Gradient 498.8 mmHg; Base Excess ABG 0.1 mEq/l (+/-2.0); Fractional Inspired Oxygen 81 %; HCO3 ABG 21.8 mEq/l (22.0-26.0); Oxygen Content ABG 19.6 %vol (16.0-22.0); Oxygen Saturation ABG 88.5 % (95.0-100.0); Oxyhemoglobin 86.9 % THb (90.0-100.0); PCO2 ABG 28.5 mmHg (35.0-45.0); Total Hemoglobin 16.1 g/dL (12.0-18.0)
[2020-07-04 11:02] LABS: Device HIGH FLOW THERAPY; Modified Allen's Test Pass; PO2 ABG 48.9 mmHg (80.0-100.0); Site Drawn RIGHT RADIAL; pH ABG 7.501 (7.350-7.450)
[2020-07-04] MEDS: DOCUSATE SODIUM LIQ 100 MG/10 ML UDC 50 MG PO (17:25)
[2020-07-04] MEDS: MELATONIN 5 MG TABLET PO (20:59)
[2020-07-04] MEDS: AMITRIPTYLINE HCL 10 MG TABLET PO (20:59)
[2020-07-05] VITALS (25 sets, daily range): BP systolic 90–123; BP diastolic 56–86; PULSE 58–85; RESP 16–24; TEMP 36.4–36.8; O2SAT 86–97
[2020-07-05] MEDS: IPRATROPIUM BR 0.02% INH SOLN 0.5 MG/2.5 ML VIAL INHALATION ×2 (01:59→09:01)
--- NOTE | 2020-07-05 03:18 | PC.NURSE ---
Naomi from [facility] facility called at 0317 a.m. Update in patient status and current set of vitals reported. No bed available at this time.
[2020-07-05] MEDS: FUROSEMIDE INJ 40 MG/4 ML VIAL IV PUSH (09:12)
[2020-07-05] MEDS: PANTOPRAZOLE SODIUM IV 40 MG VIAL IV PUSH (09:12)
[2020-07-05] MEDS: MAGNESIUM OXIDE 200 MG TABLET PO ×2 (09:21→21:00)
[2020-07-05] MEDS: lisinopriL 20 MG TABLET 40 MG PO (09:21)
[2020-07-05] MEDS: amLODIPine BESYLATE 2.5 MG TABLET PO (09:21)
[2020-07-05] MEDS: NITROFURANTOIN MONOHYD MACROCR 100 MG CAP PO ×2 (09:21→21:00)
[2020-07-05] MEDS: ATORVASTATIN 20 MG TABLET PO (09:21)
[2020-07-05] MEDS: VITAMIN B COMPLEX CAPSULE 1 CAP PO (09:21)
[2020-07-05] MEDS: POTASSIUM CHLORIDE 20 MEQ PACKET (FOR LIQUID) PO (09:21)
[2020-07-05] MEDS: ENOXAPARIN 40 MG/0.4 ML SYRINGE SUB-Q (09:21)
[2020-07-05] MEDS: ASPIRIN 81 MG ENTERIC TABLET PO (09:22)
[2020-07-05] MEDS: MULTIVITAMINS THERAPEUTIC TAB (*BKC) 1 TABLET PO (09:22)
[2020-07-05] MEDS: PRAMIPEXOLE 0.25 MG TABLET PO ×2 (09:22→17:51)
[2020-07-05] MEDS: levoFLOXacin 500 MG/D5W 100 ML 500 MG/100 ML BAG 100 MG IVPB (09:22)
--- NOTE | 2020-07-05 10:24 | PM.PNPUL ---
Progress Note: A&P Assessment and Plan (1) Acute respiratory failure with hypoxemia: Code(s): J96.01 - Acute respiratory failure with hypoxia Status: Acute Assessment and Plan: 07/02 She has no P.E., COPD, Asthma, ILD, pneumonia or other discernable pulmonary reasons for profound hypoxia. Bilateral atelectesis is minimal and does not offer an explaination. Cardiac shunting rather than pulmonary shunting is highly suspected given history of PFO. Although PFO catheter closure testing done in 2015 at [place] did not show benefit, I feel this needs to be reexamined. Other causes such as Eustacian valve, pulmonary venous connection or development of pulmonary hypertension with right to left shunting should be examined. 07/03 My first day seeing patient. Consider pulmonary AVM as cause of hypoxemia, would need angiogram. No pulmonary pressures measures on echo from 07/01. She tells me that she will not have any additional testing on heart at [facility]. 07/04 Patient states that she is essentially unchanged. She denies any rest dyspnea on exertion but states that her cough and phlegm are still increased compared to her baseline. Patient is on high-flow airflow 50 L with 80% FiO2 and saturations 92%. I spoke with daughter, Elizabeth, and again strongly recommended that patient be transferred to higher level of care for refractory hypoxemia with history of PFO. Despite 7 days at [place] she is on high flow oxygen 50L and 80% at this time. Daughter will discuss transfer with remainder of family and let us know. I did mention that alternative option is hospice. Referred to [place] later in day. 07/05 No clinical change. On 50L and 80% FIO2 high flow with sats 96%. Awaiting transfer to [place] for further evaluation (2) Acute bronchitis: Code(s): J20.9 - Acute bronchitis, unspecified Status: Acute Assessment and Plan: Group A Streptococcus in throat culture. 07/02 Resolving, continue Levaquin as prescribed. No evidence of pneumonia. Day 4 07/03 states less cough and phlegm is now clear. Continue levaquin. Day 5. 07/04 Day 6 levaquin, cough and phlegm improved but increased to usual for her. 07/05 No clinical change, phlegm and cough back to baseline. Day 7 levaquin for bronchitis and DC levaquin today. Never with wheezing this admission and was not on bronchodilators at home and will DC ipratroprium today. (3) PFO (patent foramen ovale): Code(s): Q21.1 - Atrial septal defect Status: Chronic Assessment and Plan: 07/02 She has presence of shunt physiology with increasing hypoxemia but no obvious lung parenchymal causes and negative CTA for PE. This is very difficult to treat. Laying down versus sitting up may help also will try a dose of Lasix to see if we can decrease the right atrial pressure a bit which may help as well. Otherwise continue high-flow oxygen to maintain O2 saturations at 85% or above. 07/03 Previous work up in 2016 was wihtout change in hypoxia with PFO occluded for 5 minutes. Per patient no additional testing to be done per patient. 07/04 Concern for shunt and I recommend transfer to [place] for re-evaluation as she has changed clinically since 2015 when last evaluation performed. Family to decide. I spoke with Dr. Macedo regarding my recommendation for transfer. Listed for transfer later in day. 07/05 Agree with transfer when bed available. Subjective Date/time seen: 07/05/20 10:24 Interval history: 06/[address] Mayo This is an 84-year-old female well known to me with a history of PFO with chronic hypoxemia and polycythemia. She presents after a 1-2 day history of cough productive of thick sputum that began suddenly. She denied sore throat, runny nose, loss of taste or smell, diarrhea or fever chills or night sweats. She did have some vomiting with the coughing but no nausea. She was significantly [place] [id number] [place]. A
--- NOTE | 2020-07-05 13:33 | PM.IMPN ---
Progress Note: A&P Assessment and Plan (1) Acute on chronic respiratory failure with hypoxemia: Code(s): J96.21 - Acute and chronic respiratory failure with hypoxia Status: Acute Assessment and Plan: Patient is usually on oxygen at home 2 L by nasal cannula she is supposed to wear continuously however patient uses only after the she gets short of breath after doing her activities of daily living she will wear it on and off. Currently on high-flow oxygen presence of shunt physiology with increasing hypoxemia, no PE Possible transfer to [facility] Will continue current treatment, oxygen and antibiotic (2) Right lower lobe pulmonary infiltrate: Code(s): R91.8 - Other nonspecific abnormal finding of lung field Status: Acute Assessment and Plan: Continue IV antibiotic for now. (3) Idiopathic peripheral neuropathy: Code(s): G60.9 - Hereditary and idiopathic neuropathy, unspecified Status: Acute Assessment and Plan: Continue home meds worsening (4) PFO (patent foramen ovale): Code(s): Q21.1 - Atrial septal defect Status: Chronic Assessment and Plan: No murmurs auscultated at physical exam Continue to monitor Patient may benefit from evaluation at [facility] as she had closure of the PFO 2016 (5) Hypertension: Code(s): I10 - Essential (primary) hypertension Status: Acute Assessment and Plan: DC IV Lasix DC lisinopril if no improvement will give normal saline bolus 500 mL Continue to monitor (6) Restless legs syndrome: Code(s): G25.81 - Restless legs syndrome Status: Acute Assessment and Plan: Continue home meds continue to monitor (7) Thoracic aortic aneurysm: Code(s): I71.2 - Thoracic aortic aneurysm, without rupture Status: Acute Assessment and Plan: Continue to monitor try and keep blood pressure at 130/80 (8) Enterococcus UTI: Code(s): N39.0 - Urinary tract infection, site not specified; B95.2 - Enterococcus as the cause of diseases classified elsewhere Status: Acute Assessment and Plan: add nitrofurantoin Subjective Date/time seen: 07/05/20 13:33 Interval history: Patient seen and examined Patient was admitted to the hospital would shortness of breath was found to have interstitial lung disease and possible physiological shunt [id number] secondary to PFO pulmonology following today blood pressure was soft IV Lasix was DC lisinopril was stopped Patient still requiring high oxygen Patient feels weak short of breath Patient denies fever headache chest pain I am seeing the patient for shortness of breath Exam Narrative: Exam Narrative: Alert Chest decreased air entry bilateral on high-flow oxygen Abdomen nontender nondistended CVS S1 + S2 Negative Lower extremity edema Objective Data Vital Signs Vital Signs: Vital Signs - 24 hr 07/04/20 14:00 07/04/20 15:17 07/04/20 15:24 Temperature Pulse Rate 86 81 90 Respiratory Rate 20 22 H Blood Pressure Pulse Oximetry 87 L 07/04/20 16:00 07/04/20 18:00 07/04/20 19:35 Temperature 97.2 F L 97.4 F L Pulse Rate 80 88 72 Respiratory Rate 18 20 Blood Pressure 112/65 119/70 Pulse Oximetry 94 93 07/04/20 20:00 07/04/20 20:05 07/04/20 20:15 Temperature Pulse Rate 71 72 71 Respiratory Rate 18 18 Blood Pressure Pulse Oximetry 91 92 07/04/20 22:00 07/04/20 23:33 07/05/20 00:00 Temperature 97.8 F Pulse Rate 65 70 61 Respiratory Rate 18 Blood Pressure 126/71 Pulse Oximetry 97 97 07/05/20 02:00 07/05/20 02:02 07/05/20 02:12 Temperature Pulse Rate 70 69 67 Respiratory Rate 18 18 Blood Pressure Pulse Oximetry 93 07/05/20 04:00 07/05/20 06:00 07/05/20 08:00 Temperature 97.8 F 98.1 F Pulse Rate 60 65 58 L Respiratory Rate 16 24 H Blood Pressure 123/86 109/82 Pulse Oximetry 96 91 07/05/20 09:01 07/05/20 09:04 07/05/20 09:11 Temper
[2020-07-05] MEDS: DOCUSATE SODIUM LIQ 100 MG/10 ML UDC 50 MG PO (17:51)
[2020-07-05] MEDS: AMITRIPTYLINE HCL 10 MG TABLET PO (21:00)
[2020-07-05] MEDS: MELATONIN 5 MG TABLET PO (21:40)
[2020-07-06] VITALS (18 sets, daily range): BP systolic 101–113; BP diastolic 65–75; PULSE 60–81; RESP 16–24; TEMP 36.1–36.5; O2SAT 90–95
--- NOTE | 2020-07-06 02:48 | PC.NURSE ---
Jose from [place] called at 0245 for patient condition update and most recent set of vitals. No bed available at this time. Patient to transfer to [place] once bed is available.
[2020-07-06] MEDS: VITAMIN B COMPLEX CAPSULE 1 CAP PO (08:18)
[2020-07-06] MEDS: ASPIRIN 81 MG ENTERIC TABLET PO (08:19)
[2020-07-06] MEDS: MAGNESIUM OXIDE 200 MG TABLET PO ×2 (08:19→21:19)
[2020-07-06] MEDS: PRAMIPEXOLE 0.25 MG TABLET PO ×2 (08:19→16:26)
[2020-07-06] MEDS: NITROFURANTOIN MONOHYD MACROCR 100 MG CAP PO (08:19)
[2020-07-06] MEDS: MULTIVITAMINS THERAPEUTIC TAB (*BKC) 1 TABLET PO (08:19)
[2020-07-06] MEDS: POTASSIUM CHLORIDE 20 MEQ PACKET (FOR LIQUID) PO (08:19)
[2020-07-06] MEDS: amLODIPine BESYLATE 2.5 MG TABLET PO (08:20)
[2020-07-06] MEDS: PANTOPRAZOLE SODIUM IV 40 MG VIAL IV PUSH (08:20)
--- NOTE | 2020-07-06 10:44 | PM.PNPUL ---
Progress Note: A&P Assessment and Plan (1) Acute respiratory failure with hypoxemia: Code(s): J96.01 - Acute respiratory failure with hypoxia Status: Acute Assessment and Plan: 07/02 She has no P.E., COPD, Asthma, ILD, pneumonia or other discernable pulmonary reasons for profound hypoxia. Bilateral atelectesis is minimal and does not offer an explaination. Cardiac shunting rather than pulmonary shunting is highly suspected given history of PFO. Although PFO catheter closure testing done in 2015 at [place] did not show benefit, I feel this needs to be reexamined. Other causes such as Eustacian valve, pulmonary venous connection or development of pulmonary hypertension with right to left shunting should be examined. 07/03 My first day seeing patient. Consider pulmonary AVM as cause of hypoxemia, would need angiogram. No pulmonary pressures measures on echo from 07/01. She tells me that she will not have any additional testing on heart at [facility]. 07/04 Patient states that she is essentially unchanged. She denies any rest dyspnea on exertion but states that her cough and phlegm are still increased compared to her baseline. Patient is on high-flow airflow 50 L with 80% FiO2 and saturations 92%. ABG on theses etting documents hypoxia is real (7.50/29/49/89%). I spoke with daughter, Elizabeth, and again strongly recommended that patient be transferred to higher level of care for refractory hypoxemia with history of PFO. Despite 7 days at [place] she is on high flow oxygen 50L and 80% at this time. Daughter will discuss transfer with remainder of family and let us know. I did mention that alternative option is hospice. Referred to [place] later in day. 07/05 No clinical change. On 50L and 80% FIO2 high flow with sats 96%. Awaiting transfer to [place] for further evaluation 07/06 I will order V/Q with brain and kidney scan afterwards to document shunt. (2) Acute bronchitis: Code(s): J20.9 - Acute bronchitis, unspecified Status: Acute Assessment and Plan: Group A Streptococcus in throat culture. 07/02 Resolving, continue Levaquin as prescribed. No evidence of pneumonia. Day 4 07/03 states less cough and phlegm is now clear. Continue levaquin. Day . 07/04 Day 6 levaquin, cough and phlegm improved but increased to usual for her. 07/05 No clinical change, phlegm and cough back to baseline. Day 7 levaquin for bronchitis and DC levaquin today. Never with wheezing this admission and was not on bronchodilators at home and will DC ipratroprium today. 07/06 stable, DC levalbuterol today (3) PFO (patent foramen ovale): Code(s): Q21.1 - Atrial septal defect Status: Chronic Assessment and Plan: 07/02 She has presence of shunt physiology with increasing hypoxemia but no obvious lung parenchymal causes and negative CTA for PE. This is very difficult to treat. Laying down versus sitting up may help also will try a dose of Lasix to see if we can decrease the right atrial pressure a bit which may help as well. Otherwise continue high-flow oxygen to maintain O2 saturations at 88% or above. 07/03 Previous work up in 2016 was wihtout change in hypoxia with PFO occluded for 5 minutes. Per patient no additional testing to be done per patient. 07/04 Concern for shunt and I recommend transfer to [place] for re-evaluation as she has changed clinically since 2016 when last evaluation performed. Family to decide. I spoke with Dr. Macedo regarding my recommendation for transfer. Listed for transfer later in day. 07/05 Agree with transfer when bed available. 07/06 Check V/Q to assess shunt. awaiting transfer to [place]. Subjective Date/time seen: 07/06/20 10:44 Interval history: 06/[address] Mayo This is an 84-year-old female well known to me with a history of PFO with chronic hypoxemia and polycythemia. She presents after a 1-2 day history of cough productive of thick sputum that began suddenly. She denied sore
[2020-07-06] MEDS: ATORVASTATIN 20 MG TABLET PO (11:13)
[2020-07-06] MEDS: ENOXAPARIN 40 MG/0.4 ML SYRINGE SUB-Q (11:13)
--- NOTE | 2020-07-06 12:25 | PM.IMPN ---
Progress Note: A&P Assessment and Plan (1) Acute on chronic respiratory failure with hypoxemia: Code(s): J96.21 - Acute and chronic respiratory failure with hypoxia Status: Acute Assessment and Plan: Patient is usually on oxygen at home 2 L by nasal cannula she is supposed to wear continuously however patient uses only after the she gets short of breath after doing her activities of daily living she will wear it on and off. Currently on high-flow oxygen presence of shunt physiology with increasing hypoxemia, no PE no evidence of pneumonia COPD or asthma high concern for arteriovenous shunt Possible transfer to [facility] (2) Right lower lobe pulmonary infiltrate: Code(s): R91.8 - Other nonspecific abnormal finding of lung field Status: Acute Assessment and Plan: C most likely related to atelectasis no evidence of pneumonia current pulmonology (3) Idiopathic peripheral neuropathy: Code(s): G60.9 - Hereditary and idiopathic neuropathy, unspecified Status: Acute Assessment and Plan: Continue home meds worsening (4) PFO (patent foramen ovale): Code(s): Q21.1 - Atrial septal defect Status: Chronic Assessment and Plan: No murmurs auscultated at physical exam Continue to monitor Patient may benefit from evaluation at [facility] as she had closure of the PFO 2016 (5) Hypertension: Code(s): I10 - Essential (primary) hypertension Status: Acute Assessment and Plan: DC IV Lasix DC lisinopril if no improvement will give normal saline bolus 500 mL Continue to monitor (6) Restless legs syndrome: Code(s): G25.81 - Restless legs syndrome Status: Acute Assessment and Plan: Continue home meds continue to monitor (7) Thoracic aortic aneurysm: Code(s): I71.2 - Thoracic aortic aneurysm, without rupture Status: Acute Assessment and Plan: Continue to monitor try and keep blood pressure at 130/80 (8) Enterococcus UTI: Code(s): N39.0 - Urinary tract infection, site not specified; B95.2 - Enterococcus as the cause of diseases classified elsewhere Status: Acute Assessment and Plan: Completed 7 days course of nitrofurantoin Subjective Date/time seen: 07/06/20 12:25 Interval history: Patient seen and examined Patient was admitted to the hospital would shortness of breath was found to have interstitial lung disease and possible physiological shunt [id number] secondary to PFO pulmonology Patient still requiring high oxygen Patient feels weak short of breath No improvement Patient denies fever headache chest pain I am seeing the patient for shortness of breath Exam Narrative: Exam Narrative: Alert Chest decreased air entry bilateral on high-flow oxygen Abdomen nontender nondistended CVS S1 + S2 Negative Lower extremity edema Objective Data Vital Signs Vital Signs: Vital Signs - 24 hr 07/05/20 13:54 07/05/20 14:00 07/05/20 14:11 Temperature Pulse Rate 81 84 80 Respiratory Rate 20 20 Blood Pressure Pulse Oximetry 89 L 07/05/20 16:00 07/05/20 18:00 07/05/20 19:44 Temperature 98.2 F 97.6 F Pulse Rate 82 79 76 Respiratory Rate 22 H 22 H Blood Pressure 103/73 111/74 Pulse Oximetry 86 L 92 07/05/20 20:00 07/05/20 20:26 07/05/20 20:27 Temperature Pulse Rate 73 71 Respiratory Rate 20 Blood Pressure Pulse Oximetry 91 91 07/05/20 20:36 07/05/20 22:00 07/05/20 23:37 Temperature 98.1 F Pulse Rate 70 60 65 Respiratory Rate 18 18 Blood Pressure 110/82 Pulse Oximetry 91 07/06/20 00:00 07/06/20 01:50 07/06/20 01:53 Temperature Pulse Rate 65 66 Respiratory Rate 18 Blood Pressure Pulse Oximetry 93 90 07/06/20 02:00 07/06/20 04:00 07/06/20 06:00 Temperature 97.7 F Pulse Rate 64 68 62 Respiratory Rate 18 16 Blood Pressure 113/75 Pulse Oximetry 93 07/06/20 08:00 07/06/20 09:07 07/06/20 09:12
[2020-07-06] MEDS: DOCUSATE SODIUM LIQ 100 MG/10 ML UDC 50 MG PO (16:26)
[2020-07-06] MEDS: MELATONIN 5 MG TABLET PO (21:19)
[2020-07-06] MEDS: AMITRIPTYLINE HCL 10 MG TABLET PO (21:19)
[2020-07-07] VITALS (20 sets, daily range): BP systolic 112–127; BP diastolic 63–92; PULSE 60–90; RESP 16–22; TEMP 36.1–36.6; O2SAT 91–98
--- NOTE | 2020-07-07 01:52 | PC.NURSE ---
Alyson with [facility] called for patient status update and most recent set of vitals at 0141. No bed available at this time. Patient to transfer when bed becomes available.
[2020-07-07] MEDS: POTASSIUM CHLORIDE 20 MEQ PACKET (FOR LIQUID) PO (09:12)
[2020-07-07] MEDS: MAGNESIUM OXIDE 200 MG TABLET PO ×2 (09:13→19:56)
[2020-07-07] MEDS: ATORVASTATIN 20 MG TABLET PO (09:13)
[2020-07-07] MEDS: MULTIVITAMINS THERAPEUTIC TAB (*BKC) 1 TABLET PO (09:13)
[2020-07-07] MEDS: amLODIPine BESYLATE 2.5 MG TABLET PO (09:13)
[2020-07-07] MEDS: ASPIRIN 81 MG ENTERIC TABLET PO (09:13)
[2020-07-07] MEDS: PANTOPRAZOLE SODIUM IV 40 MG VIAL IV PUSH (09:13)
[2020-07-07] MEDS: PRAMIPEXOLE 0.25 MG TABLET PO ×2 (09:13→17:35)
[2020-07-07] MEDS: ENOXAPARIN 40 MG/0.4 ML SYRINGE SUB-Q (09:13)
[2020-07-07] MEDS: VITAMIN B COMPLEX CAPSULE 1 CAP PO (09:13)
--- NOTE | 2020-07-07 10:21 | PM.PNPUL ---
Progress Note: A&P Assessment and Plan (1) Acute respiratory failure with hypoxemia: Code(s): J96.01 - Acute respiratory failure with hypoxia Status: Acute Assessment and Plan: 07/02 She has no P.E., COPD, Asthma, ILD, pneumonia or other discernable pulmonary reasons for profound hypoxia. Bilateral atelectesis is minimal and does not offer an explaination. Cardiac shunting rather than pulmonary shunting is highly suspected given history of PFO. Although PFO catheter closure testing done in 2015 at [place] did not show benefit, I feel this needs to be reexamined. Other causes such as Eustacian valve, pulmonary venous connection or development of pulmonary hypertension with right to left shunting should be examined. 07/03 My first day seeing patient. Consider pulmonary AVM as cause of hypoxemia, would need angiogram. No pulmonary pressures measures on echo from 07/01. She tells me that she will not have any additional testing on heart at [facility]. 07/04 Patient states that she is essentially unchanged. She denies any rest dyspnea on exertion but states that her cough and phlegm are still increased compared to her baseline. Patient is on high-flow airflow 50 L with 80% FiO2 and saturations 92%. ABG on theses etting documents hypoxia is real (7.50/29/49/89%). I spoke with daughter, Elizabeth, and again strongly recommended that patient be transferred to higher level of care for refractory hypoxemia with history of PFO. Despite 7 days at [place] she is on high flow oxygen 50L and 80% at this time. Daughter will discuss transfer with remainder of family and let us know. I did mention that alternative option is hospice. Referred to [place] later in day. 07/05 No clinical change. On 50L and 80% FIO2 high flow with sats 96%. Awaiting transfer to [place] for further evaluation 07/06 I will order V/Q with brain and kidney scan afterwards to document shunt. 07/07 V/Q with no uptake brain or kidneys, no PE. Currenlty on NC 6 L with sats 97, wean as toelrated. At baseline she tells me she is wearing 2 L NC at night and 2-3 L during day when she feels like she needs it. At times she measures her pulse oximeter on room air and the numbers are 89-97%. Once she is on acceptable oxygen levels will DC home. I will perform overnight oximetry tonight on 6 L NC. (2) Acute bronchitis: Code(s): J20.9 - Acute bronchitis, unspecified Status: Acute Assessment and Plan: Group A Streptococcus in throat culture. 07/02 Resolving, continue Levaquin as prescribed. No evidence of pneumonia. Day 4 07/03 states less cough and phlegm is now clear. Continue levaquin. Day 5. 07/04 Day 6 levaquin, cough and phlegm improved but increased to usual for her. 07/05 No clinical change, phlegm and cough back to baseline. Day 7 levaquin for bronchitis and DC levaquin today. Never with wheezing this admission and was not on bronchodilators at home and will DC ipratroprium today. 07/06 stable, DC levalbuterol today (3) PFO (patent foramen ovale): Code(s): Q21.1 - Atrial septal defect Status: Chronic Assessment and Plan: 07/02 She has presence of shunt physiology with increasing hypoxemia but no obvious lung parenchymal causes and negative CTA for PE. This is very difficult to treat. Laying down versus sitting up may help also will try a dose of Lasix to see if we can decrease the right atrial pressure a bit which may help as well. Otherwise continue high-flow oxygen to maintain O2 saturations at 88% or above. 07/03 Previous work up in 2016 was wihtout change in hypoxia with PFO occluded for 5 minutes. Per patient no additional testing to be done per patient. 07/04 Concern for shunt and I recommend transfer to [place] for re-evaluation as she has changed clinically since 2016 when last evaluation performed. Family to decide. I spoke with Dr. Macedo regarding my recommendation for transfer. Listed for transfer later in day. 07/05 Agree with transfer when bed
--- NOTE | 2020-07-07 10:57 | PM.IMPN ---
Progress Note: A&P Assessment and Plan (1) Acute on chronic respiratory failure with hypoxemia: Code(s): J96.21 - Acute and chronic respiratory failure with hypoxia Status: Acute Assessment and Plan: Patient is usually on oxygen at home 2 L by nasal cannula she is supposed to wear continuously however patient uses only after the she gets short of breath after doing her activities of daily living she will wear it on and off. Currently on 6 L oxygen oxygen presence of shunt physiology with increasing hypoxemia, no PE no evidence of pneumonia COPD or asthma high concern for arteriovenous shunt Possible transfer to [facility] will re-evaluate in a.m. (2) Right lower lobe pulmonary infiltrate: Code(s): R91.8 - Other nonspecific abnormal finding of lung field Status: Acute Assessment and Plan: most likely related to atelectasis no evidence of pneumonia current pulmonology (3) Idiopathic peripheral neuropathy: Code(s): G60.9 - Hereditary and idiopathic neuropathy, unspecified Status: Acute Assessment and Plan: Continue home meds worsening (4) PFO (patent foramen ovale): Code(s): Q21.1 - Atrial septal defect Status: Chronic Assessment and Plan: No murmurs auscultated at physical exam Continue to monitor Patient may benefit from evaluation at [facility] as she had closure of the PFO 2016 echo pending final report possible shunt (5) Hypertension: Code(s): I10 - Essential (primary) hypertension Status: Acute Assessment and Plan: DC IV Lasix DC lisinopril Continue to monitor (6) Restless legs syndrome: Code(s): G25.81 - Restless legs syndrome Status: Acute Assessment and Plan: Continue home meds continue to monitor (7) Thoracic aortic aneurysm: Code(s): I71.2 - Thoracic aortic aneurysm, without rupture Status: Acute Assessment and Plan: Continue to monitor try and keep blood pressure at 130/80 (8) Enterococcus UTI: Code(s): N39.0 - Urinary tract infection, site not specified; B95.2 - Enterococcus as the cause of diseases classified elsewhere Status: Acute Assessment and Plan: Completed 7 days course of nitrofurantoin Subjective Date/time seen: 07/07/20 10:57 Interval history: Patient seen and examined Patient was admitted to the hospital would shortness of breath was found to have interstitial lung disease and possible physiological shunt [id number] secondary to PFO pulmonology Patient still requiring high oxygen Patient feels weak short of breath Discussed with occupational therapy department chair patient currently on 6 L of oxygen improved from yesterday V/Q scan nonsignificant According to the occupational therapy department chair echo shows positive shunt Baseline oxygen is 3 L Patient denies fever headache chest pain I am seeing the patient for shortness of breath Exam Narrative: Exam Narrative: Alert Chest decreased air entry bilateral on high-flow oxygen Abdomen nontender nondistended CVS S1 + S2 Negative Lower extremity edema Objective Data Vital Signs Vital Signs: Vital Signs - 24 hr 07/06/20 12:00 07/06/20 14:00 07/06/20 16:00 Temperature 96.9 F L 97.4 F L Pulse Rate 73 77 68 Respiratory Rate 20 24 H Blood Pressure 101/68 107/65 Pulse Oximetry 92 90 07/06/20 18:00 07/06/20 19:53 07/06/20 20:00 Temperature 97.4 F L Pulse Rate 73 81 77 Respiratory Rate 18 Blood Pressure 111/73 Pulse Oximetry 90 91 07/06/20 22:00 07/06/20 23:21 07/07/20 00:00 Temperature 97.5 F L Pulse Rate 60 75 63 Respiratory Rate 18 Blood Pressure 110/74 Pulse Oximetry 95 95 07/07/20 02:00 07/07/20 04:00 07/07/20 06:00 Temperature 97.8 F Pulse Rate 60 61 67 Respiratory Rate 18 Blood Pressure 127/74 Pulse Oximetry 92 07/07/20 08:00 07/07/20 08:40 07/07/20 08:57 Temperature 97.4 F L Pulse Rate 65 Respiratory Rate 22 H Blood Pressure 122/74 Pulse Oxi
--- NOTE | 2020-07-07 12:01 | PCDIET ---
Nutrition Follow-Up Complete: Nutrition Diagnosis: Inadequate oral intake related to decreased appetite as evidenced by intakes 65% of meals since admission with MD order for Ensure Enlive (350kcal, 20g protein) daily. Nutrition Goal: Patient to consume 50% of meals/supplements or greater. Goal met. Patient consuming 75-100% of meals on regular diet with Ensure Enlive BID. Last recorded weight is 70.8 kg which is stable with last review. Bowel Motility: Last documented BM on 07/06/20 x 1. Labs Reviewed: No new BMP available. Meds Noted: Norvasc, Lipitor, Colace, Lovenox, Mag-Ox, MVI, Protonix, KCl, Vitamin B Complex Additional Notes: No documented skin breakdown. Patient awaiting transfer to outside hospital. Will continue to monitor with same goal. Nutrition Monitoring and Evaluation: Follow up in 5 days.
--- NOTE | 2020-07-07 15:23 | ECHO_ITS ---
Patient Info Name: Allison Gong Age: 84 years : 1935 Gender: Female Ht: 62 in Wt: 150 lbs BSA: 1.74 m2 HR: 68 bpm BP: 122 / 74 mmHg Heart Rhythm: Sinus Rhythm Technical Quality: Good Exam Date: 07/07/2020 8:45 AM Exam Location: [facility] Card Pulmonary Patient Status: Inpatient Admit Date: 06/27/2020 Staff Ordering Physician: Estefani Soliman M.A., MD Jitterbug Operator: Remy Bhatt RDCS, RT Attending Provider: Seferino Josue MD Referring Physician: Rustam BAZZI; Exam Type: CA echo limited w bubble study Study Info Indications R06.02 - Shortness of breath Limited two-dimensional transthoracic echocardiogram is performed with agitated saline. Summary 1. Saline contrast injection done in the apical 4 chamber view positive for R> L shunt at the level of the PFO. 2. Pt has previously documented PFO. Report Signatures
[2020-07-07] MEDS: DOCUSATE SODIUM LIQ 100 MG/10 ML UDC 50 MG PO (17:35)
[2020-07-07] MEDS: AMITRIPTYLINE HCL 10 MG TABLET PO (19:56)
[2020-07-07] MEDS: MELATONIN 5 MG TABLET PO (19:56)
--- NOTE | 2020-07-07 23:29 | PCRCNOTE ---
patient was unable to tolerate the apnea study with 6L NC per order; the patient was complaining of dryness and burning within 30 minutes of being placed on the apnea study; ApneaLink studies are normally completed on 4L of oxygen or less; the liter flow can be increased, but the results will not be complete per the policy regarding ApneaLink studies
[2020-07-08] VITALS (17 sets, daily range): BP systolic 103–126; BP diastolic 58–79; PULSE 62–81; RESP 14–18; TEMP 35.7–36.6; O2SAT 83–95
[2020-07-08] MEDS: ATORVASTATIN 20 MG TABLET PO (08:50)
[2020-07-08] MEDS: MULTIVITAMINS THERAPEUTIC TAB (*BKC) 1 TABLET PO (08:50)
[2020-07-08] MEDS: MAGNESIUM OXIDE 200 MG TABLET PO ×2 (08:50→22:27)
[2020-07-08] MEDS: PRAMIPEXOLE 0.25 MG TABLET PO ×2 (08:50→17:59)
[2020-07-08] MEDS: ASPIRIN 81 MG ENTERIC TABLET PO (08:50)
[2020-07-08] MEDS: VITAMIN B COMPLEX CAPSULE 1 CAP PO (08:51)
[2020-07-08] MEDS: amLODIPine BESYLATE 2.5 MG TABLET PO (08:51)
[2020-07-08] MEDS: POTASSIUM CHLORIDE 20 MEQ PACKET (FOR LIQUID) PO (08:51)
[2020-07-08] MEDS: PANTOPRAZOLE SODIUM IV 40 MG VIAL IV PUSH (08:57)
[2020-07-08] MEDS: ENOXAPARIN 40 MG/0.4 ML SYRINGE SUB-Q (08:57)
--- NOTE | 2020-07-08 10:04 | PM.IMPN ---
Progress Note: A&P Assessment and Plan (1) Acute on chronic respiratory failure with hypoxemia: Code(s): J96.21 - Acute and chronic respiratory failure with hypoxia Status: Acute Assessment and Plan: Patient is usually on oxygen at home 2 L by nasal cannula she is supposed to wear continuously however patient uses only after the she gets short of breath after doing her activities of daily living she will wear it on and off. Currently on 6 L oxygen oxygen presence of shunt physiology with increasing hypoxemia, no PE no evidence of pneumonia COPD or asthma high concern for arteriovenous shunt Continue current management [facility] versus discharge home with home health on Friday if patient continued to improve (2) Right lower lobe pulmonary infiltrate: Code(s): R91.8 - Other nonspecific abnormal finding of lung field Status: Acute Assessment and Plan: most likely related to atelectasis no evidence of pneumonia current pulmonology (3) Idiopathic peripheral neuropathy: Code(s): G60.9 - Hereditary and idiopathic neuropathy, unspecified Status: Acute Assessment and Plan: Continue home meds worsening (4) PFO (patent foramen ovale): Code(s): Q21.1 - Atrial septal defect Status: Chronic Assessment and Plan: No murmurs auscultated at physical exam Continue to monitor Patient may benefit from evaluation at [facility] as she had closure of the PFO 2016 echo pending final report possible shunt (5) Hypertension: Code(s): I10 - Essential (primary) hypertension Status: Acute Assessment and Plan: DC IV Lasix DC lisinopril Continue to monitor (6) Restless legs syndrome: Code(s): G25.81 - Restless legs syndrome Status: Acute Assessment and Plan: Continue home meds continue to monitor (7) Thoracic aortic aneurysm: Code(s): I71.2 - Thoracic aortic aneurysm, without rupture Status: Acute Assessment and Plan: Continue to monitor try and keep blood pressure at 130/80 (8) Enterococcus UTI: Code(s): N39.0 - Urinary tract infection, site not specified; B95.2 - Enterococcus as the cause of diseases classified elsewhere Status: Acute Assessment and Plan: Completed 7 days course of nitrofurantoin Subjective Date/time seen: 07/08/20 10:04 Interval history: Patient seen and examined Patient was admitted to the hospital would shortness of breath was found to have interstitial lung disease and possible physiological shunt [id number] secondary to PFO pulmonology Patient still requiring high oxygen Patient feels weak short of breath Oxygen requirement has significantly improved patient currently on nasal cannula V/Q scan nonsignificant Echo positive for [id number]-rp-[id number] shunt According to the cut off saw operator echo shows positive shunt Baseline oxygen is 3 L Patient denies fever headache chest pain I am seeing the patient for shortness of breath Exam Narrative: Exam Narrative: Alert Chest decreased air entry bilateral on high-flow oxygen Abdomen nontender nondistended CVS S1 + S2 Negative Lower extremity edema Objective Data Vital Signs Vital Signs: Vital Signs - 24 hr 07/07/20 12:00 07/07/20 13:37 07/07/20 14:00 Temperature 96.9 F L Pulse Rate 90 67 Respiratory Rate 20 Blood Pressure 117/92 H Pulse Oximetry 92 98 07/07/20 16:00 07/07/20 18:00 07/07/20 20:00 Temperature 97.4 F L 98 F Pulse Rate 67 79 85 Respiratory Rate 16 18 Blood Pressure 112/86 117/68 Pulse Oximetry 92 91 07/07/20 20:50 07/07/20 22:00 07/07/20 22:20 Temperature Pulse Rate 65 Respiratory Rate Blood Pressure Pulse Oximetry 92 92 07/07/20 23:41 07/07/20 23:53 07/08/20 00:00 Temperature 97.5 F L Pulse Rate 66 64 Respiratory Rate 16 Blood Pressure 122/63 Pulse Oximetry 93 93 07/08/20 01:58 07/08/20 04:00 07/08/20 05:53 Temperature 97.6
--- NOTE | 2020-07-08 10:53 | HOMEO2EVAL ---
Evaluation was performed at [facility] Home Oxygen Evaluation RC: Home Oxygen (O2) Evaluation Start: 07/08/20 09:56 Freq: ONCE Status: Active Protocol: RPE Activity Type Activity Date Activity User E-Sign Co-Sign Detail Recorded Client Recorded Date Recorded By Document 07/08/20 10:25 [email or web address] [email or web address] 07/08/20 10:51 SDH Document 07/08/20 10:27 [email or web address] [email or web address] 07/08/20 10:51 SDH Document 07/08/20 10:30 [email or web address] [email or web address] 07/08/20 10:51 SDH Document 07/08/20 10:32 [email or web address] [email or web address] 07/08/20 10:51 SDH Document 07/08/20 10:35 [email or web address] [email or web address] 07/08/20 10:53 SDH Document 07/08/20 10:37 [email or web address] [email or web address] 07/08/20 10:53 SDH 07/08/20 07/08/20 07/08/20 10:25 10:27 10:30 Home O2 Evaluation Test Phase Resting Resting Resting Oxygen Delivery Room Air Nasal Cannula Nasal Cannula Oxygen Flow Rate (L/min) 1 2 Pulse Oximetry (90-100 %) 86 L 88 L 92 Pulse Rate (60-100 beats/min) 75 Activity Tolerance Rating of Perceived Dyspnea (PD) Ambulation Distance (feet) Home Oxygen Evaluation Comments Treatment Charges 07/08/20 07/08/20 07/08/20 10:32 10:35 10:37 Home O2 Evaluation Test Phase Exercise Exercise Exercise Oxygen Delivery Nasal Cannula Nasal Cannula Nasal Cannula Oxygen Flow Rate (L/min) 2 3 4 Pulse Oximetry (90-100 %) 83 L 87 L 91 Pulse Rate (60-100 beats/min) Activity Tolerance Good Good Rating of Perceived Dyspnea (PD) +2 Mild, Some +2 Mild, Some +2 Mild, Some Difficulty, Difficulty, Difficulty, Noticeable to Noticeable to Noticeable to the Observer the Observer the Observer Ambulation Distance (feet) 280 Home Oxygen Evaluation Comments 2LPM at rest, 4LPM with activity Treatment Charges O2 Evaluation - Inpatient
--- NOTE | 2020-07-08 11:04 | PCRCNOTE ---
PT EVALUATED FOR HOME OXYGEN WITH REQUIREMENTS OF 2LPM AT REST AND 4LPM WITH ACTIVITY. UPDATED REQUIREMENTS FAXED TO DR HUI LEGGETT UPDATED.
--- NOTE | 2020-07-08 12:17 | PM.PNPUL ---
Progress Note: A&P Assessment and Plan (1) Acute respiratory failure with hypoxemia: Code(s): J96.01 - Acute respiratory failure with hypoxia Status: Acute Assessment and Plan: 07/02 She has no P.E., COPD, Asthma, ILD, pneumonia or other discernable pulmonary reasons for profound hypoxia. Bilateral atelectesis is minimal and does not offer an explaination. Cardiac shunting rather than pulmonary shunting is highly suspected given history of PFO. Although PFO catheter closure testing done in 2015 at [place] did not show benefit, I feel this needs to be reexamined. Other causes such as Eustacian valve, pulmonary venous connection or development of pulmonary hypertension with right to left shunting should be examined. 07/03 My first day seeing patient. Consider pulmonary AVM as cause of hypoxemia, would need angiogram. No pulmonary pressures measures on echo from 07/01. She tells me that she will not have any additional testing on heart at [facility]. 07/04 Patient states that she is essentially unchanged. She denies any rest dyspnea on exertion but states that her cough and phlegm are still increased compared to her baseline. Patient is on high-flow airflow 50 L with 80% FiO2 and saturations 92%. ABG on theses etting documents hypoxia is real (7.50/29/49/89%). I spoke with daughter, Elizabeth, and again strongly recommended that patient be transferred to higher level of care for refractory hypoxemia with history of PFO. Despite 7 days at [place] she is on high flow oxygen 50L and 80% at this time. Daughter will discuss transfer with remainder of family and let us know. I did mention that alternative option is hospice. Referred to [facility] later in day. 07/05 No clinical change. On 50L and 80% FIO2 high flow with sats 96%. Awaiting transfer to [place] for further evaluation 07/06 I will order V/Q with brain and kidney scan afterwards to document shunt. 07/07 V/Q with no uptake brain or kidneys, no PE. Currenlty on NC 6 L with sats 97, wean as toelrated. At baseline she tells me she is wearing 2 L NC at night and 2-3 L during day when she feels like she needs it. At times she measures her pulse oximeter on room air and the numbers are 89-97%. Once she is on acceptable oxygen levels will DC home. I will perform overnight oximetry tonight on 6 L NC. 07/08 Patient feels well, hoarse voice improved off high flow oxygen. Currently weaned down to 4 L NC and saturations 95-97%. Home O2 assessment demonstrated she required 2 L with rest and 4 L with ambulation. Would place on 4 L at night as well. (2) Acute bronchitis: Code(s): J20.9 - Acute bronchitis, unspecified Status: Acute Assessment and Plan: Group A Streptococcus in throat culture. 07/02 Resolving, continue Levaquin as prescribed. No evidence of pneumonia. Day 4 07/03 states less cough and phlegm is now clear. Continue levaquin. Day 5. 07/04 Day 6 levaquin, cough and phlegm improved but increased to usual for her. 07/05 No clinical change, phlegm and cough back to baseline. Day 7 levaquin for bronchitis and DC levaquin today. Never with wheezing this admission and was not on bronchodilators at home and will DC ipratroprium today. 07/06 stable, DC levalbuterol today (3) PFO (patent foramen ovale): Code(s): Q21.1 - Atrial septal defect Status: Chronic Assessment and Plan: 07/02 She has presence of shunt physiology with increasing hypoxemia but no obvious lung parenchymal causes and negative CTA for PE. This is very difficult to treat. Laying down versus sitting up may help also will try a dose of Lasix to see if we can decrease the right atrial pressure a bit which may help as well. Otherwise continue high-flow oxygen to maintain O2 saturations at 88% or above. 07/03 Previous work up in 2016 was wihtout change in hypoxia with PFO occluded for 5 minutes. Per patient no additional testing to be done per patient. 07/04 Concern for shunt and I recommend transfer to
--- NOTE | 2020-07-08 16:43 | PC.NURSE ---
This patient, Allison Gong, was transferred to [[facility]] on 07/08/20 at 1638. Personal belongings sent with patient. Report given to [Julianna ]. Appropriate documentation sent with patient.
[2020-07-08] MEDS: DOCUSATE SODIUM LIQ 100 MG/10 ML UDC 50 MG PO (17:58)
[2020-07-08] MEDS: MELATONIN 5 MG TABLET PO (22:26)
[2020-07-08] MEDS: AMITRIPTYLINE HCL 10 MG TABLET PO (22:27)
[2020-07-09 05:48] VITALS: BP 137/63; PULSE 62; RESP 18; TEMP 35.7; O2SAT 95
[2020-07-09] MEDS: ENOXAPARIN 40 MG/0.4 ML SYRINGE SUB-Q (08:13)
[2020-07-09] MEDS: VITAMIN B COMPLEX CAPSULE 1 CAP PO (08:13)
[2020-07-09] MEDS: PRAMIPEXOLE 0.25 MG TABLET PO (08:13)
[2020-07-09] MEDS: ATORVASTATIN 20 MG TABLET PO (08:14)
[2020-07-09] MEDS: MAGNESIUM OXIDE 200 MG TABLET PO (08:14)
[2020-07-09] MEDS: amLODIPine BESYLATE 2.5 MG TABLET PO (08:14)
[2020-07-09] MEDS: POTASSIUM CHLORIDE 20 MEQ PACKET (FOR LIQUID) PO (08:14)
[2020-07-09] MEDS: PANTOPRAZOLE SODIUM IV 40 MG VIAL IV PUSH (08:14)
[2020-07-09] MEDS: ASPIRIN 81 MG ENTERIC TABLET PO (08:14)
[2020-07-09] MEDS: MULTIVITAMINS THERAPEUTIC TAB (*BKC) 1 TABLET PO (08:14)
--- NOTE | 2020-07-09 09:11 | PM.DS ---
DS: Admitting Diagnosis Admitting Diagnosis Admitting Diagnosis: Shortness of breath DS: Discharge Diagnosis Discharge Diagnosis (1) Acute on chronic respiratory failure with hypoxemia: Code(s): J96.21 - Acute and chronic respiratory failure with hypoxia Status: Acute Assessment and Plan: Patient is usually on oxygen at home 2 L by nasal cannula she is supposed to wear continuously however patient uses only after the she gets short of breath after doing her activities of daily living she will wear it on and off. During hospitalization patient requires high-flow nasal cannula Currently on 6 L oxygen oxygen presence of shunt physiology with increasing hypoxemia, no PE no evidence of pneumonia COPD or asthma high concern for arteriovenous shunt Most likely acute on top of chronic respiratory failure related to viral bronchitis mucus plug atelectasis and [id number]-[id number] intracardiac shunt plan to follow-up with patient established salvage repairer as outpatient Currently patient on 2 L of oxygen (2) Right lower lobe pulmonary infiltrate: Code(s): R91.8 - Other nonspecific abnormal finding of lung field Status: Acute Assessment and Plan: most likely related to atelectasis no evidence of pneumonia most likely atelectasis (3) Idiopathic peripheral neuropathy: Code(s): G60.9 - Hereditary and idiopathic neuropathy, unspecified Status: Acute Assessment and Plan: Continue home meds improved (4) PFO (patent foramen ovale): Code(s): Q21.1 - Atrial septal defect Status: Chronic Assessment and Plan: No murmurs auscultated at physical exam Continue to monitor Patient may benefit from evaluation at [facility] as she had evaluation of the PFO 2016 at [facility] follow-up as outpatient (5) Hypertension: Code(s): I10 - Essential (primary) hypertension Status: Acute Assessment and Plan: DC IV Lasix DC lisinopril Continue hydrochlorothiazide increase the dose of amlodipine to 5 mg daily (6) Restless legs syndrome: Code(s): G25.81 - Restless legs syndrome Status: Acute Assessment and Plan: Continue home meds continue to monitor (7) Thoracic aortic aneurysm: Code(s): I71.2 - Thoracic aortic aneurysm, without rupture Status: Acute Assessment and Plan: Continue to monitor try and keep blood pressure at 130/80 (8) Enterococcus UTI: Code(s): N39.0 - Urinary tract infection, site not specified; B95.2 - Enterococcus as the cause of diseases classified elsewhere Status: Acute Assessment and Plan: Completed 7 days course of nitrofurantoin DS: Summary Hospital Course Hospital Course: 84 years old female with past medical history of hypertension PFO presented to the hospital with sudden onset hypoxia and shortness of breath, pulmonology and cardiology was consulted, echo shows PFO with hjlvj-[id number] shunt, patient required high-flow oxygen, CT scan is negative for PE pneumonia, pulmonology recommendation for patient to be evaluated at [facility] as outpatient for the [id number] shunt, no concern for COPD asthma infiltrative lung disease or pneumonia as per pulmonology. Lisinopril was stopped as patient has worsening cough. I increased the dose of amlodipine to 5 mg daily. Goal blood pressure around 120/80. Time Spent with Patient Time attestation: Total time spent providing and/or coordinating discharge services: Discharge Plan Discharge Attending physician on discharge: Estefani Soliman M.A. Consulting providers: Anneliese Mayo ; Awais Pickard Discharging Clinician: Estefani Soliman M.A. Patient Disposition: Home Health Service Activity: other - see discharge instructions Diet: other - see discharge instructions Patient Instructions: Antibiotic Form, Urinary Tract Infection in Women (DC), Acute Bronchitis (GEN), Patent Foramen Ovale (DC) Stand Alone Forms:
== END 2020-07-09 12:20 | disposition home or self-care (01) | DRG 189 ==
LOC: ANHED 13:31 → ANHICU 19:58 → ANH3MEDSUR 06-29 10:24 → ANHIMU 06-30 07:31 → ANH3MED 07-09 09:07 → ANH3MEDSUR 07-12 09:16 → ANHICU 07-12 09:16 → ANHIMU 07-12 09:16
PROVIDERS: General Practice; Internal Medicine; Admitting Provider Family Medicine; Emergency Provider Emergency Medicine; PCP Family Medicine; Visit Provider Internal Medicine
DX: J96.21 Acute and chronic respiratory failure with hypoxia (principal); J84.9 Interstitial pulmonary disease, unspecified; Q21.1 Atrial septal defect; J98.11 Atelectasis; N39.0 Urinary tract infection, site not specified; B95.2 Enterococcus as the cause of diseases classified elsewhere; J20.9 Acute bronchitis, unspecified; Z99.81 Dependence on supplemental oxygen; Z20.822 Contact with and (suspected) exposure to COVID-19; E78.5 Hyperlipidemia, unspecified; I10 Essential (primary) hypertension; I71.2 Thoracic aortic aneurysm, without rupture; E87.6 Hypokalemia; D75.1 Secondary polycythemia; G60.9 Hereditary and idiopathic neuropathy, unspecified; G25.81 Restless legs syndrome; F32.9 Major depressive disorder, single episode, unspecified; Z79.82 Long term (current) use of aspirin; Z79.899 Other long term (current) drug therapy; Z85.3 Personal history of malignant neoplasm of breast; Z86.711 Personal history of pulmonary embolism; Z86.73 Personal history of transient ischemic attack (TIA), and cerebral infarction without residual deficits; Z88.0 Allergy status to penicillin
CPT/HCPCS: 36415; 36600; 71045; 71046; 71250; 71275; 78580; 80048; 80053; 81001; 82375; 82805; 83050; 83605; 83735; 83880; 85025; 85027; 85610; 85730; 87040; 87077; 87081; 87086; 87088; 87186; 87449; 87880; 87899; 93005; 93306; 93308; 94618; 94640; 94762; 96361; 96365; 96366; 96368; 96375; 97110; 97116; 97161; 97165; 97530; 97535; 99285; A9270; A9540; C9113; C9803; G0378; J0456; J1650; J1940; J1956; J3480; J7030; J7512; Q9967; U0003; U0005

== ENCOUNTER 2020-12-27 09:45 | Outpatient (CLI) | payer MEDICARE, SELFPAY ==
--- NOTE | ~2020-12-27 | XR_ITS ---
XR hip LT 2V w AP pelvis DATE: 12/27/2020 10:04 INDICATION: Left hip pain. No injury. TECHNIQUE: AP pelvis. AP and lateral views of left hip COMPARISON: 10/29/2018 bilateral hips FINDINGS: There is diffuse osteopenia. There are 3 pins in the proximal right femur for internal fixation of an old subcapital femoral neck fracture. Rotatory levoscoliosis and multilevel degenerative disc disease of the lumbar spine. The pubic symphysis and sacroiliac joints are intact. No pelvic fracture or bone destruction is detected. No fracture or dislocation, avascular necrosis or bone destruction of the left hip. Hip joint spaces are symmetric and relatively preserved. IMPRESSION: Status post right hip pinning for subcapital femoral neck fracture Diffuse osteopenia Rotatory levoscoliosis and multilevel degenerative disc disease of the lumbar spine Reviewed, dictated and finalized at location A. PROGRAMMER IMPRESSION: Status post right hip pinning for subcapital femoral neck fracture Diffuse osteopenia Rotatory levoscoliosis and multilevel degenerative disc disease of the lumbar s pine
== END 2020-12-27 09:46 | disposition home or self-care (01) ==
LOC: ANHIMG 09:47
PROVIDERS: PCP Family Medicine; Visit Provider Physician Assistant
DX: M85.852 Other specified disorders of bone density and structure, left thigh (principal); M51.36 Other intervertebral disc degeneration, lumbar region
CPT/HCPCS: 73502

== ENCOUNTER 2022-02-18 00:48 | Emergency (ER) | payer MEDICARE, SELFPAY ==
[2022-02-18] VITALS (32 sets, daily range): BP systolic 102–146; BP diastolic 52–121; PULSE 91–134; RESP 10–20; TEMP 36.6–37; O2SAT 66–100
--- NOTE | ~2022-02-18 | XR_ITS ---
EXAMINATION: XR chest 1V portable DATE: 02/18/2022 01:35 INDICATION: Gastrointestinal hemorrhage. TECHNIQUE: A single frontal view of the chest was obtained. COMPARISON: Chest single view 07/04/2020, chest CT 07/01/2020 FINDINGS: A calcified right lung nodule and calcified right hilar lymph nodes are consistent with old granulomatous disease. No pleural effusion or pneumothorax. Cardiomegaly is noted. Surgical clips in the right upper quadrant are likely from cholecystectomy. IMPRESSION: 1. Cardiomegaly. Reviewed, dictated and finalized at location A. TRIC METER REPAIRER APPRENTICE IMPRESSION: 1. Cardiomegaly.
[2022-02-18 01:23] LABS: Eosinophils Absolute Auto 0.3 K/mm3 (0-0.3); Eosinophils Percent Auto 1.5 % (0-4.4); Hematocrit 44.9 % (37.0-47.0); Hemoglobin 14.7 g/dL (12.0-15.0); Immature Granulocyte Absolute 2.06 K/mm3 (0.00-0.031); Immature Granulocyte Percent A 9.4 % (0-0.5); Lymphocytes Absolute Auto 3.65 K/mm3 (0.9-3.2); Lymphocytes Percent Auto 16.6 % (18.3-44.2); Mean Corpuscular HGB Conc 32.7 g/dl (32-36); Mean Corpuscular Hemoglobin 29.9 pg (26-34); Mean Corpuscular Volume 91.4 fl (80-100); Mean Platelet Volume 8.7 fl (7.4-10.4); Monocytes Absolute Auto 1.2 K/mm3 (0.1-0.6); Monocytes Percent Auto 5.3 % (2.6-8.5); Neutrophils Absolute Auto 14.8 K/mm3 (1.3-6.7); Neutrophils Percent Auto 67.2 % (45.5-73.1); Platelet Count Result 331 k/mm3 (150-375); Red Blood Count 4.91 M/mm3 (4.2-5.4); Red Cell Distribution Width 15.1 % (11.5-14.5)
[2022-02-18 01:38] LABS: Prothrombin Time 13.2 Seconds (11.1-14.7)
[2022-02-18 01:48] LABS: Alanine Aminotransferase 39 U/L (6-35); Albumin Level 3.2 g/dL (3.5-5.1); Alkaline Phosphatase 69 U/L (38-126); Anion Gap 5 mmol/L (8-16); Aspartate Amino Transferase 31 U/L (14-36); Bilirubin,Total 0.4 mg/dL (0.2-1.3); Blood Urea Nitrogen 32 mg/dL (7-17); Calcium 9.5 mg/dL (8.4-10.2); Carbon Dioxide 28 mmol/L (22-30); Chloride 101 mmol/L (98-107); Estimated CRCL calculation 46 ml/min; Estimated Glomerular Filt Rate > 60; Glucose 134 mg/dL (65-110); Lipase 189 U/L (23-300); Magnesium 2.1 mg/dL (1.6-2.3); Potassium 3.6 mmol/L (3.4-5.0); Sodium 134 mmol/L (137-145)
[2022-02-18] MEDS: PANTOPRAZOLE SODIUM IV 40 MG VIAL 80 MG IV PUSH (01:57)
[2022-02-18 02:02] LABS: Atypical Lymphocytes Present; Platelet Estimate Adequate (Adequate)
--- NOTE | 2022-02-18 03:43 | ED.GENADULT ---
HPI - General Adult General Chief complaint: GI Bleed Stated complaint: gi bleed Time Seen by Provider: 02/18/22 00:58 History of Present Illness HPI narrative: this is an 86-year-old female presenting ED with a chief complaint GI bleed. Patient had abdominal pain was diffuse throughout her entire abdomen approximately 3 days ago. It had improved but then earlier today she had a larger red bowel movement. EMS was then called. EMS noted significant blood at the scene. At this time the patient has no physical complaints. Related Data Home Medications Medication Instructions Recorded Confirmed aspirin 81 mg tablet,delayed 81 mg PO DAILY 01/27/19 11/13/21 release (Adult Low Dose Aspirin) calcium carbonate 600 mg calcium 600 mg PO QAM 01/27/19 11/13/21 (1,500 mg) tablet (Calcium) docusate sodium 50 mg capsule 50 mg PO QPM 01/27/19 11/13/21 (Stool Softener) multivitamin 1 tablet PO DAILY 01/27/19 11/13/21 vitamin B complex (B 1 tablet PO DAILY 01/27/19 11/13/21 Complex-Vitamin B12 tablet) Allergies Allergy/AdvReac Type Severity Reaction Status Date / Time Iodinated Contrast Media Allergy Unknown Hives Verified 11/13/21 10:23 iodine Allergy Unknown Unknown Verified 11/13/21 10:23 Penicillins Allergy Unknown Rash Verified 11/13/21 10:23 shellfish derived Allergy Unknown Hives Verified 11/13/21 10:23 PMF Past Medical History Medical History Breast cancer Chronic respiratory failure CVA (cerebral vascular accident) cerebellar Depression History of breast cancer lumpectomy and tamoxifen History of kidney stones Hyperlipidemia Hypertension Hypertension Migraines Osteoporosis PFO (patent foramen ovale) Pulmonary emboli Right wrist fracture Supplemental oxygen dependent Thoracic aortic aneurysm Surgical History Surgical History H/O cataract extraction bilateral History of appendectomy History of laparoscopic cholecystectomy Status post left breast lumpectomy Status post-operative repair of closed fracture of right hip Family History Family History Father Family history of cardiovascular disease Mother Family history of cardiovascular disease Cancer Sibling Family history of cardiovascular disease Son Murder of stranger Social History Social History Social History: Patient is nd has lost her son. She had 7 children prior to that. 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 No alcohol or illicit drugs. She has a modified code she does want to be on the ventilator. Koki Sutton is her daughter who is a durable power ip technology transactions attorney for healthcare. Smoking status: Never smoker Second hand tobacco smoke exposure: Yes Alcohol intake: former Substance use: never Gender identity (if verbalized by the patient): Female Sexual Orientation (if Verbalized by the Patient): Straight or Heterosexual Spiritual care concerns: No Exam Narrative: APPEARANCE: Patient is elderly and frail Head: atraumatic. EYES: EOMI, pale conjunctiva NOSE: Atraumatic NECK: Trachea midline RESPIRATORY: No increased rate of breathing, clear to auscultation CARDIOVASCULAR: Irregular, tachycardic, no peripheral edema ABDOMINAL: abdomen is soft, nontender with no guarding and rebound. Digital rectal exam revealed noé red blood in the rectal vault. MUSCULOSKELETAl: No obvious deformities NEURO: Alert. Moving 4/4 extremities SKIN:: Warm, dry. Normal color PSYCHIATRIC: Normal affect Course Vital Signs Vital signs: Vital Signs Temperature 98.2 F 02/18/22 00:57 Pulse Rate 103 H 02/18/22 00:57 Respiratory Rate 18 02/18/22 00:57 Blood Pressure 121/71 02/18/22 00:57 Pulse Oximetry 96 02/18/22 00:57 Oxygen Delivery Nasal Cannula 02/18/22
[2022-02-18] MEDS: SODIUM CHLORIDE 0.9% IV 250 ML 30 ML IV CONT (03:56)
[2022-02-18] MEDS: TUBING, BLOOD PLUM PUMP TUBING 1 EACH XX (03:56)
--- NOTE | 2022-02-18 04:28 | PC.NURSE ---
0407: CALLED [facility] FOR TRANSPORT TO [facility]. DECLINED DUE TO WEATHER. 0413: CALLED [facility] FOR L&S EMERGENT TRANSFER TO [facility] (#[id number]). A/0 0430 WAITING FOR RETURN CALL WITH [facility].
--- NOTE | 2022-02-18 05:01 | PC.NURSE ---
[facility] here for patient transport to [facility]. Patient care report given to EMS crew. Patient leaving with blood products infusing.
--- NOTE | 2022-02-18 05:09 | PC.NURSE ---
Vital signs taken at 0507 due to EMS crew leaving with patient.
== END 2022-02-18 05:18 | disposition short-term general hospital (02) ==
LOC: ANHED 01:13
PROVIDERS: Emergency Provider Emergency Medicine; PCP Family Medicine
DX: K92.2 Gastrointestinal hemorrhage, unspecified (principal); I48.91 Unspecified atrial fibrillation; J96.10 Chronic respiratory failure, unspecified whether with hypoxia or hypercapnia; E78.5 Hyperlipidemia, unspecified; I10 Essential (primary) hypertension; M81.0 Age-related osteoporosis without current pathological fracture; F32.A Depression, unspecified; Z99.81 Dependence on supplemental oxygen; Z85.3 Personal history of malignant neoplasm of breast; Z86.73 Personal history of transient ischemic attack (TIA), and cerebral infarction without residual deficits; Z86.711 Personal history of pulmonary embolism; Z87.442 Personal history of urinary calculi; Z79.82 Long term (current) use of aspirin; Z98.42 Cataract extraction status, left eye; Z98.41 Cataract extraction status, right eye
CPT/HCPCS: 36415; 36430; 71045; 80053; 83690; 83735; 85025; 85610; 85730; 86850; 86900; 86901; 86920; 96361; 96374; 99285; C9113; J7050; P9016

== ENCOUNTER 2022-09-20 09:41 | Outpatient (CLI) | payer MEDICARE, SELFPAY ==
[2022-09-20 10:15] LABS: Hematocrit 46.9 % (37.0-47.0); Hemoglobin 15.1 g/dL (12.0-15.0)
== END 2022-09-20 09:42 | disposition home or self-care (01) ==
PROVIDERS: PCP Family Medicine; Visit Provider Obstetrics & Gynecology
DX: R93.89 Abnormal findings on diagnostic imaging of other specified body structures (principal); Z01.818 Encounter for other preprocedural examination
CPT/HCPCS: 36415; 85014; 85018

== ENCOUNTER 2022-09-26 00:53 | Day surgery (SDC) | payer MEDICARE, SELFPAY ==
[2022-09-19 09:41] VITALS: BMI 29.4
--- NOTE | 2022-09-19 10:17 | PC.NURSE ---
Report to the Outpatient Waiting Room, entrance under the green pavilion located off [facility], at time __6:00AM on date __09/26/22 . Planned Procedure Time: __7:30AM . Time changes happen often and if your time is changed the preop area will call you the afternoon before. - You and your visitor will be asked to self-screen and do not enter if you have any COVID symptoms. - A mask is optional within the hospital at this time. Patients may have clear liquids (water, carbonated beverages, clear teas, apple juice) until 3 hours prior to surgery with a maximum of 20 ounces. - No food from midnight until time of surgery Take the following medications with a SIP of water the morning of surgery: _AMLODIPINE, METOPROLOL DO NOT STOP ANY OF YOUR OTHER PRESCRIPTION MEDICATIONS PRIOR TO SURGERY ?EXCEPT THE FOLLOWING Medications to discontinue per physician ___HOLD ALL VITAMINS/SUPPLEMENTS 3 DAYS PRE-OP Date to take last dose___09/22/22 Please no make-up, nail croatian, hairspray, perfume, deodorant, or body powder the day of surgery. No jewelry (including any body piercings) or valuables the day of surgery, leave them at home. Please take a shower or bath the night before, or the morning of, surgery with an antibacterial soap. Wear comfortable, loose fitting clothing. Children are encouraged to wear pajamas. - Jewelry must be removed prior to entering the operating room. Rings and piercings that are not removed may be cut off. - The hospital will not accept responsibility for valuables. - Please leave all valuables, including medications, at home the day of surgery. If you are going home after surgery, a licensed van cdl driver must drive you home. - NO public transportation without another adult if you receive anesthesia. - We recommend that an adult stay with you for 24 hours following discharge. - We also recommend that you do not drive, make important decision, drink alcoholic beverages, or take any drugs that were not prescribed by your health care provider for at least 24 hours after your discharge time. Follow any additional instructions given to you from your surgeon. If you or anyone in your household have experienced Covid symptoms in the past week, please notify your surgeon or the nurse liaison at the phone number below for possible testing. Telephone instructions given to _PATIENT & DAUGHTER-DEB and asked if any additional questions and then verbalized understanding. Patient advised to call surgeon office or pre surgery nurse liaison [phone] if any additional questions.
--- NOTE | 2022-09-24 06:39 | PM.IMHP ---
H&P: HPI History of Present Illness Date/Time: 09/24/22 06:39 Chief Complaint: postmenopausal bleeding Narrative: this is an elderly female with thickened endometrium on imaging. She has a myriad of medical problems but is here for diagnostic hysteroscopy and dilatation curettage [facility] Past Medical History Medical History Afib Breast cancer Chronic respiratory failure CVA (cerebral vascular accident) cerebellar Depression History of breast cancer lumpectomy and tamoxifen History of kidney stones Hyperlipidemia Hypertension Hypertension Migraines Osteoporosis PFO (patent foramen ovale) Pulmonary emboli Right wrist fracture Supplemental oxygen dependent Thoracic aortic aneurysm Surgical History Surgical History H/O cataract extraction bilateral History of appendectomy History of laparoscopic cholecystectomy Status post left breast lumpectomy Status post-operative repair of closed fracture of right hip Family History Family History Father Family history of cardiovascular disease Mother Family history of cardiovascular disease Cancer Sibling Family history of cardiovascular disease Son Murder of stranger Social History Social History Social History: Patient is nd has lost her son. She had 7 children prior to that. 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 No alcohol or illicit drugs. She has a modified code she does want to be on the ventilator. Koki Sutton is her daughter who is a durable power associate attorney for healthcare. Smoking status: Never smoker Second hand tobacco smoke exposure: Yes Alcohol intake: former Substance use: never Living arrangements: alone Occupation/Education: retired Gender identity (if verbalized by the patient): Female Sexual Orientation (if Verbalized by the Patient): Straight or Heterosexual Spiritual care concerns: No Meds Home Medications and Allergies Home Medications Medication Instructions Recorded Confirmed Type calcium carbonate 600 mg calcium 600 mg PO QAM 01/27/19 09/19/22 History (1,500 mg) tablet (Calcium) docusate sodium 50 mg capsule 50 mg PO QPM 01/27/19 09/19/22 History (Stool Softener) multivitamin 1 tablet PO DAILY 01/27/19 09/19/22 History vitamin B complex (B 1 tablet PO DAILY 01/27/19 09/19/22 History Complex-Vitamin B12 tablet) metoprolol succinate 50 mg 50 mg PO QAM 03/05/22 09/19/22 History tablet,extended release 24 hr pramipexole 0.25 mg tablet 0.25 mg PO BID #180 tabs 04/08/22 09/19/22 Rx (Mirapex) atorvastatin 20 mg tablet 20 mg PO DAILY #90 tabs 06/20/22 09/19/22 Rx ferrous sulfate 325 mg (65 mg 325 mg PO DAILY #30 tabs 07/04/22 09/19/22 Rx iron) tablet,delayed release amitriptyline 10 mg tablet 10 mg PO HS 09/19/22 09/19/22 History amlodipine 5 mg tablet 5 mg PO QAM 09/19/22 09/19/22 History Allergies Allergy/AdvReac Type Severity Reaction Status Date / Time Iodinated Contrast Media Allergy Unknown Hives Verified 09/19/22 09:35 iodine Allergy Unknown Hives Verified 09/19/22 09:35 Penicillins Allergy Unknown Rash Verified 09/19/22 09:35 shellfish derived Allergy Unknown Hives Verified 09/19/22 09:35 Exam Const: General: cooperative and comfortable Nutritional Appearance: thin Orientation/consciousness: oriented to person, oriented to place and oriented to time HENMT: Head: normal to inspection Resp: Effort & Inspection: normal respiratory effort ( O2 cannula noted) and decreased respiratory effort Cardio: Rate: regular rate Rhythm: regular rhythm Heart sounds: S1 normal heart sound present and S2 normal heart sound present GI: Inspection: normal to inspection : General: Yes other ( exam under anesthesia
--- NOTE | 2022-09-26 05:52 | WPDHPUPDATE1 ---
History and Physical Update Update Date/Time: 09/26/22 05:52 History and Physical has been reviewed, including an updated exam of the patient. There are NO changes in the patient's condition. Risks, benefits, and alternatives have been discussed and questions answered. Patient agrees to proceed with procedure.
[2022-09-26] MEDS: ACETAMINOPHEN 500 MG TABLET 1000 MG PO (06:30)
[2022-09-26] MEDS: LACTATED RINGERS 1,000 ML 30 ML IV CONT (06:30)
--- NOTE | 2022-09-26 06:56 | WPDANESEPPF ---
Anes - Initial Pre Proc Eval Procedure: Operation Date: 09/26/22 07:30 Proposed Procedures p Hysteroscopy, Dilation and Curettage - Ant Lomas MD Date/Time: 09/26/22 06:56 Surgeon: Ant Lomas MD Pre Op Diagnosis: thick endometrial lining, abn ultrasound Patient Data Age: 87 Gender: F Height: 1.57 m Weight: 73 kg Allergies Allergy/AdvReac Type Severity Reaction Status Date / Time Iodinated Contrast Media Allergy Unknown Hives Verified 09/19/22 09:35 iodine Allergy Unknown Hives Verified 09/19/22 09:35 Penicillins Allergy Unknown Rash Verified 09/19/22 09:35 shellfish derived Allergy Unknown Hives Verified 09/19/22 09:35 Home Medications Medication Instructions Recorded Confirmed Type calcium carbonate 600 mg calcium 600 mg PO QAM 01/27/19 09/19/22 History (1,500 mg) tablet (Calcium) docusate sodium 50 mg capsule 50 mg PO QPM 01/27/19 09/19/22 History (Stool Softener) multivitamin 1 tablet PO DAILY 01/27/19 09/19/22 History vitamin B complex (B 1 tablet PO DAILY 01/27/19 09/19/22 History Complex-Vitamin B12 tablet) metoprolol succinate 50 mg 50 mg PO QAM 03/05/22 09/19/22 History tablet,extended release 24 hr pramipexole 0.25 mg tablet 0.25 mg PO BID #180 tabs 04/08/22 09/19/22 Rx (Mirapex) atorvastatin 20 mg tablet 20 mg PO DAILY #90 tabs 06/20/22 09/19/22 Rx ferrous sulfate 325 mg (65 mg 325 mg PO DAILY #30 tabs 07/04/22 09/19/22 Rx iron) tablet,delayed release amitriptyline 10 mg tablet 10 mg PO HS 09/19/22 09/19/22 History amlodipine 5 mg tablet 5 mg PO QAM 09/19/22 09/19/22 History Patient hx anesthesia problems: none Family hx anesthesia problems: none Results Review: All pre-operative results and documents have been reviewed as part of the pre-operative evaluation. [facility] Past Medical History Medical History Afib Breast cancer Chronic respiratory failure CVA (cerebral vascular accident) cerebellar Depression History of breast cancer lumpectomy and tamoxifen History of kidney stones Hyperlipidemia Hypertension Hypertension Migraines Osteoporosis PFO (patent foramen ovale) Pulmonary emboli Right wrist fracture Supplemental oxygen dependent Thoracic aortic aneurysm Surgical History Surgical History H/O cataract extraction bilateral History of appendectomy History of laparoscopic cholecystectomy Status post left breast lumpectomy Status post-operative repair of closed fracture of right hip Family History Family History Father Family history of cardiovascular disease Mother Family history of cardiovascular disease Cancer Sibling Family history of cardiovascular disease Son Murder of stranger Social History Social History Social History: Patient is nd has lost her son. She had 7 children prior to that. 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 No alcohol or illicit drugs. She has a modified code she does want to be on the ventilator. Koki Sutton is her daughter who is a durable power health care technician for healthcare. Smoking status: Never smoker Second hand tobacco smoke exposure: Yes Alcohol intake: former Substance use: never Living arrangements: alone Occupation/Education: retired Gender identity (if verbalized by the patient): Female Sexual Orientation (if Verbalized by the Patient): Straight or Heterosexual Spiritual care concerns: No Anes - Eval Final PreProcedure Day of Procedure 09/26/22 06:56 Patient weight: overweight Heart: irregular rhythm Lungs: decreased breath sounds Airway: Mallampati scale class II Neurological: other (alert) Last oral intake: >/= 8 hours ASA classification: IV Emergent: no Anesthetic plan: proceed
[2022-09-26 07:28] VITALS: BP 134/104; PULSE 69; RESP 16; TEMP 36.3; O2SAT 96
[2022-09-26] MEDS: LIDOCAINE HCL 1% LOCAL INJ 10 ML VIAL INFILTRATE (07:46)
--- NOTE | 2022-09-26 07:54 | W.PM.PROC2 ---
Procedure Note - Detailed Date of Procedure 09/26/22 Pre-op Diagnosis thick endometrial lining, abn ultrasound Post-op Diagnosis Other (Endometrial polyp) Procedure Performed Hysteroscopy/polypectomy/dilatation curettage Surgeon Ant Lomas MD Anesthesia MAC and Local Indications This is the 87-year-old female with thickened endometrium postmenopausal bleed Findings A small uterine polyp was noted around otherwise bland endometrium Description of Procedure Patient was prepped draped in the usual fashion placed in the dorsal lithotomy position. Under excellent sedation weighted speculum placed in posterior fornix cervix grasped single-tooth 2.5cc 1% xylocaine anesthesia placed at 2, 4 8, 10 the cervix. Uterus sounded to 8cm. Serial dilatation prepped down performed followed by the 5mm visualizing a venous scope. A polyp was seen and using the polyp resector this was removed in its entirety. The uterus was scraped over the entire 360?. The instruments were withdrawn the patient went recovery in satisfactory condition. All sponge, needle instrument counts were correct. There were no immediate complications noted Estimated Blood Loss 1 Drains No Packing No Pathology Yes Complications No immediate complications Condition Stable Disposition PACU
[2022-09-26 08:00] VITALS: BP 143/91; PULSE 53; RESP 15; O2SAT 100
[2022-09-26 08:15] VITALS: BP 144/91; PULSE 67; RESP 18; O2SAT 100
[2022-09-26 08:30] VITALS: BP 129/94; PULSE 67; RESP 16; O2SAT 95
[2022-09-26 09:00] VITALS: BP 145/88; PULSE 75; RESP 16; O2SAT 99
== END 2022-09-26 09:15 | disposition home or self-care (01) ==
PROVIDERS: PCP Family Medicine; Visit Provider Obstetrics & Gynecology
PROC: 0U5B8ZZ Destruction of Endometrium, Via Natural or Artificial Opening Endoscopic (ICD-10-PCS; CPT 58563; principal; 2022-09-26 07:30)
DX: N95.0 Postmenopausal bleeding (principal); N84.0 Polyp of corpus uteri; I48.91 Unspecified atrial fibrillation; J96.10 Chronic respiratory failure, unspecified whether with hypoxia or hypercapnia; F32.A Depression, unspecified; E78.5 Hyperlipidemia, unspecified; I10 Essential (primary) hypertension; Q21.12 Patent foramen ovale; I71.20 Thoracic aortic aneurysm, without rupture, unspecified; Z99.81 Dependence on supplemental oxygen; Z86.73 Personal history of transient ischemic attack (TIA), and cerebral infarction without residual deficits; Z85.3 Personal history of malignant neoplasm of breast; Z86.711 Personal history of pulmonary embolism
CPT/HCPCS: 58558; 88305; A9270; J2704; J7120

== ENCOUNTER 2023-03-31 12:39 | Outpatient (CLI) | payer MEDICARE, SELFPAY ==
[2023-03-31 12:35] VITALS: PULSE 89; O2SAT 91
[2023-03-31 12:40] VITALS: PULSE 96; O2SAT 87
[2023-03-31 12:45] VITALS: PULSE 111; O2SAT 87
[2023-03-31 12:50] VITALS: PULSE 110; O2SAT 97
[2023-03-31 12:55] VITALS: PULSE 110; O2SAT 92
[2023-03-31 13:15] VITALS: PULSE 90; O2SAT 92
--- NOTE | 2023-03-31 13:19 | HOMEO2EVAL ---
Evaluation was performed at [facility] Home Oxygen Evaluation RC: Home Oxygen (O2) Evaluation Start: 03/31/23 13:12 Freq: Status: Active Protocol: RPE Activity Type Activity Date Activity User E-sign Co-sign Detail Recorded Client Recorded Date Recorded By Document 03/31/23 12:35 [email or web address] [email or web address] 03/31/23 13:19 PKH Document 03/31/23 12:40 [email or web address] [email or web address] 03/31/23 13:19 PKH Document 03/31/23 12:45 [email or web address] [email or web address] 03/31/23 13:19 PKH Document 03/31/23 12:50 [email or web address] [email or web address] 03/31/23 13:19 PKH Document 03/31/23 12:55 [email or web address] [email or web address] 03/31/23 13:19 PKH Document 03/31/23 13:15 [email or web address] [email or web address] 03/31/23 13:19 PKH 03/31/23 03/31/23 03/31/23 12:35 12:40 12:45 Home O2 Evaluation [Oxygen] -Test Phase Resting Exercise Exercise -Oxygen Delivery Room Air Room Air Nasal Cannula -Oxygen Flow Rate (L/min) 1 [Pulse Oximetry] -Pulse Oximetry (90-100 %) 91 87 L 87 L [Pulse Rate] -Pulse Rate (60-100 beats/min) 89 96 111 H [Exercise] -Ambulation Distance (feet) 300 -Ambulation Distance (meters) 91.43 [Charges] -Evaluation Charges O2 Evaluation by Pulmonary 03/31/23 03/31/23 03/31/23 12:50 12:55 13:15 Home O2 Evaluation [Oxygen] -Test Phase Exercise Exercise Resting -Oxygen Delivery Nasal Cannula Nasal Cannula Room Air -Oxygen Flow Rate (L/min) 2 3 [Pulse Oximetry] -Pulse Oximetry (90-100 %) 97 92 92 [Pulse Rate] -Pulse Rate (60-100 beats/min) 110 H 110 H 90 [Exercise] -Ambulation Distance (feet) -Ambulation Distance (meters) [Charges] -Evaluation Charges
== END 2023-03-31 12:40 | disposition home or self-care (01) ==
LOC: ANHPFT 12:40
PROVIDERS: PCP Family Medicine; Visit Provider Physician Assistant
DX: R09.02 Hypoxemia (principal)
CPT/HCPCS: 94618

== ENCOUNTER 2024-05-08 15:02 | Emergency (ER) | payer MEDICARE, SELFPAY ==
--- NOTE | ~2024-05-08 | XR_ITS ---
CHEST RADIOGRAPH, PA AND LATERAL CLINICAL HISTORY: cough . COMPARISON: 02/18/2022 TECHNIQUE: PA and lateral views of the chest. FINDINGS The cardiomediastinal silhouette is enlarged. The lungs are clear. IMPRESSION: No focal infiltrate or effusion. Reviewed, dictated and finalized at location A.
--- OUTSIDE RECORDS SUMMARY | 2024-05-08 15:04 | XMS_ITS | Clinical Summary ---
Author Organization [facility] [address] Address [address] [place] [address] Care Team Providers Care Carpet Cleaner Name Role Phone Sergei Luis MD Primary Care Provider Allergies Active Allergy Reactions Criticality Noted Date Comments Iodinated Contrast Media Other (See comments) Low 0 08/10/2020 Reaction: Iodine Penicillin Rash Medium 10/04/2019 Medications amitriptyline (ELAVIL) 10 mg tablet Take 1 tablet (10 mg total) by mouth nightly at bedtime. 1 Active cyanocobalamin (Vitamin B-12) 100 mcg tablet Take 1 tablet (100 mcg total) by mouth edge sander before breakfast Active atorvastatin (LIPITOR) 20 mg tablet Take 1 tablet (20 mg total) by mouth edge sander before breakfast 1 Active calcium carbonate (CALCIUM 600 ORAL) Take 1 tablet/chew tab by mouth edge sander before breakfast Active docusate sodium (COLACE) 50 mg capsule Take 1 capsule (50 mg total) by mouth nightly Active multivitamin capsule Take 1 capsule by mouth edge sander before breakfast Active pramipexole (MIRAPEX) 0.25 mg tablet Take 1 tablet (0.25 mg total) by mouth every 12 hours Active vitamin B complex capsule Take 1 capsule by mouth edge sander before breakfast Active metoprolol XL (TOPROL-XL) 50 mg extended release tablet Take 1 tablet (50 mg total) by mouth daily 30 tablet 11 3 Active FeroSuL 325 mg (65 mg iron) tablet Take 1 tablet (325 mg total) by mouth every other day 3 Active oxygenIndicatio ns:Dyspnea Administer 3 L/min into each nostril continuously Active diphenhydrAMINE (BENADRYL) 50 mg capsule Take 1 tab po [address] 6 Active polyethylene glycol (GoLYTELY) 236-22.74-6.74 -5.86 gram solutionIndicat ions:colonoscop y Please follow the instructions sent in the mail by your provider 4000 mL 3 Active Additional Information Patient not taking.Informant: Self, Reported on 03/18/2024 amLODIPine (NORVASC) 2.5 mg tablet Take 2 tablets (5 mg total) by mouth 2 (two) times a day Active lidocaine HCL 4 % cream Apply topically edge sander before breakfast Active ibuprofen (ADVIL LIQUI-GEL ORAL) Take 400 mg by mouth as needed Active hydroCHLOROthia zide (HYDRODIURIL) 25 mg tablet Take 1 tablet (25 mg total) by mouth 2 (two) times a day 4 Active losartan (COZAAR) 100 mg tablet Take 1 tablet (100 mg total) by mouth daily 4 Active Active Problems Problem Noted Date Diagnosed Date Longstanding persistent atrial fibrillation 07/2022 Anemia 04/16/2022 Overview (04/16/2022): Added automatically from request for surgery [id number] History of GI diverticular bleed 04/16/2022 Overview (04/16/2022): Added automatically from request for surgery [id number] Acute blood loss anemia 02/19/2022 Assessment & Plan (02/22/2022 10:10 AM CUTTER MACHINE TENDER): Secondary to acute lower GI bleed as discussed elsewhere Assessment & Plan (02/21/2022 2:34 PM CUTTER MACHINE TENDER): Secondary to acute lower GI bleed as discussed elsewhere Assessment & Plan (02/19/2022 1:04 PM CUTTER MACHINE TENDER): Secondary to acute lower GI bleed as discussed elsewhere Atrial fibrillation with RVR 02/18/2022 Assessment & Plan (02/22/2022 10:09 AM CUTTER MACHINE TENDER): P/w afib with RVR to the 130s; likely in the setting of acute GIB +/- recent Covid. Of note, she was in afib during her 06/2020 echo but prior EKGs have shown NSR. No event monitor in the system. Neither patient nor son aware of prior a fib diagnosis. TSH WNL. TTE EF 63%, no major valvular abnormalities, +biatrial enlargement. - s/p amio drip, discontinued on 02/19 - Transition metop IR 12.5 QID to metop XL 50 daily this AM - 02/19 engaged in shared decision making with son Dae and patient regarding anticoagulation. [id number] is 5. Discussed again with patient and son on 02/21. Plan to defer initiation of anticoagulation this admission and will have her follow- up with her primary care doctor and cardiology after discharge to decide on whether to start this - Continue telemetry while aditted - Ambulatory Referral to [facility] in [place], [place] placed Assessment & Plan (02/21/2022 2:29 PM CUTTER MACHINE TENDER): P/w afib with RVR to the 130s; likely in the setting of acute GIB +/- recent Covid. Of note, she was in afib during her 06/2020 echo but prior EKGs have shown NSR. No event monitor in the system. Neither patient nor son aware of prior a fib diagnosis. TSH WNL. TTE EF 63%, no major valvular abnormalities, +biatrial enlargement. - s/p amio drip, discontinued on 02/19 - Continue metoprolol 12.5 QID today, HRs have been adequate on this - Plan to consolidate to metoprolol 50 XL tomorrow - 02/19 engaged in shared decision making with son Dae and patient regarding anticoagulation. [id number] is 5. Discussed again with patient and son on 02/21. Plan to defer initiation of anticoagulation this admission and will have her follow- up with her primary care doctor and cardiology after discharge to decide on whether to start this - Continue telemetry while aditted - Ambulatory Referral to [facility] in [place], [place] placed Assessment & Plan (02/20/2022 2:39 PM CUTTER MACHINE TENDER): P/w afib with RVR to the 130s; likely in the setting of acute GIB +/- recent Covid. Of note, she was in afib during her 06/2020 echo but prior EKGs have shown NSR. No event monitor in the system. Neither patient nor son aware of prior a fib diagnosis. TSH WNL. TTE EF 63%, no major valvular abnormalities, +biatrial enlargement. - s/p amio drip, discontinued on 02/19 - Continue metoprolol 12.5 QID and will up-titrate as necessary as as BP allows - 02/19 engaged in shared decision making with son Dae and patient regarding anticoagulation. [id number] is 5. Will defer initiation of anticoagulation for now iso recent GI bleed but will re-engage this discussion prior to discharge - Continue telemetry - Will need to place EP cards referral on d/c Assessment & Plan (02/19/2022 1:04 PM CUTTER MACHINE TENDER): P/w afib with RVR to the 130s; likely in the setting of acute GIB +/- recent Covid. Of note, she was in afib during her 06/2020 echo but prior EKGs have shown NSR. No event monitor in the system. Neither patient nor son aware of prior a fib diagnosis. TSH WNL - Discontinue amiodarone drip - Start metoprolol 12.5 QID and will up-titrate as necessary - 02/19 engaged in shared decision making with son Dae and patient regarding anticoagulation. [id number] is 5. Will defer initiation of anticoagulation for now iso recent GI bleed but will re-engage this discussion prior to discharge - TTE - Telemetry - Consider outpatient cardiology referral GIB (gastrointestinal bleeding) 02/18/2022 Assessment & Plan (02/22/2022 10:10 AM CUTTER MACHINE TENDER): P/w 2 episodes of dark red stool on 02/17 evening. Hgb 16->12s, tachycardic, and hypotensive on admission. S/p 2U 02/18 at OSH prior to arrival. CTA showed active extravasation from diverticulosis, now s/p embolization of sigmoidal branches of the VIPUL 02/18/2022. - Given stability, will NOT plan for inpatient flex sig any more - GI team now signed off, will arrange for outpatient follow-up - Trend Hgb - Home aspirin on hold; patient has weak indication for aspirin (primary prevention, has been on for years) therefore will plan to not resume this on discharge - Defer initiation of anticoagulation for now (see a fib for more details) Assessment & Plan (02/21/2022 2:30 PM CUTTER MACHINE TENDER): P/w 2 episodes of dark red stool on 8 evening. Hgb 16->12s, tachycardic, and hypotensive on admission. S/p 2U 02/18 at OSH prior to arrival. CTA showed active extravasation from diverticulosis, now s/p embolization of sigmoidal branches of the VIPUL 02/18/2022. - Given stability, will NOT plan for inpatient flex sig any more - GI team now signed off, will arrange for outpatient follow-up - Trend Hgb - Home aspirin on hold; patient has weak indication for aspirin (primary prevention, has been on for years) therefore will plan to not resume this on discharge - Defer initiation of anticoagulation for now (see a fib for more details) Assessment & Plan (02/20/2022 2:40 PM CUTTER MACHINE TENDER): P/w 2 episodes of dark red stool on 8 evening. Hgb 16->12s, tachycardic, and hypotensive on admission. S/p 2U 02/18 at OSH prior to arrival. CTA showed active extravasation from diverticulosis, now s/p embolization of sigmoidal branches of the VIPUL 02/18/2022. - Possible flex sig tomorrow 02/21 - NPO at [facility] in case of procdure - Trend Hgb - Home aspirin on hold - Defer initiation of anticoagulation for now (see a fib for more details) Assessment & Plan (02/19/2022 1:00 PM CUTTER MACHINE TENDER): P/w 2 episodes of dark red stool on 18 evening. Hgb 16->12s, tachycardic, and hypotensive on admission. S/p 2U 02/18 at OSH prior to arrival. CTA showed active extravasation from diverticulosis, now s/p embolization of sigmoidal branches of the VIPUL 02/18/2022. - GI team deciding on timing of colonoscopy (inpatient vs outpatient) - Discontinue IV PPI - Trend Hgb - Home aspirin on hold - Defer initiation of anticoagulation for now (see a fib for more details) Hypercalcemia 02/18/2022 Assessment & Plan (02/18/2022 11:10 PM CUTTER MACHINE TENDER): Mild elevation on admission, unlikely to be causing symptoms. Likely due to dehydration plus home supplements -Hold calcium supplements, give IVF -Monitor BMP COVID-19 02/18/2022 Assessment & Plan (02/22/2022 10:10 AM CUTTER MACHINE TENDER): Symptoms began 2 days after [place] per family report. Home test positive that day; initial [facility] test positive as of admission 02/18. Completed Paxlovid, methyprednisolone x5 day course, ended sometime last week - continue isolation precautions inpatient through 02/28 as per [facility] guidelines - as per CDC guidelines, already completed total 10 outpatient isolation after initial home test and can resume normal activity on discharge Assessment & Plan (02/21/2022 2:31 PM CUTTER MACHINE TENDER): Symptoms began 2 days after S[place] per family report. Home test positive that day; initial [facility] test positive as of admission 02/18. Completed Paxlovid, methyprednisolone x5 day course, ended sometime last week - continue isolation precautions inpatient through 02/28 as per [facility] guidelines - as per CDC guidelines, already completed total 10 outpatient isolation after initial home test and can resume normal activity on discharge Assessment & Plan (02/20/2022 3:28 PM CUTTER MACHINE TENDER): Symptoms began 2 days after [place] per family report. Home test positive that day; initial [facility] test positive as of admission 02/18. Completed Paxlovid, methyprednisolone x5 day course, ended sometime last week - continue isolation precaution as per CDC and [facility] guidelines Assessment & Plan (02/19/2022 1:02 PM CUTTER MACHINE TENDER): Symptoms began approximately 02/09. Home test positive that day; initial [facility] test positive as of admission 02/18. Completed Paxlovid, methyprednisolone x5 day course, ended sometime last week - continue isolation precaution as per CDC guidelines Restless leg syndrome 02/18/2022 Assessment & Plan (02/18/2022 11:13 PM CUTTER MACHINE TENDER): Cont pramipexole Hyperlipidemia, unspecified 02/18/2022 Assessment & Plan (02/18/2022 11:14 PM CUTTER MACHINE TENDER): Cont atorvastatin History of breast cancer 02/18/2022 Assessment & Plan (02/22/2022 10:11 AM CUTTER MACHINE TENDER): Per patient, diagnosed 2011 s/p resection. No radiation and completed 5 years of tamoxifen Assessment & Plan (02/18/2022 11:14 PM CUTTER MACHINE TENDER): Per patient, diagnosed 2011 s/p resection. No radiation and completed 5 years of tamoxifen Abnormal finding of diagnostic imaging Assessment & Plan (02/22/2022 10:10 AM CUTTER MACHINE TENDER): Incidental finding on CT of thickened endometrial strip to 13mm; patient denies bleeding - PCP should refer to local CL[facility] C[employer] HEL[facility] on discharge Assessment & Plan (02/21/2022 2:34 PM CUTTER MACHINE TENDER): Incidental finding on CT of thickened endometrial strip to 13mm; patient denies bleeding - PCP should refer to local [employer] [employer] [facility] [facility] on discharge Assessment & Plan (02/18/2022 11:15 PM CUTTER MACHINE TENDER): Incidental finding on CT of thickened endometrial strip to 13mm; patient denies bleeding -Refer to gynecology for US and further workup at discharge Chronic hypoxemic respiratory failure 02/18/2022 Assessment & Plan (02/22/2022 10:10 AM CUTTER MACHINE TENDER): Baseline 3L O2 requirement at all times. Previously evaluated by [facility] (Dr. Caren Aldana) without known cause. Currently follows with local gas welding machine operator Dr. Awais Graham - Currently on home 3L O2 - Continuous SpO2 monitoring - F/u with Pulm outpatient Assessment & Plan (02/21/2022 2:34 PM CUTTER MACHINE TENDER): Baseline 3L O2 requirement at all times. Previously evaluated by [facility] (Dr. Caren Aldana) without known cause. Currently follows with local gas welding machine operator Dr. Awais Graham - Currently on home quantity of O2 - Continuous SpO2 monitoring - F/u with Pulm outpatient Assessment & Plan (02/18/2022 11:17 PM CUTTER MACHINE TENDER): Baseline 3L O2 requirement at all times. Previously evaluated by [facility] (Dr. Caren Aldana) without known cause. Currently follows with local gas welding machine operator Dr. Awais Graham -Currently on home O2 -Continuous SpO2 monitoring -F/u with Pulm outpatient (HFpEF) heart failure with preserved ejection fr action 02/18/2022 Assessment & Plan (02/22/2022 10:09 AM CUTTER MACHINE TENDER): TTE (06/2020) with EF 70% and grade 1 diastolic dysfunction. Not currently in exacerbation. Repeat TTE here similar - Hold home BP meds including lisinopril iso borderline low BPs - Strict I&Os, daily weights Assessment & Plan (02/21/2022 2:30 PM CUTTER MACHINE TENDER): TTE (06/2020) with EF 70% and grade 1 diastolic dysfunction. Not currently in exacerbation. Repeat TTE here similar - Hold home BP meds including lisinopril iso borderline low BPs - Strict I&Os, daily weights Assessment & Plan (02/20/2022 2:42 PM CUTTER MACHINE TENDER): TTE (06/2020) with EF 70% and grade 1 diastolic dysfunction. Not currently in exacerbation. Repeat TTE here similar - Hold home HCTZ for now - Strict I&Os, daily weights Assessment & Plan (02/19/2022 1:02 PM CUTTER MACHINE TENDER): TTE (06/2020) with EF 70% and grade 1 diastolic dysfunction. Not currently in exacerbation -Hold home HCTZ for now -Strict I&Os, daily weights -Repeat TTE as above Leukocytosis 02/18/2022 Assessment & Plan (02/22/2022 10:10 AM CUTTER MACHINE TENDER): WBC up to zenith of 40 without overt signs of infection. Neutrophil predominant. Likely secondary to recent steroid use, acute GI bleeding, procedure 02/18. - now improved to 16 - will monitor for signs/symptoms of infection Assessment & Plan (02/21/2022 2:33 PM CUTTER MACHINE TENDER): WBC up to zenith of 40 without overt signs of infection. Neutrophil predominant. Likely secondary to recent steroid use, acute GI bleeding, procedure 02/18. - will monitor for signs/symptoms of infection - continues to improve without intervention Assessment & Plan (02/20/2022 3:29 PM CUTTER MACHINE TENDER): WBC 28.5 -> 40 without signs of infection. Neutrophil predominant. Likely secondary to recent steroid use, acute GI bleeding, procedure 02/18. - will monitor for signs/symptoms of infection - now improving down to 21 without intervention Assessment & Plan (02/19/2022 1:05 PM CUTTER MACHINE TENDER): WBC 28.5 -> 40 without signs of infection. Neutrophil predominant. Likely secondary to recent steroid use, acute GI bleeding, procedure 02/18. - will monitor for signs/symptoms of infection Dyspnea on exertion 09/14/2015 Pulmonary embolism 07/19/2015 Shortness of breath 05/22/2015 Hypertension 12/06/2014 Assessment & Plan (02/22/2022 10:10 AM CUTTER MACHINE TENDER): Continue to hold home amlodipine, HCTZ, and lisinopril iso low BPs Assessment & Plan (02/21/2022 2:34 PM CUTTER MACHINE TENDER): Hold home amlodipine, HCTZ, and lisinopril iso low BPs Assessment & Plan (02/18/2022 11:03 PM CUTTER MACHINE TENDER): Hold home amlodipine, HCTZ, and lisinopril Anxiety 12/06/2014 Assessment & Plan (02/22/2022 10:10 AM CUTTER MACHINE TENDER): Cont amitriptyline Assessment & Plan (02/21/2022 2:34 PM CUTTER MACHINE TENDER): Cont amitriptyline Assessment & Plan (02/18/2022 11:03 PM CUTTER MACHINE TENDER): Cont amitriptyline PFO (patent foramen ovale) 12/06/2014 Assessment & Plan (02/18/2022 11:17 PM CUTTER MACHINE TENDER): -PFO precautions with PALL filters Hypoxemia 12/06/2014 Resolved Problems Problem Noted Date Diagnosed Date Resolved Date Blood per rectum 02/18/2022 02/18/2022 Encounters Date Type Department Care Team Description 03/18/2024 10:15 AM CUTTER MACHINE TENDER Office Visit [facility] [address] [place] [address] Awais Pickard MD Longstanding persistent atrial fibrillation (HCC) (Primary Dx); PFO (patent foramen ovale) from Last 3 Months Surgical History Surgery Date Site/Laterality Comments CHOLECYSTECTOMY CATARACT EXTRACTION EMBOLIZATION VASCULAR EXTRAV ASATION ARTERIAL VENOUS OR LYMPHATIC 02/18/2022 N/A COLONOSCOPY BREAST LUMPECTOMY 02/10/2002 - 02/09/2003 Left Medical History Medical History Date Comments Hypertension Hyperlipidemia Arthritis History of pneumonia Breast cancer (HCC) Peripheral arterial disease Neuropathy Family History Medical History Relation Name Comments Heart disease Brother Family history of cardiac disorder - (Added by TW Conv) Heart disease Father Family history of cardiac disorder - (Added by TW Conv) Anesthesia problems Neg Hx Relation Name Status Comments Brother (Age 63) Father (Age 79) Mother (Age 79) Social History Tobacco Use Types Packs/Day Years Used Date Smoking Tobacco: Never Passive Smoke Exposure: Past Smokeless Tobacco: Never Tobacco Cessation:Counseling Given: Not Answered AUDIT-C Answer Date Recorded Q1: How often do you have a drink containing alcohol? Never 06/14/2022 Q2: How many drinks containi ng alcohol do you have on a typical day when you are drinking? Patient does not drink Q3: How often do you have si x or more drinks on one occasion? Never 06/14/2022 Personal Safety Answer Date Recorded Have you ever been in or are you currently in a harmful physical or emotional relationship or is someone making you feel afraid or unsafe? Denies 06/14/2022 Comments Unknown Sex and Gender Information Value Date Recorded Sex Assigned at Not on file Legal Sex Female 3:49 AM CUTTER MACHINE TENDER Gender Identity Not on file Sexual Orientation Not on file Obstetrics History Last Filed Vital Signs Vital Sign Reading Time Taken Comments Blood Pressure 130/84 03/18/2024 9:58 AM CUTTER MACHINE TENDER Pulse 93 03/18/2024 9:58 AM CUTTER MACHINE TENDER Temperature 36.6 C (97.9 F) 04/05/2022 12:41 PM CUTTER MACHINE TENDER Respiratory Rate 17 06/14/2022 10:0 5 AM CDT Oxygen Saturation 97% 03/18/2024 9:58 AM CUTTER MACHINE TENDER Inhaled Oxygen Concentration - - Weight 76.5 kg (168 lb 11.2 oz) 03/18/2024 9:58 AM CUTTER MACHINE TENDER Height 157.5 cm (5' 2 ) 03/18/2024 9:58 AM CUTTER MACHINE TENDER Body Mass Index 30.86 03/18/2024 9:58 AM CUTTER MACHINE TENDER Plan of Treatment Health Maintenance Due Date Last Done Comments Depression Screening 1935 DTaP/Tdap/Td Vaccine (1 - Tdap) 09/02/1947 Hepatitis B Screening 1953 Well Visit 65+ 2001 Zoster Vaccine (2 of 3) 08/18/2015 06/23/2015 Pneumococcal vaccine 65+ (2 of 2 - PPSV23) 12/06/2019 12/05/2018 Fall Risk Assessment 06/15/2023 06/14/2022 Influenza Vaccine (#1) 2023 0, 10/26/2018, 06/23/2015, Additional history exists Medical Devices Implanted Type Area Teacher Specialist Device Identifier Shelf Expiration Date Model / Serial / Lot [employer] Coil Embolization Coated Detachable Helical Concerto [id number] Nylon Em-1-9-[place] - [id number] Implanted:Qty: 1 on 02/18/2022 at [facility] [employer] 09/19/2024 NV-2-4-NELLY X / / [id number] [employer] Coil Embolization Coated Detachable Helical Concerto [id number] Nylon Eh-4-3-[place] - [id number] Implanted:Qty: 1 on 02/18/2022 at [facility] [employer] 10/15/2024 NV-2-4-NELLY X / / [id number] [employer] [facility] Angio-Seal Vip 6fr Closere Device [id number] - [id number] Implanted:Qty: 1 on 02/18/2022 at [facility] [employer] 11/09/2022 [id number] / / [id number] Insurance MEDICARE [facility] MEDICARE [facility] [address] MEDICARE BLUE CROSS MEDICARE SUPPLEMENT Advance Directives For more information, please contact: [phone] Documents on File Type Date Recorded Patient Charge Machine Operator Expl anation ADVANCE DIRECTIVE 02/19/2022 6:54 PM POWER OF TRAVELERS' AID WORKER-MEDICAL * LIMITED - No CPR (Latest Code Status on File) Date Activated Date Inactivated Comments 02/18/2022 10:44 PM 02/22/2022 3:47 PM Question Answer Comments Provide aggressive medical m anagement before a full cardiopulmonary arrest occurs. Use antibiotics, IV Fluids, and medical treatment unless specifically selected below: No intubationNo vasopressorsNo non-invasive ventilationNo cardioversionNo internal / external pacemaker Care Teams Carpet Cleaner Relationship Specialty Start Date End Date Sergei Luis MD [address] [facility] [address] [place] [address] PCP - General Family Medicine 08/18/18
--- OUTSIDE RECORDS SUMMARY | 2024-05-08 15:04 | XMS_ITS | Referral Summary ---
Author Organization [facility] [address] [facility] [address] Address [address] [place] [address] Care Team Providers Care Set And Exhibit Designer Name Role Phone Sergei Luis MD Primary Care Provider Encounters Date Type Department Care Team Description 03/18/2024 10:15 AM OFFSET PRINTING OPERATOR Office Visit [facility] [address] [place] [address] Awais Pickard MD Longstanding persistent atrial fibrillation (HCC) (Primary Dx); PFO (patent foramen ovale) from Last 3 Months Allergies Active Allergy Reactions Criticality Noted Date Comments Iodinated Contrast Media Other (See comments) Low 0 08/10/2020 Reaction: Iodine Penicillin Rash Medium 10/04/2019 Medications amitriptyline (ELAVIL) 10 mg tablet Take 1 tablet (10 mg total) by mouth nightly at bedtime. 1 Active cyanocobalamin (Vitamin B-12) 100 mcg tablet Take 1 tablet (100 mcg total) by mouth horizontal drill operator before breakfast Active atorvastatin (LIPITOR) 20 mg tablet Take 1 tablet (20 mg total) by mouth horizontal drill operator before breakfast 1 Active calcium carbonate (CALCIUM 600 ORAL) Take 1 tablet/chew tab by mouth horizontal drill operator before breakfast Active docusate sodium (COLACE) 50 mg capsule Take 1 capsule (50 mg total) by mouth nightly Active multivitamin capsule Take 1 capsule by mouth horizontal drill operator before breakfast Active pramipexole (MIRAPEX) 0.25 mg tablet Take 1 tablet (0.25 mg total) by mouth every 12 hours Active vitamin B complex capsule Take 1 capsule by mouth horizontal drill operator before breakfast Active metoprolol XL (TOPROL-XL) 50 [...] lidocaine HCL 4 % cream Apply topically horizontal drill operator before breakfast Active ibuprofen (ADVIL LIQUI-GEL ORAL) [...] (04/16/2022): Added automatically from request for surgery [id number] History of GI diverticular bleed 04/16/2022 Overview (04/16/2022): Added automatically from request for surgery [id number] Acute blood loss anemia 02/19/2022 Assessment & Plan (02/22/2022 10:10 AM OFFSET PRINTING OPERATOR): Secondary to acute lower GI bleed as discussed elsewhere Assessment & Plan (02/21/2022 2:34 PM OFFSET PRINTING OPERATOR): Secondary to acute lower GI bleed as discussed elsewhere Assessment & Plan (02/19/2022 1:04 PM OFFSET PRINTING OPERATOR): Secondary to acute lower GI bleed as discussed elsewhere Atrial fibrillation with RVR 02/18/2022 Assessment & Plan (02/22/2022 10:09 AM OFFSET PRINTING OPERATOR): P/w afib with RVR to the 130s; [...] with son Dae and patient regarding anticoagulation. [id number] is 5. Discussed again with patient and son on 02/21. Plan to defer initiation of anticoagulation this admission and will have her follow- up with her primary care doctor and cardiology after discharge to decide on whether to start this - Continue telemetry while aditted - Ambulatory Referral to [facility] in [facility] Assessment & Plan (02/21/2022 2:29 PM OFFSET PRINTING OPERATOR): P/w afib with RVR to the 130s; [...] with son Dae and patient regarding anticoagulation. [id number] is 5. Discussed again with patient and son on 02/21. Plan to defer initiation of anticoagulation this admission and will have her follow- up with her primary care doctor and cardiology after discharge to decide on whether to start this - Continue telemetry while aditted - Ambulatory Referral to [facility] in [facility] Assessment & Plan (02/20/2022 2:39 PM OFFSET PRINTING OPERATOR): P/w afib with RVR to the 130s; [...] with son Dae and patient regarding anticoagulation. [id number] is 5. Will defer initiation of anticoagulation for now iso recent GI bleed but will re-engage this discussion prior to discharge - Continue telemetry - Will need to place EP cards referral on d/c Assessment & Plan (02/19/2022 1:04 PM OFFSET PRINTING OPERATOR): P/w afib with RVR to the 130s; [...] with son Dae and patient regarding anticoagulation. [id number] is 5. Will defer initiation of anticoagulation for now iso recent GI bleed but will re-engage this discussion prior to discharge - TTE - Telemetry - Consider outpatient cardiology referral GIB (gastrointestinal bleeding) 02/18/2022 Assessment & Plan (02/22/2022 10:10 AM OFFSET PRINTING OPERATOR): P/w 2 episodes of dark red stool [...] details) Assessment & Plan (02/21/2022 2:30 PM OFFSET PRINTING OPERATOR): P/w 2 episodes of dark red stool [...] details) Assessment & Plan (02/20/2022 2:40 PM OFFSET PRINTING OPERATOR): P/w 2 episodes of dark red stool [...] details) Assessment & Plan (02/19/2022 1:00 PM OFFSET PRINTING OPERATOR): P/w 2 episodes of dark red stool [...] 02/18/2022 Assessment & Plan (02/18/2022 11:10 PM OFFSET PRINTING OPERATOR): Mild elevation on admission, unlikely to be causing symptoms. Likely due to dehydration plus home supplements -Hold calcium supplements, give IVF -Monitor BMP COVID-19 02/18/2022 Assessment & Plan (02/22/2022 10:10 AM OFFSET PRINTING OPERATOR): Symptoms began 2 days after [place] per [...] discharge Assessment & Plan (02/21/2022 2:31 PM OFFSET PRINTING OPERATOR): Symptoms began 2 days after [place] per family report. Home test positive that [...] discharge Assessment & Plan (02/20/2022 3:28 PM OFFSET PRINTING OPERATOR): Symptoms began 2 days after [place] per family report. Home test positive that day; initial [facility] test positive as of admission 02/18. Completed Paxlovid, methyprednisolone x5 day course, ended sometime last week - continue isolation precaution as per CDC and [facility] guidelines Assessment & Plan (02/19/2022 1:02 PM OFFSET PRINTING OPERATOR): Symptoms began approximately 02/09. Home test positive that day; initial [facility] test positive as of admission 02/18. Completed Paxlovid, methyprednisolone x5 day course, ended sometime last week - continue isolation precaution as per CDC guidelines Restless leg syndrome 02/18/2022 Assessment & Plan (02/18/2022 11:13 PM OFFSET PRINTING OPERATOR): Cont pramipexole Hyperlipidemia, unspecified 02/18/2022 Assessment & Plan (02/18/2022 11:14 PM OFFSET PRINTING OPERATOR): Cont atorvastatin History of breast cancer 02/18/2022 Assessment & Plan (02/22/2022 10:11 AM OFFSET PRINTING OPERATOR): Per patient, diagnosed 2011 s/p resection. No radiation and completed 5 years of tamoxifen Assessment & Plan (02/18/2022 11:14 PM OFFSET PRINTING OPERATOR): Per patient, diagnosed 2011 s/p resection. No radiation and completed 5 years of tamoxifen Abnormal finding of diagnostic imaging Assessment & Plan (02/22/2022 10:10 AM OFFSET PRINTING OPERATOR): Incidental finding on CT of thickened endometrial strip to 13mm; patient denies bleeding - PCP should refer to local CONFIGURATION DEVELOPER on discharge Assessment & Plan (02/21/2022 2:34 PM OFFSET PRINTING OPERATOR): Incidental finding on CT of thickened endometrial strip to 13mm; patient denies bleeding - PCP should refer to local CONFIGURATION DEVELOPER on discharge Assessment & Plan (02/18/2022 11:15 PM OFFSET PRINTING OPERATOR): Incidental finding on CT of thickened endometrial strip to 13mm; patient denies bleeding -Refer to gynecology for US and further workup at discharge Chronic hypoxemic respiratory failure 02/18/2022 Assessment & Plan (02/22/2022 10:10 AM OFFSET PRINTING OPERATOR): Baseline 3L O2 requirement at all times. Previously evaluated by [facility] Cardiology [facility] Pulmonology (Dr. Caren Aldana) without known cause. Currently follows with local electronics engineering technologist Dr. Awais Graham - Currently on home 3L O2 - Continuous SpO2 monitoring - F/u with Pulm outpatient Assessment & Plan (02/21/2022 2:34 PM OFFSET PRINTING OPERATOR): Baseline 3L O2 requirement at all times. Previously evaluated by [facility] Cardiology and Pulmonology (Dr. Caren Aldana) without known cause. Currently follows with local electronics engineering technologist Dr. Awais Graham - Currently on home quantity of O2 - Continuous SpO2 monitoring - F/u with Pulm outpatient Assessment & Plan (02/18/2022 11:17 PM OFFSET PRINTING OPERATOR): Baseline 3L O2 requirement at all times. Previously evaluated by [facility] Cardiology and Pulmonology (Dr. Caren Aldana) without known cause. Currently follows with local electronics engineering technologist Dr. Awais Graham -Currently on home O2 -Continuous SpO2 monitoring -F/u with Pulm outpatient (HFpEF) heart failure with preserved ejection fr action 02/18/2022 Assessment & Plan (02/22/2022 10:09 AM OFFSET PRINTING OPERATOR): TTE (06/2020) with EF 70% and grade 1 diastolic dysfunction. Not currently in exacerbation. Repeat TTE here similar - Hold home BP meds including lisinopril iso borderline low BPs - Strict I&Os, daily weights Assessment & Plan (02/21/2022 2:30 PM OFFSET PRINTING OPERATOR): TTE (06/2020) with EF 70% and grade 1 diastolic dysfunction. Not currently in exacerbation. Repeat TTE here similar - Hold home BP meds including lisinopril iso borderline low BPs - Strict I&Os, daily weights Assessment & Plan (02/20/2022 2:42 PM OFFSET PRINTING OPERATOR): TTE (06/2020) with EF 70% and grade 1 diastolic dysfunction. Not currently in exacerbation. Repeat TTE here similar - Hold home HCTZ for now - Strict I&Os, daily weights Assessment & Plan (02/19/2022 1:02 PM OFFSET PRINTING OPERATOR): TTE (06/2020) with EF 70% and grade 1 diastolic dysfunction. Not currently in exacerbation -Hold home HCTZ for now -Strict I&Os, daily weights -Repeat TTE as above Leukocytosis 02/18/2022 Assessment & Plan (02/22/2022 10:10 AM OFFSET PRINTING OPERATOR): WBC up to zenith of 40 without overt signs of infection. Neutrophil predominant. Likely secondary to recent steroid use, acute GI bleeding, procedure 02/18. - now improved to 16 - will monitor for signs/symptoms of infection Assessment & Plan (02/21/2022 2:33 PM OFFSET PRINTING OPERATOR): WBC up to zenith of 40 without overt signs of infection. Neutrophil predominant. Likely secondary to recent steroid use, acute GI bleeding, procedure 02/18. - will monitor for signs/symptoms of infection - continues to improve without intervention Assessment & Plan (02/20/2022 3:29 PM OFFSET PRINTING OPERATOR): WBC 28.5 -> 40 without signs of infection. Neutrophil predominant. Likely secondary to recent steroid use, acute GI bleeding, procedure 02/18. - will monitor for signs/symptoms of infection - now improving down to 21 without intervention Assessment & Plan (02/19/2022 1:05 PM OFFSET PRINTING OPERATOR): WBC 28.5 -> 40 without signs of infection. Neutrophil predominant. Likely secondary to recent steroid use, acute GI bleeding, procedure 02/18. - will monitor for signs/symptoms of infection Dyspnea on exertion 09/14/2015 Pulmonary embolism 07/19/2015 Shortness of breath 05/22/2015 Hypertension 12/06/2014 Assessment & Plan (02/22/2022 10:10 AM OFFSET PRINTING OPERATOR): Continue to hold home amlodipine, HCTZ, and lisinopril iso low BPs Assessment & Plan (02/21/2022 2:34 PM OFFSET PRINTING OPERATOR): Hold home amlodipine, HCTZ, and lisinopril iso low BPs Assessment & Plan (02/18/2022 11:03 PM OFFSET PRINTING OPERATOR): Hold home amlodipine, HCTZ, and lisinopril Anxiety 12/06/2014 Assessment & Plan (02/22/2022 10:10 AM OFFSET PRINTING OPERATOR): Cont amitriptyline Assessment & Plan (02/21/2022 2:34 PM OFFSET PRINTING OPERATOR): Cont amitriptyline Assessment & Plan (02/18/2022 11:03 PM OFFSET PRINTING OPERATOR): Cont amitriptyline PFO (patent foramen ovale) 12/06/2014 Assessment & Plan (02/18/2022 11:17 PM OFFSET PRINTING OPERATOR): -PFO precautions with PALL filters Hypoxemia 12/06/2014 Resolved Problems Problem Noted Date Diagnosed Date Resolved Date Blood per rectum 02/18/2022 02/18/2022 Social History Tobacco Use Types Packs/Day Years [...] on file Legal Sex Female 3:49 AM OFFSET PRINTING OPERATOR Gender Identity Not on file Sexual Orientation Not on file Last Filed Vital Signs Vital Sign Reading Time Taken Comments Blood Pressure 130/84 03/18/2024 9:58 AM OFFSET PRINTING OPERATOR Pulse 93 03/18/2024 9:58 AM OFFSET PRINTING OPERATOR Temperature 36.6 C (97.9 F) 04/05/2022 12:41 PM OFFSET PRINTING OPERATOR Respiratory Rate 17 06/14/2022 10:0 5 AM CDT Oxygen Saturation 97% 03/18/2024 9:58 AM OFFSET PRINTING OPERATOR Inhaled Oxygen Concentration - - Weight 76.5 kg (168 lb 11.2 oz) 03/18/2024 9:58 AM OFFSET PRINTING OPERATOR Height 157.5 cm (5' 2 ) 03/18/2024 9:58 AM OFFSET PRINTING OPERATOR Body Mass Index 30.86 03/18/2024 9:58 AM OFFSET PRINTING OPERATOR Plan of Treatment Not on file Medical Devices Implanted Type Area Air Traffic Systems Technician Device Identifier Shelf Expiration Date Model / Serial / Lot [employer] Coil Embolization Coated Detachable Helical Concerto [id number] Nylon Qm-6-8-Willis - [id number] Implanted:Qty: 1 on 02/18/2022 at [facility] [employer] 09/19/2024 NV-2-4-NELLY X / / [id number] [employer] Coil Embolization Coated Detachable Helical Concerto [id number] Nylon Os-3-7-Willis - [id number] Implanted:Qty: 1 on 02/18/2022 at [facility] [employer] 10/15/2024 NV-2-4-NELLY X / / [id number] [email or web address] Angio-Seal Vip 6fr Closere Device [id number] - [id number] Implanted:Qty: 1 on 02/18/2022 at [facility] [email or web address] 11/09/2022 [id number] / / [id number] Insurance MEDICARE [facility] MEDICARE [facility] MEDICARE [facility] MEDICARE SUPPLEMENT Advance Directives For more information, please contact: [phone] Documents on File Type Date Recorded Patient Rehabilitation Clerk Expl anation ADVANCE DIRECTIVE 02/19/2022 6:54 PM POWER OF BEHAVIORAL HEALTH PROFESSIONAL-MEDICAL * LIMITED - No CPR (Latest Code Status on File) Date Activated Date Inactivated Comments 02/18/2022 10:44 PM 02/22/2022 3:47 PM Question Answer Comments Provide aggressive medical m anagement before a full cardiopulmonary arrest occurs. Use antibiotics, IV Fluids, and medical treatment unless specifically selected below: No intubationNo vasopressorsNo non-invasive ventilationNo cardioversionNo internal / external pacemaker Care Teams Set And Exhibit Designer Relationship Specialty Start Date End Date Sergei Luis MD [address] [facility] [address] [place] [address] PCP - General Family Medicine 08/18/18
--- NOTE | 2024-05-08 15:08 | ED_ITS ---
HPI - General Adult General Chief complaint: Upper Respiratory Infection Stated complaint: chest hurts w cough/body pains Time Seen by Provider: 05/08/24 15:08 Source: patient Mode of arrival: ambulatory Limitations: no limitations History of Present Illness HPI narrative: 88-year-old female patient presents to [facility] with complaints of a cough that started Yesterday. Patient does wear oxygen due to AFib and cardiac issues but denies any chronic lung disease. Patient states that she has had some shortness of breath with the coughing but no shortness of breath at rest. Denies fevers but states she has had some body aches and chills that started today patient has tried taking some [id number] Mucinex. Denies any current chest pain. Denies any abdominal pain, nausea, vomiting or diarrhea. Related Data Home Medications ?Medication ?Instructions ?Recorded ?Confirmed ?Last Taken ?Type calcium carbonate (Calcium 600) 600 mg PO QAM 01/27/19 04/13/24 09/22/22 History docusate sodium 50 mg capsule 50 mg PO QPM 01/27/19 04/13/24 06/25/20 21:30 History (Stool Softener) vitamin B complex (B 1 tablet PO DAILY 01/27/19 04/13/24 09/22/22 History Complex-Vitamin B12 tablet) Allergies Allergy/AdvReac Type Severity Reaction Status Date / Time Iodinated Contrast Media Allergy Unknown Hives Verified 05/08/24 15:18 iodine Allergy Unknown Hives Verified 05/08/24 15:18 Penicillins Allergy Unknown Rash Verified 05/08/24 15:18 shellfish derived Allergy Unknown Hives Verified 05/08/24 15:18 Review of Systems Review of Systems: CONSTITUTIONAL: Denies fever, positive body aches and chills, denies sweats. EYES: Denies visual changes, redness, or discharge. ENT: Denies rhinorrhea, congestion, sore throat, or otalgia. CARDIOVASCULAR: Denies chest pain, palpitations, or edema. RESPIRATORY: Positive cough denies current dyspnea. GASTROINTESTINAL: Denies abdominal pain, nausea, vomiting, or diarrhea. GENITOURINARY: Denies dysuria or hematuria. SKIN: Denies rash or itching. MUSCULOSKELETAL: Denies back pain, joint pain, or myalgia. NEUROLOGIC: Denies headache, numbness, or weakness. PSYCHIATRIC: Denies anxiety or depression. PMFSH Past Medical History Medical History Afib Supplemental oxygen dependent Chronic respiratory failure Thoracic aortic aneurysm Hyperlipidemia Depression Osteoporosis Right wrist fracture History of kidney stones Migraines History of breast cancer lumpectomy and tamoxifen CVA (cerebral vascular accident) cerebellar Pulmonary emboli Hypertension PFO (patent foramen ovale) Breast cancer Hypertension Surgical History Surgical History History of appendectomy Status post-operative repair of closed fracture of right hip History of laparoscopic cholecystectomy Status post left breast lumpectomy H/O cataract extraction bilateral Family History Family History Father Family history of cardiovascular disease Mother Family history of cardiovascular disease Cancer Sibling Family history of cardiovascular disease Son Murder of stranger Social History Social History Social History: Patient is nd has lost her son. She had 7 children prior to that. 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 No alcohol or illicit drugs. She has a modified code she does want to be on the ventilator. Koki Sutton is her daughter who is a durable power duck farmer for healthcare. Smoking status: Never smoker Second hand tobacco smoke exposure: Yes Alcohol intake: former Substance use: never Living arrangements: alone Occupation/Education: retired Gender identity (if verbalized by the patient): Female Sexual Orientation (if Verbalized by the Patient): Straight or Heterosexual Spiritual care concerns: No Comments At the time of my signature I agree with nursing past medical history, surgical, social, and family history. There is no relevant family history pertinent to the presenting complaint. Exam Narrative: GENERAL: Well-appearing, well-nourished, and in no acute distress. HEAD: Normocephalic, atraumatic. EYES: PERRLA and EOMI. ENT: Nares clear, no rhinorrhea or epistaxis. Mucous membranes moist. posterior pharynx with some postnasal drip present but no tonsillar enlargement, no exudates or lesions present. Bilateral TMs are clear no erythema or foreign bodies the canal. NECK: Supple. No lymphadenopathy CHEST: Slight decreased lung sounds noted to bilateral lower lobes but no wheezing noted.. No respiratory distress. Patient is currently on their supplemental oxygen stating 94% HEART: Regular rate and rhythm. No murmur heard. Normal peripheral pulses. ABDOMEN: Soft, nontender, nondistended, normal active bowel sounds. EXTREMITIES: Normal range of motion. No edema. SKIN: Warm, dry, no rash. NEURO: No focal deficits. Alert and oriented x3. Course Course Level of Care: Express Care Visit Reevaluation(s) Reevaluation #1: re-evaluated patient notified her that her x-ray is negative for any pneumonia and all of her point of care swabs came back negative. Discussed with her this is most likely a virus and will take some time to get over. Discussed with patient I will provide her some Tessalon Perles and a mild steroid to help with the coughing. If her symptoms worsen and she develops chest pain, shortness of breath high fevers that will go away or if her symptoms are lasting longer than 2 weeks then she needs to be assessed in the emergency department. Patient and son are aware of the plan of care denies any other questions or concerns. Date: 05/08/24 Time: 16:11 Vital Signs Vital signs: Vital Signs Temperature 37.3 C 05/08/24 15:15 Pulse Rate 65 05/08/24 15:15 Respiratory Rate 18 05/08/24 15:15 Blood Pressure 147/77 H 05/08/24 15:15 Pulse Oximetry 94 05/08/24 15:15 Oxygen Delivery Nasal Cannula 05/08/24 15:15 Oxygen Flow Rate 2 05/08/24 15:15 Temperature 37.3 C 05/08/24 15:15 Pulse Rate 65 05/08/24 15:15 Respiratory Rate 18 05/08/24 15:15 Blood Pressure 147/77 H 05/08/24 15:15 Pulse Oximetry 94 05/08/24 15:15 Oxygen Delivery Nasal Cannula 05/08/24 15:15 Oxygen Flow Rate 2 05/08/24 15:15 Vital signs reviewed. Medical Decision Making MDM Narrative Medical decision making narrative: plan care for patient is to swab her today for influenza, COVID, RSV as well as do a chest x-ray to rule out pneumonia. I will reassess patient once this has resulted. Differential Diagnosis Differential Diagnosis: Differential diagnosis: Allergic rhinitis, chronic sinusitis, tonsillitis, acute sinusitis, infectious mononucleosis, seasonal influenza, pertussis, diphtheria, meningococcal disease, viral syndrome, viral bronchitis, RSV, COVID- 19 Vital Signs Vital Signs: Vital Signs Temperature 37.3 C 05/08/24 15:15 Pulse Rate 65 05/08/24 15:15 Respiratory Rate 18 05/08/24 15:15 Blood Pressure 147/77 H 05/08/24 15:15 Pulse Oximetry 94 05/08/24 15:15 Oxygen Delivery Nasal Cannula 05/08/24 15:15 Oxygen Flow Rate 2 05/08/24 15:15 Temperature 37.3 C 05/08/24 15:15 Pulse Rate 65 05/08/24 15:15 Respiratory Rate 18 05/08/24 15:15 Blood Pressure 147/77 H 05/08/24 15:15 Pulse Oximetry 94 05/08/24 15:15 Oxygen Delivery Nasal Cannula 05/08/24 15:15 Oxygen Flow Rate 2 05/08/24 15:15 Lab Data Labs: Lab Results 05/08/24 Range/Units 15:41 POC Nasal Swab RSV Negative (Negative) POC Influenza A Ag Negative (Negative) POC Influenza B Ag Negative (Negative) POC SARS CoV-2 Ag Negative (Negative) Imaging Data Radiologist's impression: [place] [address] XRay Report Signed Patient: Allison Gong : 1935 MR#: [id number] Age: 88 Acct:[id number] Loc: [facility] ADM Date: 05/08/24Attending Dr: Ordering Physician: Angie Duncan APRN Date of Service: 05/08/24 Procedure(s): XR chest 2V Accession Number(s): [id number] cc: Sergei Luis MD; Angie Duncan APRN~ CHEST RADIOGRAPH, PA AND LATERAL CLINICAL HISTORY: cough . COMPARISON: 02/18/2022 TECHNIQUE: PA and lateral views of the chest. FINDINGS The cardiomediastinal silhouette is enlarged. The lungs are clear. IMPRESSION: No focal infiltrate or effusion. Reviewed, dictated and finalized at location A. Critical Care Time Critical Care Time Critical Care Time: No Discharge Plan Discharge Clinical Impression: Viral URI with cough Patient Disposition: Home, Self-Care Condition: Stable Instructions: Antibiotic Form, Viral Syndrome (ED) Additional Instructions: Viral illness may last between 7-12days; antibiotic is NOT recommended at this time. Recommend antihistamine such as Benadryl at night time and Claritin/Zyrtec/Cindy during the day Cough syrup may cause drowsiness; avoid driving or take it at night time. Also, recommend symptomatic treatment includes: rest, fluids, and increase humidity of the air at home. Recommend Acetaminophen or nonsteroidal anti-inflammatory agents (NSAIDs) as d irected in the bottle to reduce fever and/pain/headache. Avoid smoking/second-hand smoke. Limit visits to areas with large crowds. Please schedule a follow-up visit with your personal physician for further evaluation and treatment within 3-5days. Including recheck and discussion of your blood pressure. If your symptoms persist, change or worsen significantly before you can contact your personal physician then please, without delay, go to the emergency department for further evaluation. Patient Language: Maori Prescriptions: New benzonatate 200 mg capsule 200 mg PO TID PRN (Reason: cough) 10 Days Qty: 30 0RF methylprednisolone 4 mg tablets,dose pack See Rx Instructions PO .COMPLEX Qty: 21 0RF Rx Instructions: for 6 days No Action calcium carbonate [Calcium 600] 600 mg calcium (1,500 mg) tablet 600 mg PO QAM vitamin B complex [B Complex-Vitamin B12] Tablet 1 tablet PO DAILY Stool Softener 50 mg capsule 50 mg PO QPM ferrous sulfate 325 mg (65 mg iron) tablet,delayed release (DR/EC) 325 mg PO .COMPLEX Qty: 30 5RF Rx Instructions: 325 mg orally every other day; pramipexole 0.25 mg tablet 0.25 mg PO BID Qty: 180 2RF amitriptyline 10 mg tablet 10 mg PO HS Qty: 90 1RF Rx Instructions: TAKE 1 TABLET BY MOUTH AT BEDTIME atorvastatin 20 mg tablet 20 mg PO DAILY Qty: 90 1RF losartan 100 mg tablet 100 mg PO DAILY Qty: 30 5RF metoprolol succinate 50 mg tablet extended release 24 hr 50 mg PO QAM Qty: 90 1RF hydrochlorothiazide 25 mg tablet 25 mg PO BID Qty: 90 1RF Follow-up/Referrals: Sergei Luis MD [Primary Care Provider] - Time of Disposition: 16:06
[2024-05-08 15:15] VITALS: BP 147/77; PULSE 65; RESP 18; TEMP 37.3; O2SAT 94
[2024-05-08 15:43] LABS: EDCOVIDSCREEN Negative (Negative); EDINFLUASCREEN Negative (Negative); EDINFLUBSCREEN Negative (Negative); EDRSVNEGPOS Negative (Negative)
== END 2024-05-08 16:12 | disposition home or self-care (01) ==
PROVIDERS: Emergency Provider Nurse Practitioner Family; PCP Family Medicine
DX: J06.9 Acute upper respiratory infection, unspecified (principal); R05.9 Cough, unspecified; Z20.822 Contact with and (suspected) exposure to COVID-19; I48.91 Unspecified atrial fibrillation; Z99.81 Dependence on supplemental oxygen; I10 Essential (primary) hypertension; E78.5 Hyperlipidemia, unspecified; M81.0 Age-related osteoporosis without current pathological fracture; Z86.73 Personal history of transient ischemic attack (TIA), and cerebral infarction without residual deficits; Z85.3 Personal history of malignant neoplasm of breast; Z86.711 Personal history of pulmonary embolism; Z98.42 Cataract extraction status, left eye; Z98.41 Cataract extraction status, right eye
CPT/HCPCS: 71046; 87420; 87426; 87804; 99213; G0463